=== PATIENT | male | born 1950 | race Caucasian/White ===

== ENCOUNTER 2019-09-08 03:07 | Outpatient (CLI) | payer MEDICARE, SELFPAY ==
[2019-09-08 10:26] LABS: Calculated LDL 198 mg/dL (<100); Cholesterol 262 mg/dL (<200); Glucose 90 mg/dL (74-106); HDL Cholesterol 50 mg/dL (40-60); Triglyceride 73 mg/dL (<150)
== END 2019-09-08 03:27 ==
PROVIDERS: PCP Nurse Practitioner; Visit Provider Nurse Practitioner
DX: E78.89 Other lipoprotein metabolism disorders (principal); Z13.1 Encounter for screening for diabetes mellitus; Z13.6 Encounter for screening for cardiovascular disorders
CPT/HCPCS: 36415; 80061; 82947

== ENCOUNTER 2019-09-13 02:34 | Outpatient (CLI) | payer MEDICARE, SELFPAY ==
--- NOTE | 2019-10-03 08:20 | ZIOP_ITS ---
Date of service: 10/03/19 Time of Service: 08:20 ZIO Patch Marketing Communications Assistant Note: There is a 2-week ZIO patch ordered for the indication of palpitations. ?The patient was in normal sinus rhythm for the majority of the recording. ?There were 9 episodes of supraventricular tachycardia with the longest lasting 19 beats. ?There were frequent (8.7%) isolated supraventricular ectopic beats. ?There were no episodes of ventricular tachycardia and rare (less than 1%) single ventricular ectopic beats. ?There were no episodes of atrial fibrillation no pauses greater than 3 seconds and no episodes of high degree heart block. ?Patient triggered events were associated with sinus rhythm as well as supraventricular ectopic beats.
== END 2019-09-13 02:54 ==
PROVIDERS: PCP Nurse Practitioner; Visit Provider Nurse Practitioner
DX: R00.2 Palpitations (principal); I49.3 Ventricular premature depolarization
CPT/HCPCS: 93270

== ENCOUNTER 2019-10-03 08:20 | Outpatient (CLI) | payer MEDICARE, SELFPAY | END 2019-10-03 08:40 | PROVIDERS: PCP Nurse Practitioner; Referring Provider Nurse Practitioner; Visit Provider Internal Medicine Cardiovascular Disease | DX: R00.2 Palpitations (principal); I49.3 Ventricular premature depolarization | CPT/HCPCS: 0298T ==

== ENCOUNTER 2019-12-20 19:33 | Outpatient (REF) | payer MEDICARE, SELFPAY ==
[2019-12-20 20:01] LABS: Calculated LDL 188 mg/dL (<100); Cholesterol 255 mg/dL (<200); HDL Cholesterol 49 mg/dL (40-60); Triglyceride 90 mg/dL (<150)
== END 2019-12-20 19:53 ==
LOC: LBN 19:33
PROVIDERS: PCP Nurse Practitioner; Visit Provider Nurse Practitioner
DX: E78.5 Hyperlipidemia, unspecified (principal)
CPT/HCPCS: 80061

== ENCOUNTER → 2020-01-03 10:02 | Outpatient (BNVA) | payer MEDICARE, SELFPAY | PROVIDERS: PCP Nurse Practitioner; Referring Provider Nurse Practitioner; Visit Provider Surgery | DX: K40.90 Unilateral inguinal hernia, without obstruction or gangrene, not specified as recurrent (principal); I10 Essential (primary) hypertension | CPT/HCPCS: 99214 ==

== ENCOUNTER → 2020-03-30 14:06 | Outpatient (BNVA) | payer MEDICARE, SELFPAY | PROVIDERS: PCP Nurse Practitioner; Referring Provider Nurse Practitioner; Visit Provider Surgery | DX: K40.90 Unilateral inguinal hernia, without obstruction or gangrene, not specified as recurrent (principal); I10 Essential (primary) hypertension | CPT/HCPCS: 99213 ==

== ENCOUNTER 2020-05-18 07:43 | Outpatient (CLI) | payer MEDICARE, SELFPAY ==
[2020-05-19 12:52] LABS: COVID-19 RT-PCR Result NEGATIVE (Negative)
== END 2020-05-18 08:03 ==
PROVIDERS: PCP Nurse Practitioner; Visit Provider Surgery
DX: Z01.818 Encounter for other preprocedural examination (principal); Z11.59 Encounter for screening for other viral diseases
CPT/HCPCS: U0003

== ENCOUNTER 2020-05-23 06:14 | Day surgery (SDC) | payer MEDICARE, SELFPAY ==
[2020-05-23] VITALS (10 sets, daily range): BP systolic 110–146; BP diastolic 49–74; PULSE 57–73; RESP 12–25; TEMP 36–36.6; O2SAT 14–97
--- NOTE | 2020-05-23 06:18 | HPE_ITS ---
Date of service: 05/23/20 Time of Service: 06:19 Assessment and Plan Assessment and plan (1) Right inguinal hernia: Status: Acute Assessment and plan: 69 year old male with a right inguinal hernia with mild discomfort 45 minutes spend in discussion We reviewed the anatomy of the inguinal hernia region. We discussed open repair with mesh and its complications including recurrence rate and chronic pain. We discussed hernia repair without mesh which I do not perform in adults. I did tell him that I dcould try and find someone in [place] that did repairs without mesh if he wanted. We reviewed physical limitations after surgery We discussed TAP block and post-op pain control We discussed COVID testing prior to surgery P\\ Right inguinal Hernia repair with mesh once his BP is under better control Risks, benefits and complications have been reviewed. Complications include but are not limited to bleeding, pain, infection, injury to underlying structures like bowel and adverse reaction to the medication. Questions were entertained and answered to their satisfaction and they wished to proceed. No guarantees were given or implied History of Present Illness Narrative: Mr. Renee noticed a bulge in the right groin area while taking a shower. It was non-tender. Since then he has noticed the bulge. It is causing mild discomfort when having a BM or being active. No changes in bowel habits. 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 He was seen back in December and I spend a long time going over surgery with him. At that time he was interested in having a repair without mesh. Since I last saw him he has done some herbal patches as well as some massage therapy but has had no improvement in the hernia. He feels like he is ready to proceed with surgery. He was started on Lisinopril and amlodipine. His BP's have been much better with diastolics in the 70's. Review of Systems Constitutional Constitutional: Denies fever(s), Denies headache(s) and Denies weakness ENT Ears, Nose, Mouth, and Throat: Denies headache(s) Cardiovascular Cardiovascular: Denies chest pain, Denies chest pain at rest, Denies irregular heart rhythm, Denies dyspnea and Denies dyspnea on exertion Respiratory Respiratory: Reports cough, Denies dyspnea and Denies dyspnea on exertion Gastrointestinal Gastrointestinal: Reports as per HPI Genitourinary Genitourinary: Denies dysuria, Reports urinary incontinence and Denies urinary urgency Neurologic Neurologic: Denies headache(s) and Denies weakness Endocrine Endocrine: Reports system reviewed and no additional complaints, except as documented Hematologic/Lymphatic Hematologic/Lymphatic: Denies easy bruising and Denies lymphadenopathy [facility] Medical History Dribbling urine HTN (hypertension) Hyperlipidemia Orthostatic dizziness Palpitations Had worked up with ZIO patch per Peritz 09/13/19 Per note:?The patient was in normal sinus rhythm for the majority of the recording. ?There were 9 episodes of supraventricular tachycardia with the longest lasting 19 beats. ?There were frequent (8.7%) isolated supraventricular ectopic beats. ?There were no episodes of ventricular tachycardia and rare (less than 1%) single ventricular ectopic beats. ?There were no episodes of atrial fibrillation no pauses greater than 3 seconds and no episodes of high degree heart block. ?Patient triggered events were associated with sinus rhythm as well as supraventricular ectopic beats. Weight loss Surgical History History of tonsillectomy and adenoidectomy History of vasectomy Family History Mother Breast cancer Heart disease Father Stroke Sister No problems noted. Son Alcohol abuse now sober Depression Daughter No problems noted. Social History Smoking/Tobacco Use Status: Former Tobacco Use Quit Date: 07/27/94 Second Hand Exposure: Yes Smoking risk assessment performed?: Yes Alcohol Intake: former Drug use: Never Substance use type: does not use Household members: significant other and other Details: one young adult Housing: house Communication Needs: Corrective Lenses Do you need help understanding health information?: Rarely Pets and animals: Yes Pets and animals: cat(s) and other Details: rabbits Sexually active: Yes Do you think of yourself as: straight/heterosexual Current gender identity: male What is your relationship status?: living with partner How often do you talk on the phone with friends or family?: three or more times per week How often do you get together with friends or relatives?: three or more times per week How often do you attend mosque or sabianist services?: decline to answer Do you belong to any clubs or organized social groups?: yes Panel score (0-1 are the most socially isolated patients): 3 Duration: < 15 minutes/day Frequency: 1-2 times per week Humera/Yarsanism: Other Special humera needs: No Seatbelt use: always Drive intox or ride w/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 Do you feel safe in your relationship?: Yes Meds Home Medications and Allergies Home Medications Medication Instructions Recorded Confirmed Type ibuprofen 200 mg capsule 200 mg PO Q6H PRN 09/13/19 05/21/20 History amlodipine 5 mg tablet 5 mg PO DAILY #30 tab 05/11/20 05/21/20 Rx lisinopril 40 mg tablet 40 mg PO DAILY #90 tab 05/11/20 05/21/20 Rx cholecalciferol (vitamin D3) 50 mcg PO DAILY 05/21/20 05/21/20 History [Vitamin D3] folic acid 1 mg PO DAILY 05/21/20 05/21/20 History multivitamin 1 tab PO DAILY 05/21/20 05/21/20 History Allergies Allergy/AdvReac Type Severity Reaction Status Date / Time No Known Allergies Allergy Verified 05/21/20 13:42 Exam Const General: healthy appearing and comfortable Resp Effort & Inspection: normal respiratory effort Auscultation: clear to auscultation bilaterally Cardio Rate: regular rate Rhythm: regular rhythm Heart Sounds: no click, no gallops and no murmurs
--- NOTE | 2020-05-23 06:22 | ROE_ITS ---
Date of service: 05/23/20 Time of Service: 09:02 Operative Note Operative Note DATE OF PROCEDURE: 05/23/20 PRE-OP DIAGNOSIS: Right inguinal hernia POST-OP DIAGNOSIS: other (Direct and indirect hernia) PROCEDURE: Right inguinal hernia repair with mesh SURGEON: Audrey Salazar EMBEDDED SOFTWARE TEST ENGINEER: Svetlana Field ANESTHESIA: GETA (ASA 2/ Lianna Buenrostro CRNA) and regional (Right TAP block) ESTIMATED BLOOD LOSS: 25 PATHOLOGY: none sent COMPLICATIONS: None Patient was transported to: PACU Patient's condition: stable Implants: BARD MESH: [id number] Indications: Mr. Renee 9-year-old gentleman which has given him some discomfort. He was seen in the office back in March to discuss a repair. At that time his blood pressure was quite high and so I recommended he start his lisinopril and talk to his primary care physician so we could bring his blood pressure down a little bit to minimize risk of [place] or stroke. Blood pressure is much better controlled. He is ready to proceed with right inguinal hernia repair with mesh. Risks benefits and complications were reviewed with him. Questions were entertained and answered to satisfaction. No guarantees were given or implied. Findings: Large indirect hernia with sac and moderate sized direct hernia Procedure Description: After informed consent was obtained the patient was taken to the operating room and placed in a supine position. Monitors and SCDs were applied and a timeout was done. The patient's name, date of , procedure type, procedure site, allergies to medications, preoperative antibiotic, and DVT prophylaxis were all reviewed. Fire risk was assessed. Next anesthesia did a tap block on the right side under ultrasound guidance. Please see their separate dictation. Once anesthesia was done the abdomen was prepped and draped in a sterile surgical fashion. Exparel mixed with 0.25% bupivocaine was injected into the dermis in the right lower quadrant. An incision was made with a 15 blade in the right lower quadrant. Dissection was done with cautery through the subcutaneous tissues and Missael's fascia down to the external oblique fascia. The external ring was identified and the external oblique fascia was opened sharply through the external ring. The cut fascia was grasped with hemostats the cord structures were identified and a [place] drain was placed around them. The cremasteric muscle was dissected away from the cord structures using both cautery and blunt dissection. A hernia sac was identified. It was large. It was dissected away from the cord structures using blunt dissection and cautery. The hernia sac was opened. No bowel was identified. The hernia sac was then suture ligated and amputated. The remnant was pushed back into the peritoneum. The ilioinguinal nerve was identified and cut. A 6 x 6 piece of mesh was then cut in half. One half was cut in thirds and a plug was created. The plug was placed into the indirect defect and secured with 2-0 proline. The other half of the mesh was cut to size and attached to the lacunar ligament using a 2-0 Prolene double armed suture. The mesh was secured laterally and medially with a 2-0 Prolene, with a running stitch. The tails of the mesh were wrapped around the cord structures effectively cinching down the internal ring. Once the mesh was secured the tissues were irrigated with some normal saline. No bleeding was identified. The external oblique fascia was re-approximated using 0 Vicryl running stitch. The Missael's fascia was re-approximated using interrupted 3-0 Vicryl. The dermis was re-approximated with a running 4-0 Vicryl. The skin was cleaned and dried and skin affix was applied. The patient was woken up and taken back to recovery in stable condition. There were no immediate complications. Sponge, instrument and needle counts were correct at the end of the case x2.
--- NOTE | 2020-05-23 06:25 | PDOC.DSDIS_ITS ---
Discharge Plan Disposition Patient Disposition: HOME Condition: Good Discharge Details Reason For Visit: right inguinal hernia Attending Provider: Audrey Salazar Primary Care Provider: Elizabeth Vallecillo Home Meds and New Rx's Prescriptions: New ibuprofen 600 mg tablet 600 mg PO Q6H PRN (Reason: fever or pain) Qty: 30 RF: 0 acetaminophen [Tylenol] 325 mg capsule 650 mg PO Q6H PRN (Reason: fever or pain) Qty: 30 RF: 0 tramadol 50 mg tablet 50 mg PO Q6H PRNQty: 14 RF: 0 Continued lisinopril 40 mg tablet 40 mg PO DAILY Qty: 90 RF: 4 amlodipine 5 mg tablet 5 mg PO DAILY Qty: 30 RF: 0 multivitamin Tablet 1 tab PO DAILY RF: 0 folic acid 1 mg Tablet 1 mg PO DAILY RF: 0 cholecalciferol (vitamin D3) [Vitamin D3] 50 mcg (2,000 unit) Capsule 50 mcg PO DAILY RF: 0 Discontinued ibuprofen 200 mg capsule 200 mg PO Q6H PRNRF: 0 Discharge Instructions Additional Instructions: Activity at Home after surgery: 1. Make sure you walk outside at least 4 times per day 2. You should be able to climb a flight of stairs 3. No driving while in pain or taking pain medications 4. No strenuous activity or heavy lifting for 4 weeks (open surgery) Diet, Nutrition, & wound healin. Avoid alcohol until after you are recovered from your surgery 2. Make sure to eat plenty of lean protein (meat, fish, eggs, cottage cheese, beans) 3. Eat a variety of fruits and vegetables. Eat plenty of high fiber foods to avoid constipation. 4. Drink plenty of liquids to stay hydrated and avoid constipation Pain Medications: 1. Tylenol 650 mg every 6 hours and Ibuprofen 600 mg every 6 hours as needed. May alternate between the 2 every 3 hours 2. If a narcotic has been prescribed take as directed only for breakthrough pain For Constipation: 1. Take Milk of Magnesia or MiraLax as needed for constipation Other: 1. You may shower daily. Do not scrub the incisions 2. Do not soak the incisions for 1 week 3. You may alternate ice and heat as needed for pain and swelling Wound Care: 1. Keep the incisions clean and dry Please call our office if you develop: 1. Fevers >101.5 2. Nausea or Vomiting 3. Worsening pain 4. Redness and thick discharge from the wounds If after hours please call the Hospital at and ask to speak to the on-call surgeon Stand Alone Forms: Rigo Heredia (DSU) Referrals: Audrey Salazar MD [ [facility] STAFF PHYSICIAN] - 06/08/20 9:00 am Activity:: no lifting, pulling or pushing >20 lb x 4 weeks Remove Dressings/Wound Care:: Do Not Remove Shower/Bathe:: 24 hours Diet:: As Tolerated Discharge Orders Discharge Orders: Discharge Order (Routine); Ordered 05/23/20 Ordered By: Audrey Salazar DS: Diagnosis Discharge Diagnosis (1) Right inguinal hernia: Status: Acute
[2020-05-23] MEDS: Lactated Ringers 1,000 ML 80 ML IV (07:18)
[2020-05-23] MEDS: ceFAZolin 2 GM/50 ML BAG IVPB (07:38)
[2020-05-23] MEDS: Bupivacaine 0.25% Pres-Free 30 ML VIAL (08:56)
[2020-05-23] MEDS: traMADol 50 MG TAB PO (10:50)
== END 2020-05-23 13:24 | disposition home or self-care (01) ==
PROVIDERS: PCP Nurse Practitioner; Visit Provider Surgery
PROC: (CPT 49505; principal; 2020-05-23 07:30)
DX: K40.90 Unilateral inguinal hernia, without obstruction or gangrene, not specified as recurrent (principal); I10 Essential (primary) hypertension; E78.5 Hyperlipidemia, unspecified
CPT/HCPCS: 49505; 76942; NC; C1781; J0690; J2001; J2704

== ENCOUNTER → 2020-06-08 09:04 | Outpatient (BNVA) | payer MEDICARE, SELFPAY | PROVIDERS: PCP Nurse Practitioner; Referring Provider Nurse Practitioner; Visit Provider Surgery | DX: Z48.815 Encounter for surgical aftercare following surgery on the digestive system (principal) ==

== ENCOUNTER 2020-09-21 21:15 | Outpatient (REF) | payer MEDICARE, SELFPAY ==
[2020-09-21 21:26] LABS: C-Reactive Protein 0.22 mg/dL (0.0-0.3); Potassium 4.3 mmol/L (3.5-5.1)
[2020-09-21 21:29] LABS: Hemoglobin A1C 5.5 % (<5.7)
[2020-09-24 09:09] LABS: Homocysteine 26.2 umol/L (5.0-13.9)
== END 2020-09-21 21:16 | disposition home or self-care (01) ==
LOC: LBN 21:15
PROVIDERS: PCP Nurse Practitioner; Visit Provider Nurse Practitioner
DX: I10 Essential (primary) hypertension (principal); E78.5 Hyperlipidemia, unspecified; R79.89 Other specified abnormal findings of blood chemistry; N39.0 Urinary tract infection, site not specified
CPT/HCPCS: 83090; 87077; 82565; 83036; 84132; 86140; 87086; 87186

== ENCOUNTER 2020-10-01 21:03 | Outpatient (REF) | payer MEDICARE, SELFPAY ==
[2020-10-01 21:43] LABS: Bilirubin Negative (Negative); Blood Small (Negative); Clarity Cloudy (Clear); Glucose Negative (Negative); Ketones Negative (Negative); Leukocyte Esterase Moderate (Negative); Nitrite Negative (Negative); Specific Gravity >= 1.030 (1.005-1.025); Urobilinogen 0.2 EU/dL (Up TO 0.2); pH 5.5 (5-8)
[2020-10-01 21:57] LABS: Bacteria Negative HPF (Negative); Casts Negative LPF (Negative); Crystals Negative HPF (Negative); Epithelial Cells Negative HPF (Negative); Mucus Negative (Negative); RBC 0-2 HPF (0-2); WBC >50 HPF (0-5)
[2020-10-01 21:58] LABS: C & S Indicated? Yes
== END 2020-10-01 21:04 | disposition home or self-care (01) ==
LOC: LBN 21:03
PROVIDERS: PCP Nurse Practitioner; Visit Provider Nurse Practitioner
DX: R39.15 Urgency of urination (principal)
CPT/HCPCS: 87077; 81003; 81015; 87086; 87186

== ENCOUNTER 2021-05-04 13:07 | Emergency (ER) | payer MEDICARE, SELFPAY ==
[2021-05-04 13:12] VITALS: BP 160/57; PULSE 90; RESP 14; TEMP 36.6; O2SAT 99
--- NOTE | 2021-05-04 13:25 | W.ED.GENAD ---
Discharge Plan Disposition Patient Disposition: HOME Condition: Stable Discharge Details Clinical Impression: Cellulitis of face Primary Care Provider: Elizabeth Vallecillo ED Provider: Preeti Tanner Home Meds and New Rx's Prescriptions: New cephalexin 500 mg tablet 500 mg PO QID 5 Days Qty: 20 RF: 0 Continued ibuprofen 600 mg tablet 600 mg PO Q6H PRN (Reason: fever or pain) Qty: 30 RF: 0 amlodipine 5 mg tablet 5 mg PO DAILY Qty: 90 RF: 3 lisinopril 40 mg tablet 40 mg PO DAILY Qty: 90 RF: 4 multivitamin Tablet 1 tab PO DAILY RF: 0 folic acid 1 mg Tablet 1 mg PO DAILY RF: 0 cholecalciferol (vitamin D3) [Vitamin D3] 50 mcg (2,000 unit) Capsule 50 mcg PO DAILY RF: 0 acetaminophen [Tylenol] 325 mg capsule 650 mg PO Q6H PRN (Reason: fever or pain) Qty: 30 RF: 0 Discharge Instructions Instructions: Cellulitis (ED) Additional Instructions: Your exam today is most concerning for cellulitis. Please take the antibiotics as prescribed. Even if symptoms improve, please take the entire course. You may use Tylenol and/or ibuprofen as needed for discomfort. Please continue to monitor the area for spreading of the infection. If the area begins to encroach on your eye visual changes, fever/chills, spreading of the redness or other new/worsening symptom please seek care urgently once again. Otherwise, please call your primary care in 1 day to schedule follow-up appointment beginning of the week for reevaluation. Referrals: Elizabeth Vallecillo, [employer] [Primary Care Provider] - Discharge Data Discharge Date/Time-TO BE ENTERED AT DEPARTURE: 05/04/21 14:37 Medical Decision Making Patient is a pleasant 70-year-old male presenting today with chief complaint of rash to the right side of his face. Reports that this initially began on Thursday. Associates this with either a bug bite or popping a local pimple. States that initially this began to improve but then began worsening yesterday. Noted spreading of the redness and discomfort today along the upper outer aspect of the right eyebrow in the adventism region. No change in his vision. No fevers or chills. States he is feeling well. He reports that he has had similar symptoms historically. Was diagnosed with erysipelas on the contralateral side of his face a few years ago. On exam, patient appears nontoxic. He is a area of erythema and warmth. No fluctuant area or site of localized swelling to suggest abscess. Appreciated going into the ear, involving the eye or surrounding eye structures, intraorally. Patient appears nontoxic, he is afebrile. Exam is not consistent with erysipelas today. More consistent with cellulitis. Will treat with Keflex. He was also questioning if this could potentially be shingles. However, I do not note any pustules or the pain you typically see with shingles. Encourage hydration. We discussed pain management. Strict return precautions were discussed, particular signs of worsening cellulitis or involvement of the eye. He will follow-up with primary care next week. All of his questions and concerns were addressed, he is in agrement with this plan. [facility] General Mode of arrival: ambulatory. Date/Time Provider Initiated Documentation: 05/04/21 13:25. Limitations to Documentation: no limitations. Information obtained by: patient and RN notes reviewed. History of Present Illness 70 year old M presents to the emergency department with the chief complaint of right sided facial pain, redness, described as mild, with intensity rated at 3. Quality is described as aching, and is localized to the face. Patient reports no radiation. Patient started experiencing this day(s) and it has been constant. No relieving factors improve symptom(s), No exacerbating factors reported . Patient notes rash; denies chest pain, cough, fever/chills, loss of appetite and nausea/vomiting. Patient did receive the following treatments prior to arrival, none Related Data Home Medications Medication Instructions Recorded Confirmed cholecalciferol (vitamin D3) 50 mcg PO DAILY 05/21/20 05/04/21 [Vitamin D3] folic acid 1 mg PO DAILY 05/21/20 05/04/21 multivitamin 1 tab PO DAILY 05/21/20 05/04/21 acetaminophen [Tylenol] 650 mg PO Q6H PRN #30 cap 05/23/20 05/04/21 ibuprofen 600 mg tablet 600 mg PO Q6H PRN #30 tab 06/02/20 05/04/21 amlodipine 5 mg tablet 5 mg PO DAILY #90 tab 09/05/20 05/04/21 lisinopril 40 mg tablet 40 mg PO DAILY #90 tab 09/05/20 05/04/21 cephalexin 500 mg PO QID 5 Days #20 tab 05/04/21 Previous Rx's Medication Instructions Recorded acetaminophen [Tylenol] 650 mg PO Q6H PRN #30 cap 05/23/20 ibuprofen 600 mg tablet 600 mg PO Q6H PRN #30 tab 06/02/20 amlodipine 5 mg tablet 5 mg PO DAILY #90 tab 09/05/20 lisinopril 40 mg tablet 40 mg PO DAILY #90 tab 09/05/20 cephalexin 500 mg PO QID 5 Days #20 tab 05/04/21 Allergies Allergy/AdvReac Type Severity Reaction Status Date / Time No Known Allergies Allergy Verified 05/04/21 13:19 General Stated Complaint: FacialProb RYAN: 3 Review of Systems Constitutional Constitutional: Reports as per HPI, Denies chills, Denies fever(s) and Denies headache(s) Eyes Eyes: Reports as per HPI, Denies change in vision, Denies eye discharge and Denies irritation ENT Ears, Nose, Mouth, and Throat: Reports as per HPI, Denies ear discharge, Denies otalgia, Denies headache(s), Denies hoarseness, Denies lip swelling, Denies mouth lesions, Denies mouth pain, Denies odynophagia, Denies sore throat and Denies throat swelling Cardiovascular Cardiovascular: Reports as per HPI, Denies chest pain and Denies dyspnea Respiratory Respiratory: Reports as per HPI, Denies cough and Denies dyspnea Gastrointestinal Gastrointestinal: Reports as per HPI and Denies odynophagia Integumentary/Breasts Skin/Breast: Reports as per HPI and Reports rash Neurologic Neurologic: Reports as per HPI and Denies headache(s) Allergic/Immunologic Allergic/Immunologic: Denies lip swelling and Denies throat swelling [facility] Medical History (Updated 05/04/21 @ 13:58 by GRAYSON Malhotra) Dribbling urine HTN (hypertension) Hyperlipidemia Orthostatic dizziness Palpitations Had worked up with ZIO patch per Peri 09/13/19 Per note:?The patient was in normal sinus rhythm for the majority of the recording. ?There were 9 episodes of supraventricular tachycardia with the longest lasting 19 beats. ?There were frequent (8.7%) isolated supraventricular ectopic beats. ?There were no episodes of ventricular tachycardia and rare (less than 1%) single ventricular ectopic beats. ?There were no episodes of atrial fibrillation no pauses greater than 3 seconds and no episodes of high degree heart block. ?Patient triggered events were associated with sinus rhythm as well as supraventricular ectopic beats. Right inguinal hernia Repaired 04/2020 Weight loss Surgical History History of tonsillectomy and adenoidectomy History of vasectomy Family History Mother Breast cancer Heart disease Father Stroke Sister No problems noted. Son Alcohol abuse now sober Depression Daughter No problems noted. Social History Smoking/Tobacco Use Status: Former Tobacco Use Quit Date: 07/27/94 Second Hand Exposure: Yes Smoking risk assessment performed?: Yes Alcohol Intake: former Drug use: Never Substance use type: does not use Household members: significant other and other Details: one young adult Housing: house Communication Needs: Corrective Lenses Do you need help understanding health information?: Rarely Pets and animals: Yes Pets and animals: cat(s) and other Details: rabbits Sexually active: Yes Do you think of yourself as: straight/heterosexual Current gender identity: male What is your relationship status?: living with partner How often do you talk on the phone with friends or family?: three or more times per week How often do you get together with friends or relatives?: three or more times per week How often do you attend baptist or shinto services?: decline to answer Do you belong to any clubs or organized social groups?: yes Panel score (0-1 are the most socially isolated patients): 3 Duration: < 15 minutes/day Frequency: 1-2 times per week Humera/Episcopal: Other Special humera needs: No Seatbelt use: always Drive intox or ride w/intox jeep driver: No Do you feel safe at home: Yes Do you feel safe in your relationship?: Yes Exam Const General: cooperative, healthy appearing, comfortable, no acute distress, well developed and well groomed Nutritional Appearance: average body habitus and well nourished Orientation: alert and awake HENDE Head: normal to inspection, normocephalic and atraumatic Ears: hearing grossly normal bilaterally, external ears normal and TM's normal bilaterally General nose exam: external nose normal and nares normal Face and sinus: sinuses nontender, no crepitus, erythema, no edema, no fluctuance and tenderness Face images: 1. Area of erythema, warmth and discomfort. Edges volar and and are not consistent with decreased raised edges of erysipelas. I do not appreciate any crepitus. No significant swelling. No focal area to suggest an abscess. This does not involve the eye related structures. More along the adventism and upper edge of the eyebrow. Ear is uninvolved. He does have some dry skin Mouth: oral mucosae normal, lip normal, tongue normal, oropharynx normal, moist mucous membranes and no muffled voice Teeth and gingiva: dentition normal Throat: posterior oropharynx normal, tonsils normal and uvula midline Eyes General: appearance normal, both eyes and all related structures Neck Neck: normal visual inspection, full ROM, no lymphadenopathy and no meningeal signs Resp Effort & Inspection: normal respiratory effort, able to speak in complete sentences and no respiratory distress Auscultation: clear to auscultation bilaterally, no rales, no rhonchi and no wheezes Cardio Rate: regular rate Rhythm: regular rhythm Heart Sounds: S1 normal and S2 normal Skin General skin exam: erythema Neuro General: patient alert and patient awake Cognition: normal cognition Speech: speech normal Gait: normal gait Psych Appearance: grossly normal and well kempt Mental Status: mental status grossly normal Speech and Movement: speech and movement normal Course Vital Signs Vital signs: Vital Signs Temperature 36.6 C 05/04/21 13:12 Pulse 90 05/04/21 13:12 Respiratory Rate 14 05/04/21 13:12 Blood Pressure 160/57 H 05/04/21 13:12 Pulse Oximetry 99 05/04/21 13:12 Temperature 36.6 C 05/04/21 13:12 Temperature Source Tympanic 05/04/21 13:12 Pulse 90 05/04/21 13:12 Respiratory Rate 14 05/04/21 13:12 Respiratory Effort Non-Labored 05/04/21 13:18 Blood Pressure 160/57 H 05/04/21 13:12 Pulse Oximetry 99 05/04/21 13:12 Oxygen Delivery Method Room Air 05/04/21 13:12 Oxygen Flow Rate 0 05/04/21 13:12 Pain Level 3 05/04/21 13:12
== END 2021-05-04 14:37 | disposition home or self-care (01) ==
PROVIDERS: Emergency Provider Physician Assistant; PCP Nurse Practitioner
DX: L03.211 Cellulitis of face (principal)
CPT/HCPCS: 99283

== ENCOUNTER 2021-07-29 14:09 | Emergency (ER) | payer MEDICARE, SELFPAY ==
[2021-07-29 14:26] VITALS: BP 164/88; PULSE 73; RESP 13; TEMP 36.7; O2SAT 97
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
--- NOTE | 2021-07-29 14:45 | RT.EKG_ITS ---
APPROVED REPORT Exam: Resting ECG Reason for Exam: nausea/vomiting Patient Location: E HR:72 bpm ECG Measurements Heart Rate 72 AXIS OK 118 P -40 QRSd 98 QRS 20 QT 388 T 52 QTc 424 Conclusion Sinus rhythm...normal P axis, V-rate 60- 99. Sinus. No STEMI. I have reviewed and interpreted ECG and agree with software generated interpretation.
[2021-07-29 15:25] LABS: Abs Immature Grans 0.04 10^3/uL (0.0-0.06); Absolute Basophil Count 0.05 10^3/uL (0.0-0.2); Absolute Eosinophil Count 0.07 10^3/uL (0.0-0.7); Absolute Lymphocyte Count 2.25 10^3/uL (1.2-3.4); Absolute Monocyte Count 0.67 10^3/uL (0.1-0.8); Absolute Neutrophil Count 6.28 10^3/uL (1.2-6.7); Basophils % 0.5; Eosinophils % 0.7; HCT 46.3 % (40.0-50.0); HGB 15.5 g/dL (13.5-17.5); Immature Grans % 0.4; MCH 29.8 pg (27.0-33.0); MCHC 33.5 % (32.0-36.0); MPV 8.7 fL (8.0-11.0); Monocytes % 7.2; Neutrophils % 67.2; Nucleated RBC 0 %; Platelet Count 247 10^3/uL (130-400); RDW 13.5 % (11.8-14.1); RDW-SD 43.8 fL; WBC 9.36 10^3/uL (4.4-10.8)
[2021-07-29 15:42] LABS: ALT 26 U/L (16-63); AST 16 U/L (15-37); Albumin 4.3 g/dL (3.4-5.0); Alkaline Phosphatase 56 U/L (46-116); Anion Gap 9.8 mmol/L (3-11); BUN 24 mg/dL (7-18); Bilirubin, Total 0.9 mg/dL (0.2-1.0); CO2 28.2 mmol/L (21.0-32.0); CREATININE 1.1 mg/dL (0.70-1.30); Calcium 9.7 mg/dL (8.5-10.1); Chloride 102 mmol/L (98-107); Glucose 99 mg/dL (74-106); Magnesium 2.5 mg/dL (1.8-2.4); Potassium 4.2 mmol/L (3.5-5.1); Sodium 140 mmol/L (136-145); Total Protein 7.8 g/dL (6.4-8.2); Troponin I < 50 ng/L (<or=60)
[2021-07-29] MEDS: Mylanta Suspension 30 ML CUP PO (15:56)
[2021-07-29] MEDS: Pantoprazole 40 MG VIAL IVP (15:56)
[2021-07-29] MEDS: Ondansetron 4 MG/2 ML VIAL IVP (15:57)
[2021-07-29] MEDS: Normal Saline 1,000 ML 1000 ML IV (16:05)
[2021-07-29 16:48] LABS: Bilirubin Negative (Negative); Blood Trace-lysed (Negative); Clarity Clear (Clear); Glucose Negative (Negative); Ketones 15 mg/dL (Negative); Leukocyte Esterase Negative (Negative); Nitrite Negative (Negative); Specific Gravity >= 1.030 (1.005-1.025); Urobilinogen 0.2 EU/dL (Up TO 0.2); pH 5.5 (5-8)
[2021-07-29 16:57] LABS: Bacteria Rare HPF (Negative); C & S Indicated? No; Casts Negative LPF (Negative); Crystals Negative HPF (Negative); Epithelial Cells Few HPF (Negative); Mucus Moderate (Negative); RBC 0-2 HPF (0-2)
[2021-07-29 17:01] LABS: Lipase 85 U/L (73-393)
[2021-07-29 17:53] VITALS: BP 160/70; PULSE 67; RESP 19; TEMP 36.8; O2SAT 98
[2021-07-29] MEDS: Ondansetron O.D.T. 4 MG TABEF, 3 TABS/BTL PO (18:06)
[2021-07-31 11:25] LABS: Lyme Ab w Rflx to Lyme Confirm Negative (Negative)
[2021-07-31 15:59] LABS: COVID-19 RT-PCR UVMMC Result Presumptive Positive (Negative)
--- NOTE | 2021-07-31 16:03 | W.ED.FU ---
Pt called at home on 07/31/21 and notified of presumptive positive Covid test result. Pt states he has been feeling better. Advised to follow with his primary doctor for consideration for repeat Covid testing if desired or indicated or if he qualifies for monoclonal antibody infusion. Advised to return to the ED with any worsening or new concerning symptoms.
[2021-08-01 19:23] LABS: Anaplasma phagocytophilum Negative (Negative); B. miyamotoi PCR Negative (Negative); Babesia divergens/MO-1 Negative (Negative); Babesia duncani Negative (Negative); Babesia microti Negative (Negative); Ehrlichia chaffeensis Negative (Negative); Ehrlichia ewingii/canis Negative (Negative); Ehrlichia muris eauclairensis Negative (Negative)
== END 2021-07-29 18:02 | disposition home or self-care (01) ==
PROVIDERS: Emergency Provider Physician Assistant; PCP Nurse Practitioner
DX: U07.1 COVID-19 (principal); E86.0 Dehydration; R11.2 Nausea with vomiting, unspecified
CPT/HCPCS: 36415; 80053; 83690; 87798; 93005; 96361; 96374; 96375; 99284; U0003; U0005; 81003; 81015; 83735; 84484; 85025; 86618; 93010; 99283; J2405

== ENCOUNTER 2022-01-17 02:19 | Outpatient (CLI) | payer MEDICARE, SELFPAY ==
[2022-01-17 08:57] LABS: Anion Gap 6.3 mmol/L (3-11); BUN 20 mg/dL (7-18); CO2 29.7 mmol/L (21.0-32.0); Calcium 8.9 mg/dL (8.5-10.1); Calculated LDL 187 mg/dL (<100); Chloride 106 mmol/L (98-107); Cholesterol 264 mg/dL (<200); Glucose 93 mg/dL (74-106); HDL Cholesterol 49 mg/dL (40-60); Potassium 4.1 mmol/L (3.5-5.1); Sodium 142 mmol/L (136-145); Triglyceride 142 mg/dL (<150)
== END 2022-01-17 02:20 | disposition home or self-care (01) ==
LOC: LBO 02:19
PROVIDERS: PCP Nurse Practitioner; Visit Provider Nurse Practitioner
DX: E78.2 Mixed hyperlipidemia (principal); R42 Dizziness and giddiness
CPT/HCPCS: 36415; 80048; 80061

== ENCOUNTER 2023-04-07 02:48 | Outpatient (CLI) | payer MEDICARE, SELFPAY ==
[2023-04-07 13:00] LABS: HCT 45.2 % (40.0-50.0); HGB 15.2 g/dL (13.5-17.5); MCHC 33.6 % (32.0-36.0); MCV 95 fL (80-95); MPV 8.9 fL (8.0-11.0); Platelet Count 221 10^3/uL (130-400); RBC 4.75 10^6/uL (4.36-5.78); RDW 12.4 % (11.8-14.1); RDW-SD 43.7 fL
[2023-04-07 13:10] LABS: Anion Gap 5.3 mmol/L (3-11); BUN 18 mg/dL (7-18); CO2 29.7 mmol/L (21.0-32.0); CREATININE 1.1 mg/dL (0.70-1.30); Calcium 9.4 mg/dL (8.5-10.1); Calculated LDL 209 mg/dL (<100); Chloride 106 mmol/L (98-107); Cholesterol 280 mg/dL (<200); Estimated GFR 71.32 (mL/min/1.73m2); Glucose 94 mg/dL (74-106); HDL Cholesterol 47 mg/dL (40-60); Potassium 4.8 mmol/L (3.5-5.1); Sodium 141 mmol/L (136-145); Triglyceride 123 mg/dL (<150)
== END 2023-04-07 02:49 | disposition home or self-care (01) ==
LOC: LOS 02:48
PROVIDERS: PCP Nurse Practitioner Family; Visit Provider Nurse Practitioner Family
DX: E78.5 Hyperlipidemia, unspecified; I10 Essential (primary) hypertension; R10.9 Unspecified abdominal pain
CPT/HCPCS: 36415; 80048; 80061; 85027

== ENCOUNTER 2023-12-31 12:31 | Emergency (ER) | payer MEDICARE, SELFPAY ==
[2023-12-31 12:39] VITALS: BP 139/68; PULSE 79; RESP 14; TEMP 36.9; O2SAT 97
[2023-12-31 12:46] VITALS: BP 139/68; PULSE 79; RESP 14; TEMP 36.9; O2SAT 97
--- NOTE | 2023-12-31 13:00 | DI.CT_ITS ---
Exam(s) CT ABDOMEN PELVIS W EXAM: CT ABDOMEN PELVIS W CLINICAL HISTORY: lower abd pain, n/v 4-5 days. TECHNIQUE: Imaging Protocol: Axial computed tomography images with coronal and sagittal reformatted images were created and reviewed CONTRAST MATERIAL: Intravenous: Omnipaque-350 100cc Oral: None COMPARISON: No exams were available for comparison FINDINGS: VISUALIZED LUNG BASES: No nodules nor pleural effusions evident. ABDOMEN: There is no ascites. LIVER: There are no focal hepatic lesions evident. No dilated intrahepatic ducts. GALLBLADDER/BILIARY: Very subtle density on the dependent wall the gallbladder may represent tiny wilma culi. Gallbladder is not distended and there is no evidence of acute cholecystitis. CBD is not dila philip. PANCREAS: Pancreatic head, uncinate process and neck appear unremarkable. There is a cystic structur e in the region of the pancreatic body which measures 1 by 0.8 cm. Pancreatic duct is not dilated. No peripancreatic fluid. SPLEEN: Spleen is not enlarged. No obvious intrasplenic lesions. Splenic and portal veins are paten t. ADRENALS: There are no significant adrenal masses. KIDNEYS:There are 2 small cysts in the right kidney both measuring less than 1 cm. There are no herlinda d renal masses nor calculi nor hydronephrosis.. ABDOMINAL AORTA: Calcified but not enlarged. LYMPH NODES:There is no retroperitoneal nor paraaortic adenopathy. ABDOMINAL WALL: No evidence of significant anterior abdominal wall nor inguinal hernia. GI: There is no evidence of bowel obstruction, free air, nor abscess. PELVIS: GI: Appendix appears unremarkable but there appears to be a small amount of fluid subjacent to the ap pendix measuring 1.8 cm wide by 1 cm AP by 3.5 cm craniocaudal. Osseous just above the right inguina l ring and correlation with any prior hernia surgery recommended.Sigmoid is redundant but without sig nificant diverticular disease. LYMPH NODES: There is no intrapelvic nor inguinal adenopathy. REPRODUCTIVE: Prostate is enlarged and lobulated in violates the bladder base. URINARY BLADDER: Urinary bladder wall is diffusely thickened probably related to cystitis and outlet obstruction. The bladder itself is not distended. OSSEOUS: No fractures and no significant osseous lesions. Chronic disc space narrowing at L2-3 and L4-5 levels. IMPRESSION: 1. There is small amount of fluid subjacent to the normal appearing appendix and just above the ingui nal ring. Correlation with prior surgical history recommended. This may be related to prior right i nguinal hernia repair. 2. No significant diverticular disease 3. Enlarged and lobulated prostate gland with violates the bladder base. 4. Diffuse thickening of the urinary bladder wall. Discussed by phone with ER physician. RADIATION DOSE DELIVERED: 767.86mGy.cm Total DLP DATA REPOSITORY: All CT scans at this facility are submitted to the National Radiology Data Registry (NRDR) Dose Index Registry (DIR) with the [employer] (ACR). RADIATION OPTIMIZATION: All CT scans at this facility use at least one of these dose optimization te chniques: automated exposure control; mA and/or kV adjustment per patient size (includes targeted exa ms where dose is matched to clinical indication); or iterative reconstruction.
[2023-12-31] MEDS: Lactated Ringers 1,000 ML 1000 ML IV (13:07)
[2023-12-31 13:11] LABS: Abs Immature Grans 0.04 10^3/uL (0.0-0.06); Absolute Basophil Count 0.05 10^3/uL (0.0-0.2); Absolute Lymphocyte Count 2.91 10^3/uL (1.2-3.4); Basophils % 0.4 %; Eosinophils % 0.7 %; HCT 45.1 % (40.0-50.0); HGB 16.1 g/dL (13.5-17.5); Immature Grans % 0.3 %; Lymphocytes % 21.5 %; MCH 32.6 pg (27.0-33.0); MCHC 35.7 % (32.0-36.0); MCV 91 fL (80-95); MPV 8.7 fL (8.0-11.0); Monocytes % 8.6 %; Neutrophils % 68.5 %; Platelet Count 255 10^3/uL (130-400); RBC 4.94 10^6/uL (4.36-5.78); RDW 12.4 % (11.8-14.1); WBC 13.53 10^3/uL (4.4-10.8)
[2023-12-31 13:12] LABS: Absolute Eosinophil Count 0.09 10^3/uL (0.0-0.7); Absolute Monocyte Count 1.16 10^3/uL (0.1-0.8); Absolute Neutrophil Count 9.27 10^3/uL (1.2-6.7)
--- NOTE | 2023-12-31 13:19 | ED.GENADUL_ITS ---
Discharge Plan Disposition Patient Disposition: Home Condition: Stable Discharge Details Clinical Impression: Enlarged prostate, Bladder wall thickening, Abdominal fluid collection Primary Care Provider: Siomara Mckeon ED Provider: Gallo Kang Home Meds and New Rx's Prescriptions: Continued latanoprost 0.005 % drops 1 drp ophthalmic (eye) QPM ibuprofen 600 mg tablet 600 mg PO Q6H PRN (Reason: fever or pain) Qty: 30 0RF lisinopril 30 mg tablet 30 mg PO DAILY Qty: 90 1RF amlodipine 5 mg tablet 5 mg PO DAILY Qty: 90 3RF ondansetron 4 mg tablet,disintegrating 4 mg PO Q8H PRN (Reason: nausea and vomiting) Qty: 10 0RF multivitamin Tablet 1 tab PO DAILY acetaminophen [Tylenol] 325 mg capsule 650 mg PO Q6H PRN (Reason: fever or pain) Qty: 30 0RF Discharge Instructions Additional Instructions: Please follow-up with general surgery and urology. Call tomorrow to schedule timely follow-up. General surgery would like to see you next week. Please contact your primary care physician to arrange follow-up. Return to the ER immediately for any worsening or new concerning symptoms. Referrals: [facility] [Provider Group] [facility] [Provider Group] Siomara Mckeon NP [Primary Care Provider] - [facility] Mode of arrival: ambulatory . Date/Time Provider Initiated Documentation: 12/31/23 12:46 . Limitations to Documentation: no limitations . Information obtained by: patient . HPI Narrative: 73-year-old male presents with chief complaint of abdominal discomfort. Patient notes nausea, vomiting, intermittent lower abdominal pain over the past 4 to 5 days. Patient notes pain comes in waves and feels like a gnawing sensation. Pain can be moderate to severe at times. He has no associated diarrhea. No urinary symptoms. Related Data Home Medications Medication Instructions Recorded Confirmed multivitamin 1 tab PO DAILY 05/21/20 12/31/23 acetaminophen 325 mg capsule 650 mg (2 x 325 mg) PO Q6H PRN 05/23/20 12/31/23 (Tylenol) fever or pain #30 caps ibuprofen 600 mg tablet 600 mg PO Q6H PRN fever or pain 06/02/20 12/31/23 #30 tabs latanoprost 0.005 % eye drops 1 drp ophthalmic (eye) QPM 01/28/22 12/31/23 lisinopril 30 mg tablet 30 mg PO DAILY #90 tabs 11/12/23 12/31/23 amlodipine 5 mg tablet 5 mg PO DAILY #90 tabs 11/24/23 12/31/23 ondansetron 4 mg disintegrating 4 mg PO Q8H PRN nausea and 12/30/23 12/31/23 tablet vomiting #10 tabs Previous Rx's Medication Instructions Recorded acetaminophen 325 mg capsule 650 mg (2 x 325 mg) PO Q6H PRN 05/23/20 (Tylenol) fever or pain #30 caps ibuprofen 600 mg tablet 600 mg PO Q6H PRN fever or pain 06/02/20 #30 tabs lisinopril 30 mg tablet 30 mg PO DAILY #90 tabs 11/12/23 amlodipine 5 mg tablet 5 mg PO DAILY #90 tabs 11/24/23 ondansetron 4 mg disintegrating 4 mg PO Q8H PRN nausea and 12/30/23 tablet vomiting #10 tabs Allergies Allergy/AdvReac Type Severity Reaction Status Date / Time No Known Allergies Allergy Verified 12/31/23 12:43 General Stated Complaint: Abd Prob RYAN: 3 Review of Systems Constitutional Constitutional: Denies fever(s) Gastrointestinal Gastrointestinal: Reports as per HPI and Denies coffee ground emesis Exam Const General: cooperative and no acute distress HENAZ Mouth: mucous membranes dry Eyes Conjunctivae: normal conjunctivae Sclera: normal sclerae EOM: EOM intact bilaterally Resp Auscultation: clear to auscultation bilaterally, no rales, no rhonchi and no wheezes Cardio Rate: regular rate and not tachycardic Rhythm: regular rhythm GI Palpation: soft, not firm, no guarding, no masses, not rigid and tender (Minimal central abdomen) Skin General skin exam: no rashes or lesions noted and turgor decreased Neuro General: patient alert, patient awake and tone normal Extrem General: no edema Course Vital Signs Vital signs: Vital Signs Temperature 36.9 C 12/31/23 12:39 Pulse 79 12/31/23 12:39 Respiratory Rate 14 12/31/23 12:39 Blood Pressure 139/68 12/31/23 12:39 Pulse Oximetry 97 12/31/23 12:39 Temperature 36.9 C 12/31/23 12:46 Temperature Source Temporal Artery Scan 12/31/23 12:46 Pulse 79 12/31/23 12:46 Respiratory Rate 14 12/31/23 12:46 Respiratory Effort Normal, Non-Labored 12/31/23 12:47 Blood Pressure 139/68 12/31/23 12:46 Blood Pressure Position Sitting 12/31/23 12:46 Pulse Oximetry 97 12/31/23 12:46 Oxygen Delivery Method Room Air 12/31/23 12:46 Oxygen Flow Rate 0 12/31/23 12:46 Pain Level 0 12/31/23 12:46 Comment Intermittent pain - no pain at this time 12/31/23 12:46 Lab/Test Results Lab/Test Results: Laboratory Tests Range/Units 12/31/23 13:01 WBC (4.4-10.8) 10^3/uL 13.53 H RBC (4.36-5.78) 10^6/uL 4.94 Hgb (13.5-17.5) g/dL 16.1 Hct (40.0-50.0) % 45.1 MCV (80-95) fL 91 MCH (27.0-33.0) pg 32.6 MCHC (32.0-36.0) % 35.7 RDW (11.8-14.1) % 12.4 Plt Count (130-400) 10^3/uL 255 MPV (8.0-11.0) fL 8.7 Immature Gran % % 0.3 Neutrophils % % 68.5 Lymphocytes % % 21.5 Monocytes % % 8.6 Eosinophils % % 0.7 Basophils % % 0.4 Nucleated RBC % (0.0-0.3) % 0.0 Absolute Neutrophils (1.2-6.7) 10^3/uL 9.27 H Absolute Lymphocytes (1.2-3.4) 10^3/uL 2.91 Absolute Monocytes (0.1-0.8) 10^3/uL 1.16 H Absolute Eosinophils (0.0-0.7) 10^3/uL 0.09 Absolute Basophils (0.0-0.2) 10^3/uL 0.05 Medical Decision Making 1322 -- 73-year-old male here with 4 to 5 days of nausea, vomiting, intermittent gnawing lower abdominal pain. Patient is hemodynamically stable. He does have some mild central abdominal tenderness on exam. He is dehydrated. Plan to treat with IV fluids. I offered IV antiemetics and he declined at this time. I will obtain CT of the abdomen pelvis to assess for acute surgical process including abscess. Of note, patient has never had screening colonoscopy. -- CT of the abdomen pelvis was interpreted by radiology:1. There is small amount of fluid subjacent to the normal appearing appendix and just above the inguinal ring. Correlation with prior surgical history recommended. This may be related to prior right inguinal hernia repair. 2. No significant diverticular disease 3. Enlarged and lobulated prostate gland with violates the bladder base. 4. Diffuse thickening of the urinary bladder wall. 1510 --patient was seen by Dr. Michael, on-call general surgeon, he evaluated the patient and establish plan for outpatient follow-up with likely outpatient ultrasound. All results were discussed with the patient. Usual customary discharge instructions reviewed. Patient understands the importance of timely follow-up with urology as well as general surgery. Lab Data Lab results reviewed: Yes I reviewed the patient's lab results. Labs: Laboratory Tests Range/Units 12/31/23 12/31/23 13:01 13:50 WBC (4.4-10.8) 10^3/uL 13.53 H RBC (4.36-5.78) 10^6/uL 4.94 Hgb (13.5-17.5) g/dL 16.1 Hct (40.0-50.0) % 45.1 MCV (80-95) fL 91 MCH (27.0-33.0) pg 32.6 MCHC (32.0-36.0) % 35.7 RDW (11.8-14.1) % 12.4 Plt Count (130-400) 10^3/uL 255 MPV (8.0-11.0) fL 8.7 Immature Gran % % 0.3 Neutrophils % % 68.5 Lymphocytes % % 21.5 Monocytes % % 8.6 Eosinophils % % 0.7 Basophils % % 0.4 Nucleated RBC % (0.0-0.3) % 0.0 Absolute Neutrophils (1.2-6.7) 10^3/uL 9.27 H Absolute Lymphocytes (1.2-3.4) 10^3/uL 2.91 Absolute Monocytes (0.1-0.8) 10^3/uL 1.16 H Absolute Eosinophils (0.0-0.7) 10^3/uL 0.09 Absolute Basophils (0.0-0.2) 10^3/uL 0.05 Sodium (136-145) mmol/L 139 Potassium (3.5-5.1) mmol/L 4.2 Chloride (98-107) mmol/L 102 Carbon Dioxide (21.0-32.0) mmol/L 27.8 Anion Gap (3-11) mmol/L 9.2 BUN (7-18) mg/dL 18 Creatinine (0.70-1.30) mg/dL 1.3 Est GFR (CKD-EPI 2020) (mL/min/1.73m2) 58.01 Glucose (74-106) mg/dL 105 Calcium (8.5-10.1) mg/dL 9.7 Total Bilirubin (0.2-1.0) mg/dL 0.8 AST (15-37) U/L 20 ALT (16-63) U/L 36 Alkaline Phosphatase (46-116) U/L 58 Total Protein (6.4-8.2) g/dL 7.9 Albumin (3.4-5.0) g/dL 4.5 Lipase (16-77) U/L 59 Urine Color (Yellow) Yellow Urine Clarity (Clear) Clear Urine pH (5-8) 5.5 Ur Specific [place] (1.005-1.025) >= 1.030 H Urine Protein (Neg-Trace) mg/dL 100 H Urine Ketones (Negative) mg/dL 40 H Urine Blood (Negative) Trace-intact H Urine Nitrite (Negative) Negative Urine Bilirubin (Negative) Negative Urine Urobilinogen (Up to 0.2) mg/dL 0.2 Ur Leukocyte Esterase (Negative) Negative Urine RBC (0-2) HPF 0-2 Urine WBC (0-5) HPF 0-2 Ur Epithelial Cells (Negative) HPF Rare Urine Crystals (Negative) HPF Negative Urine Bacteria (Negative) HPF Negative Urine Casts (Negative) LPF Negative Urine Mucus (Negative) Moderate Ur Culture Indicated? No Urine Glucose (Negative) mg/dL Negative Quality:SDOH Health Related Social Needs: No Data to Display PFSH All Active Problems (Updated 12/31/23 @ 15:15 by Gallo Kang MD) Abdominal fluid collection (Acute) Bladder wall thickening (Acute) Enlarged prostate (Acute) Abdominal discomfort (Acute) Vision changes (Acute) Skin lesions (Acute) Lightheadedness (Acute) HTN (hypertension) (Acute) Hyperlipidemia (Acute) Medical History Urinary urgency Right inguinal hernia Repaired 04/2020 Weight loss Dribbling urine Orthostatic dizziness Palpitations Had worked up with ZIO patch per Peritz 09/13/19 Per note:?The patient was in normal sinus rhythm for the majority of the recording. ?There were 9 episodes of supraventricular tachycardia with the longest lasting 19 beats. ?There were frequent (8.7%) isolated supraventricular ectopic beats. ?There were no episodes of ventricular tachycardia and rare (less than 1%) single ventricular ectopic beats. ?There were no episodes of atrial fibrillation no pauses greater than 3 seconds and no episodes of high degree heart block. ?Patient triggered events were associated with sinus rhythm as well as supraventricular ectopic beats. Surgical History History of tonsillectomy and adenoidectomy History of vasectomy Family History Mother , 89 Breast cancer Heart disease Father Stroke Sister No problems noted. Son Alcohol abuse now sober Depression Daughter No problems noted. Social History Smoking/Tobacco Use Status: Former Tobacco Use tobacco type: cigarettes Quit Date: 07/27/94 Tobacco: How many years used: 10 Second Hand Exposure: Yes Smoking risk assessment performed?: Yes Alcohol Intake: former Drug use: Never Substance use type: does not use Caregiver/Support person: No Household members: significant other Housing: house Communication Needs: None and Corrective Lenses Do you need help understanding health information?: Rarely Pets and animals: Yes Pets and animals: other Details: rabbits Sexually active: Yes Do you think of yourself as: straight/heterosexual Current gender identity: male What is your relationship status?: living with partner How often do you talk on the phone with friends or family?: once per week How often do you get together with friends or relatives?: once per week How often do you attend anabaptism or anabaptist services?: decline to answer Do you belong to any clubs or organized social groups?: yes Panel score (0-1 are the most socially isolated patients): 2 What type of physical activity do you participate in: weight lifting and yoga Duration: < 15 minutes/day Frequency: 1-2 times per week Humera/Synagogue: No preference Special humera needs: No Seatbelt use: always Drive 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
[2023-12-31 13:24] LABS: ALT 36 U/L (16-63); AST 20 U/L (15-37); Albumin 4.5 g/dL (3.4-5.0); Alkaline Phosphatase 58 U/L (46-116); Anion Gap 9.2 mmol/L (3-11); BUN 18 mg/dL (7-18); Bilirubin, Total 0.8 mg/dL (0.2-1.0); CO2 27.8 mmol/L (21.0-32.0); CREATININE 1.3 mg/dL (0.70-1.30); Calcium 9.7 mg/dL (8.5-10.1); Chloride 102 mmol/L (98-107); Estimated GFR 58.01 (mL/min/1.73m2); Glucose 105 mg/dL (74-106); Lipase 59 U/L (16-77); Potassium 4.2 mmol/L (3.5-5.1); Sodium 139 mmol/L (136-145); Total Protein 7.9 g/dL (6.4-8.2)
[2023-12-31 14:06] LABS: Bilirubin Negative (Negative); Blood Trace-intact (Negative); Clarity Clear (Clear); Glucose Negative (Negative); Ketones 40 mg/dL (Negative); Leukocyte Esterase Negative (Negative); Nitrite Negative (Negative); Specific Gravity >= 1.030 (1.005-1.025); Urobilinogen 0.2 mg/dL (Up to 0.2); pH 5.5 (5-8)
[2023-12-31] MEDS: Normal Saline - Diluent 50 ML VIAL IJ (14:12)
[2023-12-31 14:13] LABS: Bacteria Negative HPF (Negative); C & S Indicated? No; Casts Negative LPF (Negative); Crystals Negative HPF (Negative); Epithelial Cells Rare HPF (Negative); Mucus Moderate (Negative); RBC 0-2 HPF (0-2); WBC 0-2 HPF (0-5)
[2023-12-31] MEDS: Omnipaque 350 MG/ML 500 ML BTL-Imaging package 100 ML IJ (14:15)
--- NOTE | 2023-12-31 14:44 | SCONE_ITS ---
Date of service: 12/31/23 Time of Service: 14:44 Assessment and Plan Assessment and plan (1) Abdominal fluid collection: Status: Acute Assessment and plan: 73-year-old man with 5 days of and nausea and dry heaving and some vague crampy abdominal discomfort. He is hemodynamically stable and has a completely benign abdominal exam. Clinically he does not look sick at all though I understand he does not feel well preceding this. He certainly endorses feeling improvement after being rehydrated in the ED. He has a nonspecific leukocytosis with no shift. My clinical assessment is that he has a completely benign abdomen and no acute surgical condition. I reviewed his CT scan in careful detail. I do not see any free fluid or free air. I do notice a small collection of fluid in the right lower quadrant that to me looks to be mostly within the soft tissue and as best I can tell, underneath the peritoneal lining. This could be a postop seroma from his hernia repair for sure. It is certainly right next to the appendix but I agree with the radiology read that there is no signs of inflammation around the appendix itself. I had a detailed discussion with the patient at the bedside. I am not sure what the fluid collection represents but I am quite confident it does not represent perforated appendicitis considering his clinical presentation. I think it would be worthwhile to follow-up with either an ultrasound in the next couple of weeks or repeat CT scan in a month or so to better assess the fluid collection. The biggest reason I think this should be done is to make sure this does not represent an appendiceal neoplasm coming off the tip of his appendix. I certainly do not think that is the case. I do not have a previous CT scan to compare. In any event I counseled him that if anything worsens or if his pain becomes constant he can always come back and get reevaluated. I think it seems like he is overall getting better and after 5 days, if this was appendicitis, he would be very sick and toxic under almost all circumstances. I discussed with him in the ED provider and offered outpatient follow-up in our surgery clinic sometime next week just to make sure things are slowly improving for him. I think this is all going to completely resolve. Again, I do think repeat imaging down the road after this has resolved to assess the fluid collection is warranted for documenting purposes and to better understand its significance. History of Present Illness Narrative: 73-year-old man has been experiencing dry heaves and vomiting for about 5 days. There is crampy, lower, abdominal discomfort associated. He is describes it as coming and going. He says we have been having GI issues lately but denies that anyone else is acutely ill. He has never had intra-abdominal surgery but did have an anterior/open inguinal hernia repair on the right side a couple of years ago. At the bedside during this consultation he denies any ongoing pain at this moment. He has not had any fevers. He states that he mostly came in because his usual plan is to just wait things out and as he is getting older he thinks he should be more careful. PFSH All Active Problems (Updated 12/31/23 @ 15:15 by Gallo Kang MD) Abdominal fluid collection (Acute) Bladder wall thickening (Acute) Enlarged prostate (Acute) Abdominal discomfort (Acute) Vision changes (Acute) Skin lesions (Acute) Lightheadedness (Acute) HTN (hypertension) (Acute) Hyperlipidemia (Acute) Medical History Urinary urgency Right inguinal hernia Repaired 04/2020 Weight loss Dribbling urine Orthostatic dizziness Palpitations Had worked up with ZIO patch per Peritz 09/13/19 Per note:?The patient was in normal sinus rhythm for the majority of the recording. ?There were 9 episodes of supraventricular tachycardia with the longest lasting 19 beats. ?There were frequent (8.7%) isolated supraventricular ectopic beats. ?There were no episodes of ventricular tachycardia and rare (less than 1%) single ventricular ectopic beats. ?There were no episodes of atrial fibrillation no pauses greater than 3 seconds and no episodes of high degree heart block. ?Patient triggered events were associated with sinus rhythm as well as supraventricular ectopic beats. Surgical History History of tonsillectomy and adenoidectomy History of vasectomy Family History Mother , 89 Breast cancer Heart disease Father Stroke Sister No problems noted. Son Alcohol abuse now sober Depression Daughter No problems noted. Social History Smoking/Tobacco Use Status: Former Tobacco Use tobacco type: cigarettes Quit Date: 07/27/94 Tobacco: How many years used: 10 Second Hand Exposure: Yes Smoking risk assessment performed?: Yes Alcohol Intake: former Drug use: Never Substance use type: does not use Caregiver/Support person: No Household members: significant other Housing: house Communication Needs: None and Corrective Lenses Do you need help understanding health information?: Rarely Pets and animals: Yes Pets and animals: other Details: rabbits Sexually active: Yes Do you think of yourself as: straight/heterosexual Current gender identity: male What is your relationship status?: living with partner How often do you talk on the phone with friends or family?: once per week How often do you get together with friends or relatives?: once per week How often do you attend catholic or lutheran services?: decline to answer Do you belong to any clubs or organized social groups?: yes Panel score (0-1 are the most socially isolated patients): 2 What type of physical activity do you participate in: weight lifting and yoga Duration: < 15 minutes/day Frequency: 1-2 times per week Humera/Anabaptist: No preference Special humera needs: No Seatbelt use: always Drive intox or ride w/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 Chest: Nonlabored breathing Heart: Regular Abdomen: Soft, nondistended and nontender anywhere. There is no tenderness in the right lower quadrant. Results Last Vital Signs Temp 98.5 F 12/31/23 12:46 Pulse 79 12/31/23 12:46 Resp 14 12/31/23 12:46 BP 139/68 12/31/23 12:46 Pulse Ox 97 12/31/23 12:46 Labs 12/31/23 13:01 12/31/23 13:01 Labs: Laboratory Results - last 24 hr 12/31/23 12/31/23 13:01 13:50 WBC 13.53 H RBC 4.94 Hgb 16.1 Hct 45.1 MCV 91 MCH 32.6 MCHC 35.7 RDW 12.4 Plt Count 255 MPV 8.7 Immature Gran % 0.3 Neutrophils % 68.5 Lymphocytes % 21.5 Monocytes % 8.6 Eosinophils % 0.7 Basophils % 0.4 Nucleated RBC % 0.0 Absolute Neutrophils 9.27 H Absolute Lymphocytes 2.91 Absolute Monocytes 1.16 H Absolute Eosinophils 0.09 Absolute Basophils 0.05 Sodium 139 Potassium 4.2 Chloride 102 Carbon Dioxide 27.8 Anion Gap 9.2 BUN 18 Creatinine 1.3 Est GFR (CKD-EPI 2020) 58.01 Glucose 105 Calcium 9.7 Total Bilirubin 0.8 AST 20 ALT 36 Alkaline Phosphatase 58 Total Protein 7.9 Albumin 4.5 Lipase 59 Urine Color Yellow Urine Clarity Clear Urine pH 5.5 Ur Specific [place] >= 1.030 H Urine Protein 100 H Urine Ketones 40 H Urine Blood Trace-intact H Urine Nitrite Negative Urine Bilirubin Negative Urine Urobilinogen 0.2 Ur Leukocyte Esterase Negative Urine RBC 0-2 Urine WBC 0-2 Ur Epithelial Cells Rare Urine Crystals Negative Urine Bacteria Negative Urine Casts Negative Urine Mucus Moderate Ur Culture Indicated? No Urine Glucose Negative
[2023-12-31 15:17] VITALS: BP 156/77; PULSE 69; RESP 18; O2SAT 99
== END 2023-12-31 15:25 | disposition home or self-care (01) ==
PROVIDERS: Emergency Provider Student in an Organized Health Care Education/Training Program; PCP Nurse Practitioner Family
DX: R18.8 Other ascites (principal); R10.30 Lower abdominal pain, unspecified; R11.2 Nausea with vomiting, unspecified; N32.89 Other specified disorders of bladder; N40.0 Benign prostatic hyperplasia without lower urinary tract symptoms
CPT/HCPCS: 00123; 80053; 83690; 87635; 96360; 99283; 99285; 74177; 81003; 81015; 85025

== ENCOUNTER 2024-01-02 17:44 | Emergency (ER) | payer MEDICARE, SELFPAY ==
[2024-01-02 17:47] VITALS: BP 204/91; PULSE 83; RESP 18; TEMP 36.8; O2SAT 97
--- NOTE | 2024-01-02 18:07 | ED.GENADUL_ITS ---
Discharge Plan Disposition Patient Disposition: Home Condition: Stable Discharge Details Clinical Impression: Back pain Primary Care Provider: Siomara Mckeon ED Provider: Patrick Nelson Home Meds and New Rx's Prescriptions: Continued latanoprost 0.005 % drops 1 drp ophthalmic (eye) QPM ibuprofen 600 mg tablet 600 mg PO Q6H PRN (Reason: fever or pain) Qty: 30 0RF lisinopril 30 mg tablet 30 mg PO DAILY Qty: 90 1RF amlodipine 5 mg tablet 5 mg PO DAILY Qty: 90 3RF ondansetron 4 mg tablet,disintegrating 4 mg PO Q8H PRN (Reason: nausea and vomiting) Qty: 10 0RF multivitamin Tablet 1 tab PO DAILY acetaminophen [Tylenol] 325 mg capsule 650 mg PO Q6H PRN (Reason: fever or pain) Qty: 30 0RF Discharge Instructions Additional Instructions: You can continue to use [id number] pain medications including lidocaine patches Follow-up with your primary care provider if symptoms continue this week If you feel more ill or have new symptoms such as high fevers or severe abdominal pain return to the emergency department for reevaluation HPI General Mode of arrival: ambulatory . Date/Time Provider Initiated Documentation: 01/02/24 17:47 . Limitations to Documentation: no limitations . Information obtained by: patient . History of Present Illness 73 year old M presents to the emergency department with the chief complaint of Nausea and vomiting, described as moderate, Patient started experiencing this day(s) (6) and it has been intermittent. No relieving factors improve symptom(s), No exacerbating factors reported . Patient notes denies chest pain, fever/chills and shortness of breath. Related Data Home Medications Medication Instructions Recorded Confirmed multivitamin 1 tab PO DAILY 05/21/20 12/31/23 acetaminophen 325 mg capsule 650 mg (2 x 325 mg) PO Q6H PRN 05/23/20 12/31/23 (Tylenol) fever or pain #30 caps ibuprofen 600 mg tablet 600 mg PO Q6H PRN fever or pain 06/02/20 12/31/23 #30 tabs latanoprost 0.005 % eye drops 1 drp ophthalmic (eye) QPM 01/28/22 12/31/23 lisinopril 30 mg tablet 30 mg PO DAILY #90 tabs 11/12/23 12/31/23 amlodipine 5 mg tablet 5 mg PO DAILY #90 tabs 11/24/23 12/31/23 ondansetron 4 mg disintegrating 4 mg PO Q8H PRN nausea and 12/30/23 12/31/23 tablet vomiting #10 tabs Previous Rx's Medication Instructions Recorded acetaminophen 325 mg capsule 650 mg (2 x 325 mg) PO Q6H PRN 05/23/20 (Tylenol) fever or pain #30 caps ibuprofen 600 mg tablet 600 mg PO Q6H PRN fever or pain 06/02/20 #30 tabs lisinopril 30 mg tablet 30 mg PO DAILY #90 tabs 11/12/23 amlodipine 5 mg tablet 5 mg PO DAILY #90 tabs 11/24/23 ondansetron 4 mg disintegrating 4 mg PO Q8H PRN nausea and 12/30/23 tablet vomiting #10 tabs Allergies Allergy/AdvReac Type Severity Reaction Status Date / Time No Known Allergies Allergy Verified 01/02/24 17:52 General Stated Complaint: Nausea/Vomit/Diar RYAN: 3 Review of Systems All systems reviewed & are unremarkable except as noted in HPI and below Constitutional Constitutional: Denies chills, Denies fever(s) and Denies weakness Cardiovascular Cardiovascular: Denies chest pain and Denies dyspnea Respiratory Respiratory: Denies cough and Denies dyspnea Gastrointestinal Gastrointestinal: Reports nausea and Reports vomiting Genitourinary Genitourinary: Denies dysuria Musculoskeletal Musculoskeletal: Denies joint swelling Integumentary/Breasts Skin/Breast: Denies rash Neurologic Neurologic: Denies weakness Exam Const General: no acute distress Orientation: alert [facility] Head: normal to inspection Ears: external ears normal General nose exam: external nose normal Mouth: moist mucous membranes Eyes General: appearance normal, both eyes and all related structures Neck Neck: normal visual inspection Resp Effort & Inspection: normal respiratory effort and able to speak in complete sentences Cardio Rate: regular rate GI Palpation: soft and nontender Auscultation: hyperactive bowel sounds Skin General skin exam: no rashes or lesions noted Neuro General: patient alert and patient oriented x3 Extrem General: normal to inspection Psych Mental Status: mental status grossly normal Course Vital Signs Vital signs: Vital Signs Temperature 36.8 C 01/02/24 17:47 Pulse 83 01/02/24 17:47 Respiratory Rate 18 01/02/24 17:47 Blood Pressure 204/91 H 01/02/24 17:47 Pulse Oximetry 97 01/02/24 17:47 Temperature 36.8 C 01/02/24 17:47 Pulse 83 01/02/24 17:47 Respiratory Rate 18 01/02/24 17:47 Blood Pressure 204/91 H 01/02/24 17:47 Pulse Oximetry 97 01/02/24 17:47 Medical Decision Making 73-year-old male with a history of hypertension, who comes in with 6 days of intermittent nausea vomiting. He has been taking Zofran with some relief. He was seen 2 days ago in the ER and had a CT which did not show anything acute, had a nonspecific fluid collection near the appendix, had a surgical consultation who felt like this was most likely related to his prior inguinal hernia surgery and not related to his appendix. Patient states that since discharge he has been still having intermittent episodes where he has dry heaving. Denies any fevers, chest pain, difficulty breathing, when he is vomiting he has some epigastric discomfort but when he is not vomiting or having dry heaves he does not have any abdominal pain. He is alert and speaking clearly in no distress on arrival. His abdomen is soft and nontender, he has hyperactive bowel sounds. Unclear etiology of her symptoms but given reassuring CT the other day and also lack of abdominal tenderness today doubt entities such as small bowel obstruction or appendicitis. Will treat symptoms with fluids and try Compazine, will also check a CBC CMP and lipase and reassess. Labs show mildly elevated lipase, has no abdominal tenderness at all. Bactrim can sometimes cause increase in lipase suspect this, he does not drink significant amounts of alcohol. No evidence of UTI, rest of labs reassuring. Patient feels significantly better and requesting discharge, feel this is reasonable given stable exam and reassuring workup. He will follow-up with his primary care provider and return precautions given Differential Diagnosis Differential Diagnosis: Food illness, gastroenteritis, cyclic vomiting Medical Records Medical records reviewed: Yes I reviewed the patient's medical records. Lab Data Lab results reviewed: Yes I reviewed the patient's lab results. Quality:SDOH Health Related Social Needs: No Data to Display PFSH All Active Problems (Updated 01/02/24 @ 18:23 by Patrick Nelson MD) Back pain (Acute) Abdominal fluid collection (Acute) Bladder wall thickening (Acute) Enlarged prostate (Acute) Abdominal discomfort (Acute) Vision changes (Acute) Skin lesions (Acute) Lightheadedness (Acute) HTN (hypertension) (Acute) Hyperlipidemia (Acute) Medical History Urinary urgency Right inguinal hernia Repaired 04/2020 Weight loss Dribbling urine Orthostatic dizziness Palpitations Had worked up with ZIO patch per Peritz 09/13/19 Per note:?The patient was in normal sinus rhythm for the majority of the recording. ?There were 9 episodes of supraventricular tachycardia with the longest lasting 19 beats. ?There were frequent (8.7%) isolated supraventricular ectopic beats. ?There were no episodes of ventricular tachycardia and rare (less than 1%) single ventricular ectopic beats. ?There were no episodes of atrial fibrillation no pauses greater than 3 seconds and no episodes of high degree heart block. ?Patient triggered events were associated with sinus rhythm as well as supraventricular ectopic beats. Surgical History History of tonsillectomy and adenoidectomy History of vasectomy Family History Mother , 89 Breast cancer Heart disease Father Stroke Sister No problems noted. Son Alcohol abuse now sober Depression Daughter No problems noted. Social History Smoking/Tobacco Use Status: Former Tobacco Use tobacco type: cigarettes Quit Date: 07/27/94 Tobacco: How many years used: 10 Second Hand Exposure: Yes Smoking risk assessment performed?: Yes Alcohol Intake: former Drug use: Never Substance use type: does not use Caregiver/Support person: No Household members: significant other Housing: house Communication Needs: None and Corrective Lenses Do you need help understanding health information?: Rarely Pets and animals: Yes Pets and animals: other Details: rabbits Sexually active: Yes Do you think of yourself as: straight/heterosexual Current gender identity: male What is your relationship status?: living with partner How often do you talk on the phone with friends or family?: once per week How often do you get together with friends or relatives?: once per week How often do you attend worship or church services?: decline to answer Do you belong to any clubs or organized social groups?: yes Panel score (0-1 are the most socially isolated patients): 2 What type of physical activity do you participate in: weight lifting and yoga Duration: < 15 minutes/day Frequency: 1-2 times per week Humera/Catholic: No preference Special humera needs: No Seatbelt use: always 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
[2024-01-02] MEDS: Normal Saline 1,000 ML 1000 ML IV (18:25)
[2024-01-02] MEDS: Prochlorperazine 10 MG/2 ML VIAL IVP (18:25)
[2024-01-02 18:27] LABS: Abs Immature Grans 0.03 10^3/uL (0.0-0.06); Absolute Basophil Count 0.06 10^3/uL (0.0-0.2); Absolute Eosinophil Count 0.07 10^3/uL (0.0-0.7); Absolute Lymphocyte Count 1.62 10^3/uL (1.2-3.4); Absolute Monocyte Count 0.79 10^3/uL (0.1-0.8); Absolute Neutrophil Count 8.45 10^3/uL (1.2-6.7); Basophils % 0.5 %; Eosinophils % 0.6 %; HCT 45.2 % (40.0-50.0); HGB 15.8 g/dL (13.5-17.5); Immature Grans % 0.3 %; Lymphocytes % 14.7 %; MCH 32.2 pg (27.0-33.0); MCV 92 fL (80-95); MPV 8.9 fL (8.0-11.0); Monocytes % 7.2 %; Neutrophils % 76.7 %; Platelet Count 249 10^3/uL (130-400); RBC 4.91 10^6/uL (4.36-5.78); RDW 12.2 % (11.8-14.1); RDW-SD 41.1 fL; WBC 11.02 10^3/uL (4.4-10.8)
[2024-01-02 18:44] LABS: ALT 32 U/L (16-63); AST 23 U/L (15-37); Albumin 4.2 g/dL (3.4-5.0); Alkaline Phosphatase 56 U/L (46-116); Anion Gap 12.2 mmol/L (3-11); BUN 19 mg/dL (7-18); Bilirubin, Total 0.9 mg/dL (0.2-1.0); CO2 26.8 mmol/L (21.0-32.0); CREATININE 1.2 mg/dL (0.70-1.30); Calcium 9.6 mg/dL (8.5-10.1); Chloride 101 mmol/L (98-107); Estimated GFR 63.85 (mL/min/1.73m2); Glucose 107 mg/dL (74-106); Lipase 26 U/L (16-77); Magnesium 2.1 mg/dL (1.8-2.4); Potassium 4.2 mmol/L (3.5-5.1); Sodium 140 mmol/L (136-145); Total Protein 7.7 g/dL (6.4-8.2)
--- NOTE | 2024-01-02 18:47 | W.ED.GENAD ---
Discharge Plan Disposition Patient Disposition: Home Condition: Stable Discharge Details Clinical Impression: Nausea & vomiting Primary Care Provider: Siomara Mckeon ED Provider: Patrick Nelson Home Meds and New Rx's Prescriptions: New prochlorperazine maleate [Compazine] 10 mg tablet 10 mg PO TID PRN (Reason: nausea and vomiting) Qty: 30 0RF Continued latanoprost 0.005 % drops 1 drp ophthalmic (eye) QPM ibuprofen 600 mg tablet 600 mg PO Q6H PRN (Reason: fever or pain) Qty: 30 0RF lisinopril 30 mg tablet 30 mg PO DAILY Qty: 90 1RF amlodipine 5 mg tablet 5 mg PO DAILY Qty: 90 3RF multivitamin Tablet 1 tab PO DAILY acetaminophen [Tylenol] 325 mg capsule 650 mg PO Q6H PRN (Reason: fever or pain) Qty: 30 0RF Discontinued ondansetron 4 mg tablet,disintegrating 4 mg PO Q8H PRN (Reason: nausea and vomiting) Qty: 10 0RF Discharge Instructions Additional Instructions: Your blood work did not show any concerning findings at this time Follow-up with your primary care provider this week If you feel more ill, high fevers or severe abdominal pain return to the emergency department for reevaluation HPI General Mode of arrival: ambulatory. Date/Time Provider Initiated Documentation: 01/02/24 17:47. Limitations to Documentation: no limitations. Information obtained by: patient. History of Present Illness 73 year old M presents to the emergency department with the chief complaint of Nausea vomiting, described as moderate, Patient started experiencing this day(s) (6) and it has been intermittent. No relieving factors improve symptom(s), No exacerbating factors reported . Patient notes denies chest pain, fever/chills and shortness of breath. Related Data Home Medications Medication Instructions Recorded Confirmed multivitamin 1 tab PO DAILY 05/21/20 12/31/23 acetaminophen 325 mg capsule 650 mg (2 x 325 mg) PO Q6H PRN 05/23/20 12/31/23 (Tylenol) fever or pain #30 caps ibuprofen 600 mg tablet 600 mg PO Q6H PRN fever or pain 06/02/20 12/31/23 #30 tabs latanoprost 0.005 % eye drops 1 drp ophthalmic (eye) QPM 01/28/22 12/31/23 lisinopril 30 mg tablet 30 mg PO DAILY #90 tabs 11/12/23 12/31/23 amlodipine 5 mg tablet 5 mg PO DAILY #90 tabs 11/24/23 12/31/23 prochlorperazine maleate 10 mg 10 mg PO TID PRN nausea and 01/02/24 tablet (Compazine) vomiting #30 tabs Previous Rx's Medication Instructions Recorded acetaminophen 325 mg capsule 650 mg (2 x 325 mg) PO Q6H PRN 05/23/20 (Tylenol) fever or pain #30 caps ibuprofen 600 mg tablet 600 mg PO Q6H PRN fever or pain 06/02/20 #30 tabs lisinopril 30 mg tablet 30 mg PO DAILY #90 tabs 11/12/23 amlodipine 5 mg tablet 5 mg PO DAILY #90 tabs 11/24/23 prochlorperazine maleate 10 mg 10 mg PO TID PRN nausea and 01/02/24 tablet (Compazine) vomiting #30 tabs Allergies Allergy/AdvReac Type Severity Reaction Status Date / Time No Known Allergies Allergy Verified 01/02/24 17:52 General Stated Complaint: Nausea/Vomit/Diar RYAN: 3 Review of Systems All systems reviewed & are unremarkable except as noted in HPI and below Constitutional Constitutional: Denies chills, Denies fever(s) and Denies weakness Cardiovascular Cardiovascular: Denies chest pain and Denies dyspnea Respiratory Respiratory: Denies cough and Denies dyspnea Gastrointestinal Gastrointestinal: Reports nausea and Reports vomiting Musculoskeletal Musculoskeletal: Denies joint swelling Neurologic Neurologic: Denies weakness Exam Const General: no acute distress Orientation: alert [facility] Head: normal to inspection Ears: external ears normal General nose exam: external nose normal Mouth: moist mucous membranes Eyes General: appearance normal, both eyes and all related structures Neck Neck: normal visual inspection Resp Effort & Inspection: normal respiratory effort and able to speak in complete sentences Cardio Rate: regular rate GI Palpation: soft and nontender Skin General skin exam: no rashes or lesions noted Neuro General: patient alert and patient oriented x3 Extrem General: normal to inspection Psych Mental Status: mental status grossly normal Course Vital Signs Vital signs: Vital Signs Temperature 36.8 C 01/02/24 17:47 Pulse 83 01/02/24 17:47 Respiratory Rate 18 01/02/24 17:47 Blood Pressure 204/91 H 01/02/24 17:47 Pulse Oximetry 97 01/02/24 17:47 Temperature 36.8 C 01/02/24 17:47 Pulse 83 01/02/24 17:47 Respiratory Rate 18 01/02/24 17:47 Blood Pressure 204/91 H 01/02/24 17:47 Pulse Oximetry 97 01/02/24 17:47 Lab/Test Results Lab/Test Results: Laboratory Tests Range/Units 01/02/24 01/02/24 18:06 18:15 WBC (4.4-10.8) 10^3/uL 11.02 H RBC (4.36-5.78) 10^6/uL 4.91 Hgb (13.5-17.5) g/dL 15.8 Hct (40.0-50.0) % 45.2 MCV (80-95) fL 92 MCH (27.0-33.0) pg 32.2 MCHC (32.0-36.0) % 35.0 RDW (11.8-14.1) % 12.2 Plt Count (130-400) 10^3/uL 249 MPV (8.0-11.0) fL 8.9 Immature Gran % % 0.3 Neutrophils % % 76.7 Lymphocytes % % 14.7 Monocytes % % 7.2 Eosinophils % % 0.6 Basophils % % 0.5 Nucleated RBC % (0.0-0.3) % 0.0 Absolute Neutrophils (1.2-6.7) 10^3/uL 8.45 H Absolute Lymphocytes (1.2-3.4) 10^3/uL 1.62 Absolute Monocytes (0.1-0.8) 10^3/uL 0.79 Absolute Eosinophils (0.0-0.7) 10^3/uL 0.07 Absolute Basophils (0.0-0.2) 10^3/uL 0.06 PT Cancelled INR Cancelled APTT Cancelled Sodium (136-145) mmol/L 140 Potassium (3.5-5.1) mmol/L 4.2 Chloride (98-107) mmol/L 101 Carbon Dioxide (21.0-32.0) mmol/L 26.8 Anion Gap (3-11) mmol/L 12.2 H BUN (7-18) mg/dL 19 H Creatinine (0.70-1.30) mg/dL 1.2 Est GFR (CKD-EPI 2020) (mL/min/1.73m2) 63.85 Glucose (74-106) mg/dL 107 H Calcium (8.5-10.1) mg/dL 9.6 Magnesium (1.8-2.4) mg/dL 2.1 Total Bilirubin (0.2-1.0) mg/dL 0.9 AST (15-37) U/L 23 ALT (16-63) U/L 32 Alkaline Phosphatase (46-116) U/L 56 Total Protein (6.4-8.2) g/dL 7.7 Albumin (3.4-5.0) g/dL 4.2 Lipase (16-77) U/L 26 Medical Decision Making 73-year-old male with a history of hypertension, who comes in with 6 days of intermittent nausea vomiting. He has been taking Zofran with some relief. He was seen 2 days ago in the ER and had a CT which did not show anything acute, had a nonspecific fluid collection near the appendix, had a surgical consultation who felt like this was most likely related to his prior inguinal hernia surgery and not related to his appendix. Patient states that since discharge he has been still having intermittent episodes where he has dry heaving. Denies any fevers, chest pain, difficulty breathing, when he is vomiting he has some epigastric discomfort but when he is not vomiting or having dry heaves he does not have any abdominal pain. He is alert and speaking clearly in no distress on arrival. His abdomen is soft and nontender, he has hyperactive bowel sounds. Unclear etiology of her symptoms but given reassuring CT the other day and also lack of abdominal tenderness today doubt entities such as small bowel obstruction or appendicitis. Will treat symptoms with fluids and try Compazine, will also check a CBC CMP and lipase and reassess. Labs show no significant findings, patient feeling better. He does state that when he had episode like this in the past omeprazole has helped so we will order him a dose of this. Will provide him Compazine to use as needed, he has no abdominal tenderness on exam. Feel he stable for discharge and can follow-up with his PCP, return precautions given Differential Diagnosis Differential Diagnosis: foodillness, gastroenteritis Lab Data Lab results reviewed: Yes I reviewed the patient's lab results. Quality:[facility] Health Related Social Needs: No Data to Display PFSH All Active Problems (Updated 01/02/24 @ 20:36 by Patrick Nelson MD) Nausea & vomiting (Acute) Abdominal fluid collection (Acute) Bladder wall thickening (Acute) Enlarged prostate (Acute) Abdominal discomfort (Acute) Vision changes (Acute) Skin lesions (Acute) Lightheadedness (Acute) HTN (hypertension) (Acute) Hyperlipidemia (Acute) Medical History Urinary urgency Right inguinal hernia Repaired 04/2020 Weight loss Dribbling urine Orthostatic dizziness Palpitations Had worked up with ZIO patch per Peritz 09/13/19 Per note:?The patient was in normal sinus rhythm for the majority of the recording. ?There were 9 episodes of supraventricular tachycardia with the longest lasting 19 beats. ?There were frequent (8.7%) isolated supraventricular ectopic beats. ?There were no episodes of ventricular tachycardia and rare (less than 1%) single ventricular ectopic beats. ?There were no episodes of atrial fibrillation no pauses greater than 3 seconds and no episodes of high degree heart block. ?Patient triggered events were associated with sinus rhythm as well as supraventricular ectopic beats. Surgical History History of tonsillectomy and adenoidectomy History of vasectomy Family History Mother , 89 Breast cancer Heart disease Father Stroke Sister No problems noted. Son Alcohol abuse now sober Depression Daughter No problems noted. Social History Smoking/Tobacco Use Status: Former Tobacco Use tobacco type: cigarettes Quit Date: 07/27/94 Tobacco: How many years used: 10 Second Hand Exposure: Yes Smoking risk assessment performed?: Yes Alcohol Intake: former Drug use: Never Substance use type: does not use Caregiver/Support person: No Household members: significant other Housing: house Communication Needs: None and Corrective Lenses Do you need help understanding health information?: Rarely Pets and animals: Yes Pets and animals: other Details: rabbits Sexually active: Yes Do you think of yourself as: straight/heterosexual Current gender identity: male What is your relationship status?: living with partner How often do you talk on the phone with friends or family?: once per week How often do you get together with friends or relatives?: once per week How often do you attend episcopal or caodaism services?: decline to answer Do you belong to any clubs or organized social groups?: yes Panel score (0-1 are the most socially isolated patients): 2 What type of physical activity do you participate in: weight lifting and yoga Duration: < 15 minutes/day Frequency: 1-2 times per week Humera/Cheondoism: No preference Special humera needs: No Seatbelt use: always 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
[2024-01-02 19:52] LABS: Bilirubin Small (Negative); Blood Negative (Negative); Clarity Sl Cloudy (Clear); Glucose Negative (Negative); Ketones 80 mg/dL (Negative); Leukocyte Esterase Negative (Negative); Nitrite Negative (Negative); Specific Gravity >= 1.030 (1.005-1.025); pH 5.5 (5-8)
[2024-01-02 19:59] LABS: Bacteria Rare HPF (Negative); C & S Indicated? No; Casts Negative LPF (Negative); Crystals Negative HPF (Negative); Epithelial Cells Negative HPF (Negative); Mucus Heavy (Negative); RBC 0-2 HPF (0-2)
[2024-01-02 20:45] VITALS: BP 174/75; PULSE 83; RESP 14; O2SAT 99
[2024-01-02] MEDS: Prochlorperazine 10 MG TAB PO (21:03)
[2024-01-02] MEDS: Omeprazole 20 MG CAPCR PO (21:03)
[2024-01-02 21:04] VITALS: BP 174/75; PULSE 83; RESP 14; TEMP 36.8; O2SAT 99
[2024-01-02 21:07] VITALS: BP 174/75; PULSE 83; RESP 14; O2SAT 99
== END 2024-01-02 21:09 | disposition home or self-care (01) ==
PROVIDERS: Emergency Provider Emergency Medicine; PCP Nurse Practitioner Family
DX: R11.2 Nausea with vomiting, unspecified (principal); I10 Essential (primary) hypertension; E78.5 Hyperlipidemia, unspecified
CPT/HCPCS: 36415; 80053; 83690; 96361; 96374; 99284; 81003; 81015; 83735; 85025; 85610; 85730; J0780

== ENCOUNTER 2024-05-03 09:58 | Inpatient (IN) | payer MEDICARE, SELFPAY ==
[2024-05-03] VITALS (58 sets, daily range): BP systolic 124–211; BP diastolic 54–87; PULSE 61–115; RESP 12–30; TEMP 36–37; O2SAT 94–100; BMI 23.0
[2024-05-03 10:45] LABS: Abs Immature Grans 0.03 10^3/uL (0.0-0.06); Absolute Basophil Count 0.04 10^3/uL (0.0-0.2); Absolute Eosinophil Count 0.07 10^3/uL (0.0-0.7); Absolute Lymphocyte Count 1.75 10^3/uL (1.2-3.4); Absolute Monocyte Count 0.71 10^3/uL (0.1-0.8); Basophils % 0.4 %; Eosinophils % 0.7 %; HCT 37.7 % (40.0-50.0); HGB 12.6 g/dL (13.5-17.5); Immature Grans % 0.3 %; Lactate 1.5 mmol/L (0.6-1.4); Lymphocytes % 16.8 %; MCH 30.7 pg (27.0-33.0); MCHC 33.4 % (32.0-36.0); MCV 92 fL (80-95); MPV 8.7 fL (8.0-11.0); Monocytes % 6.8 %; Platelet Count 372 10^3/uL (130-400); RDW 12.3 % (11.8-14.1); RDW-SD 41.3 fL
--- NOTE | 2024-05-03 10:46 | ED.GENADUL_ITS ---
Discharge Plan Disposition Patient Disposition: Admit to [facility] Condition: Stable Discharge Details Clinical Impression: Upper GI bleeding, Duodenitis Attending Provider: Mariana Perez Primary Care Provider: Siomara Mckeon ED Provider: Ben Alston Discharge Data Discharge Date/Time-TO BE ENTERED AT DEPARTURE: 05/03/24 15:33 HPI General Date/Time Provider Initiated Documentation: 05/03/24 10:00 . HPI Narrative: 73 year-old male presents to ED today by POV/ambulating with a chief complaint of black, tarry stools, a burning sensation in his stomach, nausea and vomiting with any oral intake, concern for GI bleeding with onset 4-5 days ago, had a more minor episode of this in December that seemed to resolve and he never pursued endoscopy. Quality described as burning sensation that travels around his stomach, more focal on the R side, no radiation to coffee-ground emesis, or hematemesis, denies chest pain, denies fever, denies cough/SOB, states normal urinary habits- endorses worsening dizziness over the past few days. Severity is described as severe/10. Palliating factors include Mylanta with some relief. Provoking factors include nothing specific- denies severe longstanding indigestion. Events leading up to the incident/Associated Symptoms: Patient endorses history of R inguinal hernia repair, no other abdominal procedures. Patient not anticoagulated. Related Data Home Medications ?Medication ?Instructions ?Recorded ?Confirmed multivitamin 1 tab PO DAILY 05/21/20 05/03/24 acetaminophen 325 mg capsule 650 mg (2 x 325 mg) PO Q6H PRN 05/23/20 05/03/24 (Tylenol) fever or pain #30 caps ibuprofen 600 mg tablet 600 mg PO Q6H PRN fever or pain 06/02/20 05/03/24 #30 tabs latanoprost 0.005 % eye drops 1 drp ophthalmic (eye) QPM 01/28/22 05/03/24 prochlorperazine maleate 10 mg 10 mg PO TID PRN nausea and 01/02/24 05/03/24 tablet (Compazine) vomiting #30 tabs amlodipine 5 mg tablet 5 mg PO DAILY #90 tabs 03/07/24 05/03/24 lisinopril 30 mg tablet 30 mg PO DAILY #90 tabs 03/07/24 05/03/24 Previous Rx's ?Medication ?Instructions ?Recorded acetaminophen 325 mg capsule 650 mg (2 x 325 mg) PO Q6H PRN 05/23/20 (Tylenol) fever or pain #30 caps ibuprofen 600 mg tablet 600 mg PO Q6H PRN fever or pain 06/02/20 #30 tabs prochlorperazine maleate 10 mg 10 mg PO TID PRN nausea and 01/02/24 tablet (Compazine) vomiting #30 tabs amlodipine 5 mg tablet 5 mg PO DAILY #90 tabs 03/07/24 lisinopril 30 mg tablet 30 mg PO DAILY #90 tabs 03/07/24 Allergies Allergy/AdvReac Type Severity Reaction Status Date / Time No Known Allergies Allergy Verified 05/03/24 10:12 General Stated Complaint: GI Bleed RYAN: 3 Review of Systems All systems reviewed & are unremarkable except as noted in HPI and below Exam Narrative Exam Narrative: GENERAL APPEARANCE: Well-nourished, non-toxic, awake and alert, atraumatic, no acute distress. SKIN: Warm, pink, dry, intact, without rashes/lesions/ulcerations. HEAD: Normocephalic, atraumatic, normal hair distribution for gender/age. EYES: Normal conjunctiva, no exudates on lids/lashes. ENT: Nares patent, no circumoral cyanosis, no facial swelling NECK: Supple, trachea midline, painless cervical ROM. LUNGS/CHEST: Lungs CTA bilaterally- no rhonchi/rales/wheezes diffusely, non- labored respirations, normal A/P diameter, symmetrical expansion, no chest wall deformity HEART (CV/PV): Regular rate and rhythm without murmur, no peripheral edema, no JVD. ABDOMEN: Normoactive bowel sounds, soft, non-distended, no guarding, mild umbilical and right mid abdominal tenderness without rebound tenderness, negative Mccollum sign, no McBurney's point tenderness, no Rovsing. MSK: Normal ROM, no swelling/deformity to bilateral UEs or LEs, moving all extremities without weakness, no cyanosis, spine midline without tenderness, normal curvature. NEURO: Mental Status AAOx4 - alert to person, place, time, events No facial droop, no forehead involvement. Motor: No focal weakness - strength 5/5 in bilateral UEs and LEs, proximal and distal, symmetric. Sensory: sensation intact to light touch globally. Gait normal: patient ambulated without ataxia into ED room. PSYCH: euthymic, cooperative, pleasant, appropriate speech Course Vital Signs Vital signs: Vital Signs Temperature 37.0 C 05/03/24 10:03 Pulse 74 05/03/24 10:03 Respiratory Rate 12 05/03/24 10:03 Blood Pressure 185/75 H 05/03/24 10:03 Pulse Oximetry 98 05/03/24 10:03 Temperature 37.0 C 05/03/24 10:03 Temperature Source Oral 05/03/24 10:03 Pulse 74 05/03/24 10:03 Respiratory Rate 12 05/03/24 10:03 Respiratory Effort Normal, Non-Labored 05/03/24 10:10 Blood Pressure 185/75 H 05/03/24 10:03 Blood Pressure Position Sitting 05/03/24 10:03 Pulse Oximetry 98 05/03/24 10:03 Oxygen Delivery Method Room Air 05/03/24 10:03 Oxygen Flow Rate 0 05/03/24 10:03 Pain Level 0 05/03/24 10:03 Lab/Test Results Lab/Test Results: Laboratory Tests Range/Units 05/03/24 10:35 WBC (4.4-10.8) 10^3/uL 10.40 RBC (4.36-5.78) 10^6/uL 4.10 L Hgb (13.5-17.5) g/dL 12.6 L Hct (40.0-50.0) % 37.7 L MCV (80-95) fL 92 MCH (27.0-33.0) pg 30.7 MCHC (32.0-36.0) % 33.4 RDW (11.8-14.1) % 12.3 Plt Count (130-400) 10^3/uL 372 MPV (8.0-11.0) fL 8.7 Immature Gran % % 0.3 Neutrophils % % 75.0 Lymphocytes % % 16.8 Monocytes % % 6.8 Eosinophils % % 0.7 Basophils % % 0.4 Nucleated RBC % (0.0-0.3) % 0.0 Absolute Neutrophils (1.2-6.7) 10^3/uL 7.80 H Absolute Lymphocytes (1.2-3.4) 10^3/uL 1.75 Absolute Monocytes (0.1-0.8) 10^3/uL 0.71 Absolute Eosinophils (0.0-0.7) 10^3/uL 0.07 Absolute Basophils (0.0-0.2) 10^3/uL 0.04 VBG Lactate (0.6-1.4) mmol/L 1.5 H Medical Decision Making This dictation utilizes [id number] dictation software and may contain unedited grammatical errors. 73 year-old male presents to ED today by POV/ambulating with a chief complaint of black, tarry stools, a burning sensation in his stomach, nausea and vomiting with any oral intake, concern for GI bleeding with onset 4-5 days ago, had a more minor episode of this in December that seemed to resolve and he never pursued endoscopy. Quality described as burning sensation that travels around his stomach, more focal on the R side, no radiation to coffee-ground emesis, or hematemesis, denies chest pain, denies fever, denies cough/SOB, states normal urinary habits- endorses worsening dizziness over the past few days. Severity is described as severe/10. Palliating factors include Mylanta with some relief. Provoking factors include nothing specific- denies severe longstanding indigestion. Events leading up to the incident/Associated Symptoms: Patient endorses history of R inguinal hernia repair, no other abdominal procedures. Patients' medical history: Right renal hernia, urinary urgency, orthostatic dizziness, hypertension, hyperlipidemia. Family and social history: Noncontributory, lives at home with his , denies excessive EtOH use. Pertinent exam findings / vital signs include normoactive bowel sounds, stable vitals, benign cardiopulmonary exam, normoactive bowel sounds, mild R abdominal tenderness/umbilical tenderness without rebound tenderness, no Rovsing's, negative Mccollum's sign. Differential / pathologies of concern include GI bleeding, gastritis/duodenitis, less likely appendicitis, unlikely SBO or volvulus, consider incarcerated hernia, less likely ACS, consider neoplastic disease Diagnostic studies of: -CBC, BMP, lactate, lipase, liver panel, magnesium, PT/PTT, type and screen, CTA ABD/pelvis with contrast -CBC shows anemia of 12.6 without leukocytosis, repeat H&H after 1 L of fluid shows a drop to 10.9 -CMP shows no actionable abnormality -Liver panel shows no biliary obstructive pathology -Lipase within normal limits -Magnesium within normal limits -Coagulation studies within normal limits -Lactate mildly elevated at 1.5 suggesting GI bleeding -Type and screen shows a positive -CTA of the abdomen and pelvis shows circumferential mucosal thickening and edema around the duodenum, likely the source of bleeding consider neoplastic process as the patient does not have significant risk factors for NSAID overuse or EtOH intake -Added EKG for preoperative clearance Interventions of: -1L IVF NS, 4mg IV Zofran, 40mg IV Protonix. ED Course/Assessment/Plan: Patient with 5 days onset of lower abdominal burning and black tarry stools with nausea and vomiting with any oral intake presents for concern for GI bleeding, and a significant drop in his hemoglobin after IV fluids warranting consult with surgery for more urgent endoscopy, he has suspicious findings for circumferential mucosal thickening and edema on CTA of his abdomen/pelvis, I spoke with Dr. Perez who will get him into the endoscopy suite today. Last oral intake dinnertime last night of applesauce which caused vomiting, has vomited here in ED from sip of water. Disposition of Upper GI Bleeding, Duodenitis. Patient verbalized understanding of the plan and return to ED criteria and engaged in shared decision making. Medical Records Medical records reviewed: Yes I reviewed the patient's medical records. Imaging Data Radiologic Study: Attestation: I personally reviewed and interpreted this imaging study as follows: Imaging: CT Scan Radiologist's impression: EXAM: CT ABDOMEN PELVIS CTA CLINICAL HISTORY: black tarry stools, vomiting, GI bleed. TECHNIQUE: Imaging Protocol: Axial computed tomography images with coronal and sagittal reformatted images were created and reviewed CONTRAST MATERIAL: Intravenous: Omnipaque 350 Contrast volume:70 mL Oral: None COMPARISON: CT CT ABDOMEN PELVIS W from 12/31/2023 FINDINGS: ABDOMEN: CTA and BOWEL: The abdominal aorta exhibits moderate atherosclerotic change but there is no evidence of abdominal aortic aneurysm nor dissection.There is mild fusiform dilatation the distal right common iliac artery with maximum external diameter 1.5 cm. No dissection. No significant stenosis at the origin of superior mesenteric artery. No evidence of embolus within this vessel nor significant atherosclerotic narrowing of this vessel. The inferior mesenteric artery is patent. Celiac artery patent. Some calcified plaque is noted in the ostium of the right renal artery. There are no ischemic appearing smaller large bowel loops and there are no large meandering mesenteric vessels. No evidence of colitis pattern and no significant diverticular disease in the colon. No evidence of bowel obstruction. There is abnormal circumferential mucosal thickening-edema in the wall of the pylorus and proximal 2/3 of the duodenal C-loop. Distal most duodenum appears unremarkable as do proximal and more distal small bowel loops. There is no free air around the abnormal appearing duodenum. No evidence of duodenal diverticulum nor large ulcer crater. The adjacent gastroduodenal artery is patent and without evidence of pseudoaneurysm. There is no evidence of intraluminal extravasation of injected intravenous contrast in any segment of the bowel. LIVER: There are no focal hepatic lesions nor dilatation of intrahepatic ducts. GALLBLADDER/BILIARY: No obvious gallbladder pathology. CBD is not dilated. PANCREAS: The previously described cystic structure in the pancreatic body measuring 1 x 0.8 cm appears unchanged. No additional focal findings in the pancreas and no dilatation of the pancreatic duct. No peripancreatic fluid collections. SPLEEN: Spleen is not enlarged. There are no intrasplenic lesions. Splenic and portal veins are patent. ADRENALS: There are no significant adrenal masses. KIDNEYS: Small benign 1 cm cyst in the anterior cortex of the right kidney is unchanged. This does not require further imaging workup. No calculi nor hydronephrosis. No solid renal masses. z LYMPH NODES: There is no retroperitoneal nor para-aortic adenopathy. No obvious mesenteric masses. ABDOMINAL WALL: No evidence of significant anterior abdominal wall hernia. Previously described finding adjacent to the right internal inguinal ring is unchanged and most probably related to prior right inguinal hernia repair PELVIS: LYMPH NODES: There is no intrapelvic nor inguinal adenopathy. GI: No evidence of appendicitis.No evidence of sigmoid diverticulitis. URINARY BLADDER: No calculi nor masses evident REPRODUCTIVE: Enlarged and lobulated prostate again noted which violates the bladder base. OSSEOUS: No significant osseous lesions. No fractures. IMPRESSION: 1. The main finding here is at the level of the proximal 2/3 of the duodenum. The duodenum is circumferentially edematous over length of approximately 6-7 cm. The distal most duodenum appears spared. There is no obvious free air. Endoscopy recommended. 2. Other findings as above. Report called by myself to ER. Lab Data Lab results reviewed: Yes I reviewed the patient's lab results. Labs: Laboratory Tests Range/Units 05/03/24 05/03/24 05/03/24 10:35 10:48 13:35 WBC (4.4-10.8) 10^3/uL 10.40 RBC (4.36-5.78) 10^6/uL 4.10 L Hgb (13.5-17.5) g/dL 12.6 L 10.9 L Hct (40.0-50.0) % 37.7 L 32.3 L MCV (80-95) fL 92 MCH (27.0-33.0) pg 30.7 MCHC (32.0-36.0) % 33.4 RDW (11.8-14.1) % 12.3 Plt Count (130-400) 10^3/uL 372 MPV (8.0-11.0) fL 8.7 Immature Gran % % 0.3 Neutrophils % % 75.0 Lymphocytes % % 16.8 Monocytes % % 6.8 Eosinophils % % 0.7 Basophils % % 0.4 Nucleated RBC % (0.0-0.3) % 0.0 Absolute Neutrophils (1.2-6.7) 10^3/uL 7.80 H Absolute Lymphocytes (1.2-3.4) 10^3/uL 1.75 Absolute Monocytes (0.1-0.8) 10^3/uL 0.71 Absolute Eosinophils (0.0-0.7) 10^3/uL 0.07 Absolute Basophils (0.0-0.2) 10^3/uL 0.04 PT (9.1-11.1) sec 11.0 INR (0.9-1.1) 1.1 APTT (23.6-32.8) sec 27.2 VBG Lactate (0.6-1.4) mmol/L 1.5 H Sodium (136-145) mmol/L 139 Potassium (3.5-5.1) mmol/L 3.8 Chloride (98-107) mmol/L 103 Carbon Dioxide (21.0-32.0) mmol/L 27.0 Anion Gap (3-11) mmol/L 9.0 BUN (7-18) mg/dL 18 Creatinine (0.70-1.30) mg/dL 1.2 Est GFR (CKD-EPI 2020) (mL/min/1.73m2) 63.85 Glucose (74-106) mg/dL 105 Calcium (8.5-10.1) mg/dL 10.2 H Magnesium (1.8-2.4) mg/dL 2.3 Total Bilirubin (0.2-1.0) mg/dL 0.75 Conjugated Bilirubin (0.0-0.2) mg/dL 0.2 AST (15-37) U/L 16 ALT (16-63) U/L 24 Alkaline Phosphatase (46-116) U/L 61 Total Protein (6.4-8.2) g/dL 8.3 H Albumin (3.4-5.0) g/dL 4.3 Lipase (16-77) U/L 38 ABO/Rh A Positive Antibody Screen NEGATIVE Quality:SDOH Health Related Social Needs: No Data to Display PFSH All Active Problems (Updated 05/03/24 @ 15:28 by Mariana Perez DO) BPH (benign prostatic hyperplasia) (Chronic) Acute on chronic blood loss anemia (Acute) Duodenitis (Acute) Upper GI bleeding (Acute) Abdominal discomfort (Acute) Vision changes (Acute) Skin lesions (Acute) Lightheadedness (Acute) HTN (hypertension) (Acute) Hyperlipidemia (Acute) Medical History Urinary urgency Right inguinal hernia Repaired 04/2020 Weight loss Dribbling urine Orthostatic dizziness Palpitations Had worked up with ZIO patch per Peritz 09/13/19 Per note:?The patient was in normal sinus rhythm for the majority of the recording. ?There were 9 episodes of supraventricular tachycardia with the longest lasting 19 beats. ?There were frequent (8.7%) isolated supraventricular ectopic beats. ?There were no episodes of ventricular tachycardia and rare (less than 1%) single ventricular ectopic beats. ?There were no episodes of atrial fibrillation no pauses greater than 3 seconds and no episodes of high degree heart block. ?Patient triggered events were associated with sinus rhythm as well as supraventricular ectopic beats. Surgical History History of tonsillectomy and adenoidectomy History of vasectomy Family History Mother , 89 Breast cancer Heart disease Father Stroke Sister No problems noted. Son Alcohol abuse now sober Depression Daughter No problems noted. Social History Smoking/Tobacco Use Status: Former Tobacco Use tobacco type: cigarettes Quit Date: 07/27/94 Tobacco: How many years used: 30 Second Hand Exposure: Yes (Not in a long long time) Smoking risk assessment performed?: Yes Alcohol Intake: never Drug use: Current Sobriety Substance use type: former substance user Date of last use: Over 50 years ago, marijuana, crack/cocaine and hallucinogens Adopted: No Caregiver/Support person: No Household members: significant other and other Details: one young adult, partners son Housing: house Number of Children: 2 number of grandchildren: 1 Communication Needs: None and Corrective Lenses Education Level: college Details: B.S. 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 Pets and animals: Yes Pets and animals: other Details: rabbits Sexually active: Yes Do you think of yourself as: straight/heterosexual Current gender identity: male What is your relationship status?: living with partner How often do you talk on the phone with friends or family?: once per week How often do you get together with friends or relatives?: once per week How often do you attend scientology or temple services?: decline to answer Do you belong to any clubs or organized social groups?: yes Panel score (0-1 are the most socially isolated patients): 2 What type of physical activity do you participate in: weight lifting and yoga Duration: < 15 minutes/day Frequency: 1-2 times per week Humera/Episcopalian: No preference Special humera needs: No Seatbelt use: always Drive intox or ride w/intox catering truck 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
[2024-05-03 11:00] LABS: INR 1.1 (0.9-1.1); PTT Activated 27.2 sec (23.6-32.8)
[2024-05-03 11:04] LABS: ALT 24 U/L (16-63); AST 16 U/L (15-37); Albumin 4.3 g/dL (3.4-5.0); Alkaline Phosphatase 61 U/L (46-116); BUN 18 mg/dL (7-18); Bilirubin, Direct 0.2 mg/dL (0.0-0.2); Bilirubin, Total 0.75 mg/dL (0.2-1.0); CREATININE 1.2 mg/dL (0.70-1.30); Calcium 10.2 mg/dL (8.5-10.1); Chloride 103 mmol/L (98-107); Estimated GFR 63.85 (mL/min/1.73m2); Glucose 105 mg/dL (74-106); Lipase 38 U/L (16-77); Magnesium 2.3 mg/dL (1.8-2.4); Potassium 3.8 mmol/L (3.5-5.1); Sodium 139 mmol/L (136-145); Total Protein 8.3 g/dL (6.4-8.2)
[2024-05-03] MEDS: Normal Saline 1,000 ML 1000 ML IV (11:47)
[2024-05-03] MEDS: Pantoprazole 40 MG VIAL IVP ×2 (11:47→22:04)
[2024-05-03] MEDS: Normal Saline - Diluent 50 ML VIAL IJ (12:02)
[2024-05-03] MEDS: Omnipaque 350 MG/ML 500 ML BTL-Imaging package 70 ML IJ (12:03)
[2024-05-03] MEDS: Ondansetron 4 MG/2 ML VIAL IVP (12:06)
--- NOTE | 2024-05-03 12:22 | DI.CT_ITS ---
Exam(s) CT ABDOMEN PELVIS CTA EXAM: CT ABDOMEN PELVIS CTA CLINICAL HISTORY: black tarry stools, vomiting, GI bleed. TECHNIQUE: Imaging Protocol: Axial computed tomography images with coronal and sagittal reformatted images were created and reviewed CONTRAST MATERIAL: Intravenous: Omnipaque 350 Contrast volume:70 mL Oral: None COMPARISON: CT CT ABDOMEN PELVIS W from 12/31/2023 FINDINGS: ABDOMEN: CTA and BOWEL: The abdominal aorta exhibits moderate atherosclerotic change but there is no evidence of abdominal aortic aneurysm nor dissection.There is mild fusiform dilatation the distal right common iliac artery with maximum external diameter 1.5 cm. No dissection. No significant stenosis at the origin of superior mesenteric artery. No evidence of embolus within t his vessel nor significant atherosclerotic narrowing of this vessel. The inferior mesenteric artery is patent. Celiac artery patent. Some calcified plaque is noted in the ostium of the right renal ar sohail. There are no ischemic appearing smaller large bowel loops and there are no large meandering mesenteri c vessels. No evidence of colitis pattern and no significant diverticular disease in the colon. No evidence of bowel obstruction. There is abnormal circumferential mucosal thickening-edema in the wall of the pylorus and proximal 2/ 3 of the duodenal C-loop. Distal most duodenum appears unremarkable as do proximal and more distal s mall bowel loops. There is no free air around the abnormal appearing duodenum. No evidence of duode nal diverticulum nor large ulcer crater. The adjacent gastroduodenal artery is patent and without ev idence of pseudoaneurysm. There is no evidence of intraluminal extravasation of injected intravenous contrast in any segment of the bowel. LIVER: There are no focal hepatic lesions nor dilatation of intrahepatic ducts. GALLBLADDER/BILIARY: No obvious gallbladder pathology. CBD is not dilated. PANCREAS: The previously described cystic structure in the pancreatic body measuring 1 x 0.8 cm appea rs unchanged. No additional focal findings in the pancreas and no dilatation of the pancreatic duct. No peripancreatic fluid collections. SPLEEN: Spleen is not enlarged. There are no intrasplenic lesions. Splenic and portal veins are bower nt. ADRENALS: There are no significant adrenal masses. KIDNEYS: Small benign 1 cm cyst in the anterior cortex of the right kidney is unchanged. This does n ot require further imaging workup. No calculi nor hydronephrosis. No solid renal masses. z LYMPH NODES: There is no retroperitoneal nor para-aortic adenopathy. No obvious mesenteric masses. ABDOMINAL WALL: No evidence of significant anterior abdominal wall hernia. Previously described find ing adjacent to the right internal inguinal ring is unchanged and most probably related to prior righ t inguinal hernia repair PELVIS: LYMPH NODES: There is no intrapelvic nor inguinal adenopathy. GI: No evidence of appendicitis.No evidence of sigmoid diverticulitis. URINARY BLADDER: No calculi nor masses evident REPRODUCTIVE: Enlarged and lobulated prostate again noted which violates the bladder base. OSSEOUS: No significant osseous lesions. No fractures. IMPRESSION: 1. The main finding here is at the level of the proximal 2/3 of the duodenum. The duodenum is circum ferentially edematous over length of approximately 6-7 cm. The distal most duodenum appears spared. There is no obvious free air. Endoscopy recommended. 2. Other findings as above. Report called by myself to ER. RADIATION DOSE DELIVERED: 658.42mGy.cm Total DLP DATA REPOSITORY: All CT scans at this facility are submitted to the National Radiology Data Registry (NRDR) Dose Index Registry (DIR) with the [employer] (ACR). RADIATION OPTIMIZATION: All CT scans at this facility use at least one of these dose optimization te chniques: automated exposure control; mA and/or kV adjustment per patient size (includes targeted exa ms where dose is matched to clinical indication); or iterative reconstruction.
[2024-05-03 13:45] LABS: HCT 32.3 % (40.0-50.0); HGB 10.9 g/dL (13.5-17.5)
--- NOTE | 2024-05-03 14:00 | RT.EKG_ITS ---
APPROVED REPORT Exam: Resting ECG Reason for Exam: pre-op Patient Location: E HR:85 bpm ECG Measurements Heart Rate 85 AXIS TX 124 P 31 QRSd 94 QRS 12 QT 389 T 63 QTc 463 Conclusion Sinus rhythm...normal P axis, V-rate 60- 99 Atrial premature complexes...SV complexes w/ short R-R intvls
--- NOTE | 2024-05-03 15:01 | ANES.PREOP_ITS ---
General Info Date of Service Date Performed: 05/03/24 Height: 5 ft 10 in Weight: 72.85 kg Body Mass Index (BMI): 23.0 Surgical Procedure: Operation Date: 05/03/24 14:35 Proposed Procedure Side Surgeon p Gastroscopy Mariana Perez DO Meds Allergies and Home Medications Allergies Allergy/AdvReac Type Severity Reaction Status Date / Time No Known Allergies Allergy Verified 05/03/24 10:12 Home Medication ?Medication ?Instructions ?Recorded multivitamin 1 tab PO DAILY 05/21/20 acetaminophen 325 mg capsule 650 mg (2 x 325 mg) PO Q6H PRN 05/23/20 (Tylenol) fever or pain #30 caps ibuprofen 600 mg tablet 600 mg PO Q6H PRN fever or pain 06/02/20 #30 tabs latanoprost 0.005 % eye drops 1 drp ophthalmic (eye) QPM 01/28/22 prochlorperazine maleate 10 mg 10 mg PO TID PRN nausea and 01/02/24 tablet (Compazine) vomiting #30 tabs amlodipine 5 mg tablet 5 mg PO DAILY #90 tabs 03/07/24 lisinopril 30 mg tablet 30 mg PO DAILY #90 tabs 03/07/24 Current Visit Medications: Current Medications Generic Name Dose Route Start Last Admin Trade Name Freq PRN Reason Stop Dose Admin Iohexol 70 ml 05/03/24 12:15 05/03/24 12:03 Omnipaque 350 Mg/Ml 500 Ml Btl-Imaging Package IJ 06/02/24 23:59 70 ml DIRECTED MELISSA Administration Sodium Chloride 50 ml 05/03/24 12:15 05/03/24 12:02 Normal Saline - Diluent 50 Ml Vial IJ 50 ml .FOR DI USE MELISSA Administration PFSH Active Problems Active Problems: Problem Status Onset Code Duodenitis Acute K29.80 Upper GI bleeding Acute K92.2 Abdominal discomfort Acute R10.9 Vision changes Acute H53.9 Skin lesions Acute L98.9 Lightheadedness Acute R42 HTN (hypertension) Acute I10 Hyperlipidemia Acute E78.5 Medical History Medical History Urinary urgency Right inguinal hernia Repaired 04/2020 Weight loss Dribbling urine Orthostatic dizziness Palpitations Had worked up with ZIO patch per Perikelsea 09/13/19 Per note:?The patient was in normal sinus rhythm for the majority of the recording. ?There were 9 episodes of supraventricular tachycardia with the longest lasting 19 beats. ?There were frequent (8.7%) isolated supraventricular ectopic beats. ?There were no episodes of ventricular tachycardia and rare (less than 1%) single ventricular ectopic beats. ?There were no episodes of atrial fibrillation no pauses greater than 3 seconds and no episodes of high degree heart block. ?Patient triggered events were associated with sinus rhythm as well as supraventricular ectopic beats. Surgical History Surgical History History of tonsillectomy and adenoidectomy History of vasectomy Tobacco Smoking/Tobacco Use Status: Former Tobacco Use Passive smoking exposure: Yes (As a child) Second hand exposure: Yes (Not in a long long time) Alcohol Alcohol Intake: never Substance Use Substance use: Current Sobriety Substance use type: former substance user Date of last use: Over 50 years ago, marijuana, crack/cocaine and hallucinogens Vital Signs and Lab Results Vital Signs Most Recent Vital Signs in EMR: Most Recent Vital Signs Temp Pulse Resp BP Pulse Ox 37.0 C 74 12 185/75 H 98 05/03/24 10:03 05/03/24 10:03 05/03/24 10:03 05/03/24 10:03 05/03/24 10:03 Lab Results 05/03/24 13:35 05/03/24 10:35 Blood Type / Crossmatch: 2 Antibody Screen NEGATIVE 05/03/24 Complete Blood Count: 2 White Blood Count 10.40 10^3/uL (4.4-10.8) 05/03/24 10:35 Red Blood Count 4.10 10^6/uL (4.36-5.78) L 05/03/24 10:35 Hemoglobin 10.9 g/dL (13.5-17.5) L 05/03/24 13:35 Hematocrit 32.3 % (40.0-50.0) L 05/03/24 13:35 Platelet Count 372 10^3/uL (130-400) 05/03/24 10:35 Venous Blood Lactate 1.5 mmol/L (0.6-1.4) H 05/03/24 10:35 Complete Metabolic Panel: 2 Sodium 139 mmol/L (136-145) 05/03/24 10:35 Potassium 3.8 mmol/L (3.5-5.1) 05/03/24 10:35 Chloride 103 mmol/L (98-107) 05/03/24 10:35 Carbon Dioxide 27.0 mmol/L (21.0-32.0) 05/03/24 10:35 BUN 18 mg/dL (7-18) 05/03/24 10:35 Creatinine 1.2 mg/dL (0.70-1.30) 05/03/24 10:35 Est GFR (CKD-EPI 2020) 63.85 (mL/min/1.73m2) 05/03/24 10:35 Magnesium 2.3 mg/dL (1.8-2.4) 05/03/24 10:35 Calcium 10.2 mg/dL (8.5-10.1) H 05/03/24 10:35 Albumin 4.3 g/dL (3.4-5.0) 05/03/24 10:35 Glucose 105 mg/dL (74-106) 05/03/24 10:35 Liver Function Panel: 2 Alanine Aminotransferase (ALT/SGPT) 24 U/L (16-63) 05/03/24 10: 35 Aspartate Amino Transf (AST/SGOT) 16 U/L (15-37) 05/03/24 10:35 Coagulation Panel: 2 INR International Normalized Ratio 1.1 (0.9-1.1) 05/03/24 10:3 5 Prothrombin Time 11.0 sec (9.1-11.1) 05/03/24 10:35 Activated Partial Thromboplast Time 27.2 sec (23.6-32.8) 10:35 Cardiac Panel: 2 No Data to Display Arterial Blood Gas: 2 No Data to Display Venous Blood Gas: 2 No Data to Display Pancreas Panel: 2 Lipase 38 U/L (16-77) 05/03/24 10:35 Thyroid Panel: 2 No Data to Display Infectious Disease: 2 No Data to Display Blood Cultures: 2 No Data to Display Toxicology Panel: 2 No Data to Display Imaging and Studies Imaging and Studies Study information below may be from another EMR and interpreted by another provider. Please see original notes in EMR for more complete details. EKG Summary: 05/03/24: Exam: Resting ECG Reason for Exam: pre-op Patient Location: E HR:85 bpm ECG Measurements Heart Rate 85 AXIS OK 124 P 31 QRSd 94 QRS 12 QT 389 T63 QTc 463 Conclusion Sinus rhythm...normal P axis, V-rate 60- 99 Atrial premature complexes...SV complexes w/ short R-R intvls Otherwise normal ECG Anesthesia Assessment and Plan Anesthesia History Personal History: No History of Anesthesia Complications Family History: No Family History of Anesthesia Complications Exercise Tolerance Exercise Tolerance: Metabolic Equivalents>4 Pertinent Negatives Pertinent Negatives: No Major Cardiovascular Symptoms or Complaints, No Major Pulmonary Symptoms or Complaints, No History of CVA/TIA and Other (Patient endorses episodes of emesis this AM after arriving to the ER. Denies N/V currently ) Cardiac & Pulmonary Exam Cardiac Exam: Normal S1/S2 Heart Sounds Pulmonary Exam: Clear Bilateral Breath Sounds Implantable Cardiac Device Does patient have a Pacemaker or an ICD?: No Airway Exam Known Difficult Airway: No Mallampati Class: 2 Mouth Opening: Normal (> 3cm) Thyromental Distance: Greater than 3 cm Neck Range of Motion: Full ROM Neck Circumference: Normal Teeth Condition: Normal Dentition ASA Classification ASA Score: ASA 2 Emergency Case?: Yes NPO Status NPO Status: NPO Clear Liquids>2 hours Anesthesia Plan Resuscitation Status: Full Code Anesthesia Technique: General Anesthesia Airway Planned: Endotracheal Tube Monitors Used: Standard Monitors Preoperative Comments:: Endorses occasional vomiting over last 24 hours, last episode of emesis ~1000am, last PO intake of food > 8 hours, last PO intake of clears > 2 hours ~ 0900. Denies nausea /Vomiting. Risk benefit of GETA with RSI vs General w/ natural airway discussed with patient. Plan GETA, Prop infusion, adequate IV access, standard monitors. All questions sought and discussed with patient and spouse.
--- NOTE | 2024-05-03 15:21 | W.PM.HP.N ---
Date of service: 05/03/24 Time of Service: 15:22 Assessment and Plan Assessment and plan (1) HTN (hypertension): Status: Acute Qualifiers: Hypertension type: essential hypertension Qualified Code(s): I10 - Essential (primary) hypertension (2) Hyperlipidemia: Status: Acute Qualifiers: Hyperlipidemia type: mixed hyperlipidemia Qualified Code(s): E78.2 - Mixed hyperlipidemia (3) Duodenitis: Status: Acute (4) Upper GI bleeding: Status: Acute (5) Acute on chronic blood loss anemia: Status: Acute Assessment and plan: Given the patient's history/findings on CT/anemia, I do suspect that he may have a bleeding ulcer. He is going to go for an urgent EGD. Informed consent is obtained for the procedural (explained in simple layman's terms that the pt. and/or family could understand) explaining risks vs benefits and alternatives to the procedure and consequences if we do not do the procedure and need/rational for the procedure. Risks include but are not limited to: bleeding, infection, perforation of esophagus, stomach, colon, small intestines, bronchus or trachea, or PTX. This would necessitate emergency surgery to repair the damage w/ possible ostomy; and other associated complications w/ the required surgery. Also complications of anesthesia including aspiration, FL/CVA/. Depending on what we find we may keep him overnight IV PPI and Carafate and monitor hemoglobin If EGD is normal then we will plan to schedule him for colonoscopy Thursday Risks, benefits, expectations discussed with patient he is agreement we will take him for urgent EGD Further recommendations to follow based on findings at endoscopy This document was created with voice activated software and may contain errors. 30 mins spent in direct pt care and 30 in non face to face time (6) BPH (benign prostatic hyperplasia): Status: Chronic (7) Weight loss: (8) Abdominal discomfort: Status: Acute History of Present Illness Narrative: Patient is a 73-year-old male who presents to the ER complaining of abdominal pain. This is been going off and on for the last 2 years. He was in the ED twice in December and received IV fluids. But really was not really given a diagnosis. Today he is in the ER again complaining of pain. He says it is more in the infraumbilical suprapubic region. He has a had a history of a right inguinal hernia repair in the past. When he gets flares the hernia hurts. He says it is a burning acid he feeling. It radiates into his low back. But it is not in the epigastric position. He has been having a lot of heartburn or indigestion. He is not on any stomach medication he has not been taking anything. He had 1 episode of nausea and vomiting last night he had another episode of nausea and vomiting this morning. He has not really eaten anything in the past 24 hours. He has not vomited blood. He notes his stools have been black and tarry. He has had pain in the right lower quadrant and difficulty moving the stools. He is lost a significant amount of weight in the last 2 months. He has no pain or difficulty swallowing. He just does not have any appetite. He is also noted that he has been very fatigued/short of breath/decreased exercise exercise tolerance. He has felt weak and dizzy. He denies any chest pain or shortness of breath. He denies any productive cough. He does not take aspirin or ibuprofen on a regular basis. He is not on any blood thinners. He has stopped drinking coffee because it bothers his stomach. He is also noted that tomatoes bother his stomach. He does not drink alcohol. He does not smoke. He is not diabetic. He has no asthma or COPD or sleep apnea. Past surgeries significant for vasectomy and a right inguinal hernia repair. He denies any problems with anesthesia. He does not really know his family history. He has never had a colonoscopy. He had an EKG today that was normal. I did personally review his labs and his CT scan today which do the show thickening in the duodenum and are suspicious for a duodenal ulcer with a hemoglobin of 10. Review of Systems All systems reviewed & are unremarkable except as noted in HPI and below PFSH All Active Problems (Updated 05/03/24 @ 15:28 by Mariana Perez DO) BPH (benign prostatic hyperplasia) (Chronic) Acute on chronic blood loss anemia (Acute) Duodenitis (Acute) Upper GI bleeding (Acute) Abdominal discomfort (Acute) Vision changes (Acute) Skin lesions (Acute) Lightheadedness (Acute) HTN (hypertension) (Acute) Hyperlipidemia (Acute) Medical History Urinary urgency Right inguinal hernia Repaired 04/2020 Weight loss Dribbling urine Orthostatic dizziness Palpitations Had worked up with ZIO patch per Perikelsea 09/13/19 Per note:?The patient was in normal sinus rhythm for the majority of the recording. ?There were 9 episodes of supraventricular tachycardia with the longest lasting 19 beats. ?There were frequent (8.7%) isolated supraventricular ectopic beats. ?There were no episodes of ventricular tachycardia and rare (less than 1%) single ventricular ectopic beats. ?There were no episodes of atrial fibrillation no pauses greater than 3 seconds and no episodes of high degree heart block. ?Patient triggered events were associated with sinus rhythm as well as supraventricular ectopic beats. Surgical History History of tonsillectomy and adenoidectomy History of vasectomy Family History Mother , 89 Breast cancer Heart disease Father Stroke Sister No problems noted. Son Alcohol abuse now sober Depression Daughter No problems noted. Social History Smoking/Tobacco Use Status: Former Tobacco Use tobacco type: cigarettes Quit Date: 07/27/94 Tobacco: How many years used: 30 Second Hand Exposure: Yes (Not in a long long time) Smoking risk assessment performed?: Yes Alcohol Intake: never Drug use: Current Sobriety Substance use type: former substance user Date of last use: Over 50 years ago, marijuana, crack/cocaine and hallucinogens Adopted: No Caregiver/Support person: No Household members: significant other and other Details: one young adult, partners son Housing: house Number of Children: 2 number of grandchildren: 1 Communication Needs: None and Corrective Lenses Education Level: college Details: B.S. 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 Pets and animals: Yes Pets and animals: other Details: rabbits Sexually active: Yes Do you think of yourself as: straight/heterosexual Current gender identity: male What is your relationship status?: living with partner How often do you talk on the phone with friends or family?: once per week How often do you get together with friends or relatives?: once per week How often do you attend amish or rastafari services?: decline to answer Do you belong to any clubs or organized social groups?: yes Panel score (0-1 are the most socially isolated patients): 2 What type of physical activity do you participate in: weight lifting and yoga Duration: < 15 minutes/day Frequency: 1-2 times per week Humera/Congregational: No preference Special humera needs: No Seatbelt use: always Drive intox or ride w/intox flatbed 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 Meds Allergies and Home Medications Allergies Allergy/AdvReac Type Severity Reaction Status Date / Time No Known Allergies Allergy Verified 05/03/24 10:12 Home Medications ?Medication ?Instructions ?Recorded ?Confirmed ?Type multivitamin 1 tab PO DAILY 05/21/20 05/03/24 History acetaminophen 325 mg capsule 650 mg (2 x 325 mg) PO Q6H PRN 05/23/20 05/03/24 Rx (Tylenol) fever or pain #30 caps ibuprofen 600 mg tablet 600 mg PO Q6H PRN fever or pain 06/02/20 05/03/24 Rx #30 tabs latanoprost 0.005 % eye drops 1 drp ophthalmic (eye) QPM 01/28/22 05/03/24 History prochlorperazine maleate 10 mg 10 mg PO TID PRN nausea and 01/02/24 05/03/24 Rx tablet (Compazine) vomiting #30 tabs amlodipine 5 mg tablet 5 mg PO DAILY #90 tabs 03/07/24 05/03/24 Rx lisinopril 30 mg tablet 30 mg PO DAILY #90 tabs 03/07/24 05/03/24 Rx Exam Narrative Exam Narrative: PHYSICAL EXAM GENERAL APPEARANCE: Alert, healthy appearance, oriented, x 3,? in no acute distress HYDRATION: Well hydrated HEAD, EYES, EARS, NECK, THROAT: Head is normocephalic, pupils equal, round, reactive to light and accommodation, ocular movement intact, sclera clear and no jaundice. ?Dentition intact. No sore throat.? LUNGS: normal respiration/normal chest excursion. ?Clear to auscultation bilaterally. ?No wheeze. ?HEART: Regular rate and rhythm. no murmurs EXTREMITY: No edema or cyanosis.? no leg pain, redness, swelling.? ABDOMEN: soft and non-tender to palpation.? Normal bowel sounds.? Results Labs 05/03/24 13:35 05/03/24 10:35 Labs: Laboratory Results - last 24 hr 05/03/24 05/03/24 05/03/24 10:35 10:48 13:35 WBC 10.40 RBC 4.10 L Hgb 12.6 L 10.9 L Hct 37.7 L 32.3 L MCV 92 MCH 30.7 MCHC 33.4 RDW 12.3 Plt Count 372 MPV 8.7 Immature Gran % 0.3 Neutrophils % 75.0 Lymphocytes % 16.8 Monocytes % 6.8 Eosinophils % 0.7 Basophils % 0.4 Nucleated RBC % 0.0 Absolute Neutrophils 7.80 H Absolute Lymphocytes 1.75 Absolute Monocytes 0.71 Absolute Eosinophils 0.07 Absolute Basophils 0.04 PT 11.0 INR 1.1 APTT 27.2 VBG Lactate 1.5 H Sodium 139 Potassium 3.8 Chloride 103 Carbon Dioxide 27.0 Anion Gap 9.0 BUN 18 Creatinine 1.2 Est GFR (CKD-EPI 2020) 63.85 Glucose 105 Calcium 10.2 H Magnesium 2.3 Total Bilirubin 0.75 Conjugated Bilirubin 0.2 AST 16 ALT 24 Alkaline Phosphatase 61 Total Protein 8.3 H Albumin 4.3 Lipase 38 ABO/Rh A Positive Antibody Screen NEGATIVE Last Vital Signs Temp 37.0 C 05/03/24 10:03 Pulse 74 05/03/24 10:03 Resp 12 05/03/24 10:03 BP 185/75 H 05/03/24 10:03 Pulse Ox 98 05/03/24 10:03 Time Spent Time spent with Patient: 55-74 minutes Time was spent: preparing to see the patient(eg.review tests), obtaining and/or reviewing separately otained hiistory, ordering medications,tests, procedures, referring, communicating with other health urgent care nurse practitioner, indepentently interpreting results, counseling the patient, care coordination and other
[2024-05-03] MEDS: Lactated Ringers 1,000 ML 50 ML IV (15:38)
--- NOTE | 2024-05-03 15:51 | BOWEL_PTH ---
PATIENT: Fermin Renee LOC: [facility]#:[id number] AGE/SX: 73/M ROOM: 208 RE05/03/[address]: Mariana Perez : 1950 BED: A DIS: 05/06/2024 SPEC #: [id number] RECD: 05/03/24 17:47 STATUS: ANDREW RECarlos #: [id number] JUANITA: 05/03/24 15:[address]: Mariana Perez DEPT: Surgical Specimen RECD BY: Kimberly Faulkner ENTERED: 05/03/24 17:48 SP TYPE: Bowel OTHR DR: Siomara Mckeon, RN CHEMICAL DEPENDENCY Tissues: 1 - BIOPSY BOWEL Procedures: GROSS AND MICRO LEVEL 4 IMMUNOPEROXIDASE STAIN Comments: [id number] (PLEASE CASTANEDA)
[2024-05-03 16:14] LABS: Lab Add On Test done
--- NOTE | 2024-05-03 16:37 | W.PM.ENDDOP ---
Date of service: 05/03/24 Time of Service: 16:38 Endoscopy Report DATE OF PROCEDURE: 05/03/24 PRE-OP DIAGNOSIS: GI bleed POST-OP DIAGNOSIS: same (Duodenal obstruction and ulcerative mass. No active bleeding.) SURGEON: Mariana Perez ANESTHESIA TYPE: General LMA/ETT ESTIMATED BLOOD LOSS: 5 PATHOLOGY: other COMPLICATIONS: None DISPOSITION: PACU PROCEDURE DESCRIPTION: Informed consent was obtained from the pt; explaining the benefits and Risks: bleeding, infections, perforations {which could require surgery or antibiotics and prolonged hospital stay}, or ostomy, and complications of anaesthesia, basil aspiration). The patient was take to the OR and placed in a supine position. General anesthesia is administered per the department of anesthesia. Timeout is done in the standard fashion. An Olympus gastroscope (see RN notes for scope #) was advanced through the oropharynx which was grossly normal, and passed into the esophagus. The proximal and mid-esophagus were normal. The distal esophagus does not show any: dilation/strictures/varices/erosions or ulcers/bleeding noted. The scope was advanced into the stomach and through the pylorus into the duodenum. The there is a significant amount of edema and a large mass in the posterior duodenum. There is a large ulcer crater in the anterior duodenum. This has a thick white eschar around it. There is no active bleeding. The tissue was very edematous and friable. There is significant narrowing of the duodenum but I am able to maneuver the scope past the mass. D2 and beyond appear normal. Multiple biopsies biopsies were done of the duodenal bulb. There were no gastritis/gastropathy/ ulcers/masses noted w/ in the stomach. The scope was retroflexed. The cardia and fundus were noted to be normal. There is no hiatal hernia noted. The Z line was regular. The GE junction was at 38 cm. The scope was removed and the patient was woken up and taken back to [facility] in stable condition.
[2024-05-03 16:54] LABS: Ferritin 19 ng/mL (26-388); Folate 18.7 ng/mL (8.6-20.0); Vitamin B12 688 pg/mL (193-986)
--- NOTE | 2024-05-03 17:14 | W.ANESPOSTOP ---
Postoperative Evaluation Date, Time and Location Date Performed: 05/03/24 Time Performed: 16:55 Patient Location: PACU Vital Signs Most Recent Imported Vital Signs: Most Recent Vital Signs Temp Pulse Resp BP Pulse Ox 36.0 C L 94 H 18 131/73 97 05/03/24 17:01 05/03/24 17:01 05/03/24 17:01 05/03/24 17:01 05/03/24 17:01 Pain Score Most Recent Pain Score: Most Recent Pain Score Pain Level 0 05/03/24 17:01 Assessment Mental Status: Awake (Alert & Oriented to Patient Baseline) Airway and Respiratory Function: Patent airway with normal (patient baseline) respiratory exam Cardiovascular Function: Hemodynamically Stable Hydration Status: Adequately Hydrated Nausea & Vomiting: No Nausea or Vomiting Pain: Pt. Denies Any Pain Peripheral Nerve Block: Patient did not receive a nerve block
--- NOTE | 2024-05-03 17:42 | PGE_ITS ---
Date of Service Date of service: 05/03/24 Time of Service: 17:42 Assessment and Plan Assessment and plan (1) HTN (hypertension): Status: Acute Qualifiers: Hypertension type: essential hypertension Qualified Code(s): I10 - Essential (primary) hypertension (2) Hyperlipidemia: Status: Acute Qualifiers: Hyperlipidemia type: mixed hyperlipidemia Qualified Code(s): E78.2 - Mixed hyperlipidemia (3) Upper GI bleeding: Status: Acute (4) Duodenitis: Status: Acute (5) BPH (benign prostatic hyperplasia): Status: Chronic (6) Acute on chronic blood loss anemia: Status: Acute Assessment and plan: ulcer vs tumor IV protonix q12 liquid carafte ac/hs trend hgb liquid diet if hgb stable in am d/c home on carafate & protonix adn will call as soon as I have bx results. (7) Weight loss: Subjective Subjective Interval history since last seen: The patient is doing well post-op. The pt has minimal sore throat. They are having no nausea or vomiting. The pt is not having any chest pain or SOB, productive cough; no calf pain or swelling. The pt is making good urine. The pt pain is adequately controlled. The case was discussed with nursing and patient?s progress reviewed. All of the pt's home medications were addressed and adjusted accordingly for their oral intact status. HEENT: no jaundice. no eye pain/drainage/redness/swelling. Mild sore throat Cardio- NSR no chest pain, BP stable. Pulm: no sob or productive cough. no hemoptysis I discussed with the patient and/or there family about the findings in surgery and the pt's progress. We will continue to treat as ulcer Dx. We will wait to see what the bx show. I will contact them w/ restuls. F/u in clinic next thursday. We reviewed expectations for progress in the hospital; what the pt could expect for recovery time and length of stay. We discussed the importance of walking and pulmonary toilet to avoid blood clots and pneumonia. We d/w traement of ulcer going forward and lifestyle modifications. Continue with lifestyle modifications: no alcohol, tobacco products, Aspirin or NSAID's (ibuprofen, Motrin, Naprosyn, aleve, etc), soda pop/any carbonated beverages, caffeine (including tea & chocolate), and acidic foods, (tomatoes, citrus, onions, peppermints) spicy or fried/fatty foods. Do not lie down for 30 minutes after eating, and do not eat 2 hours prior to bedtime. Avoid wearing tight fitting clothing/ belts We d/w importance of high protein very soft thivk liquid diet. To eat small frequent meals. see orders check H & H this evening and am Objective Last Vital Signs Temp 36.5 C 05/03/24 17:31 Pulse 62 05/03/24 17:31 Resp 16 05/03/24 17:31 BP 130/68 05/03/24 17:31 Pulse Ox 98 05/03/24 17:31 Laboratory Results - last 24 hr 05/03/24 05/03/24 05/03/24 10:35 10:48 13:35 WBC 10.40 RBC 4.10 L Hgb 12.6 L 10.9 L Hct 37.7 L 32.3 L MCV 92 MCH 30.7 MCHC 33.4 RDW 12.3 Plt Count 372 MPV 8.7 Immature Gran % 0.3 Neutrophils % 75.0 Lymphocytes % 16.8 Monocytes % 6.8 Eosinophils % 0.7 Basophils % 0.4 Nucleated RBC % 0.0 Absolute Neutrophils 7.80 H Absolute Lymphocytes 1.75 Absolute Monocytes 0.71 Absolute Eosinophils 0.07 Absolute Basophils 0.04 PT 11.0 INR 1.1 APTT 27.2 VBG Lactate 1.5 H Sodium 139 Potassium 3.8 Chloride 103 Carbon Dioxide 27.0 Anion Gap 9.0 BUN 18 Creatinine 1.2 Est GFR (CKD-EPI 2020) 63.85 Glucose 105 Calcium 10.2 H Magnesium 2.3 Ferritin Total Bilirubin 0.75 Conjugated Bilirubin 0.2 AST 16 ALT 24 Alkaline Phosphatase 61 Total Protein 8.3 H Albumin 4.3 Lipase 38 Vitamin B12 Folate Add-On Test Request done ABO/Rh A Positive Antibody Screen NEGATIVE 05/03/24 16:07 WBC RBC Hgb Hct MCV MCH MCHC RDW Plt Count MPV Immature Gran % Neutrophils % Lymphocytes % Monocytes % Eosinophils % Basophils % Nucleated RBC % Absolute Neutrophils Absolute Lymphocytes Absolute Monocytes Absolute Eosinophils Absolute Basophils PT INR APTT VBG Lactate Sodium Potassium Chloride Carbon Dioxide Anion Gap BUN Creatinine Est GFR (CKD-EPI 2020) Glucose Calcium Magnesium Ferritin 19 L Total Bilirubin Conjugated Bilirubin AST ALT Alkaline Phosphatase Total Protein Albumin Lipase Vitamin B12 688 Folate 18.7 Add-On Test Request ABO/Rh Antibody Screen Time Spent with Patient Time Spent with Patient: <25 minutes Time was spent: preparing to see the patient(eg.review tests), obtaining and/or reviewing separately otained hiistory, ordering medications,tests, procedures, referring, communicating with other health career technology teacher, indepentently interpreting results, counseling the patient, care coordination and other
[2024-05-03] MEDS: Sucralfate 1 GM TAB PO ×2 (17:58→23:09)
[2024-05-03] MEDS: IRON SUCROSE COMPLEX 200 MG in Normal Saline 100 ML 400 MG IVPB (17:59)
[2024-05-03 20:20] LABS: HCT 29.4 % (40.0-50.0); HGB 9.9 g/dL (13.5-17.5)
--- NOTE | 2024-05-03 21:36 | DSE_ITS ---
DS: Diagnosis Discharge Diagnosis (1) HTN (hypertension): Status: Acute (2) Hyperlipidemia: Status: Acute (3) Upper GI bleeding: Status: Acute (4) Duodenitis: Status: Acute (5) BPH (benign prostatic hyperplasia): Status: Chronic (6) Acute on chronic blood loss anemia: Status: Acute (7) Weight loss: Discharge Plan Disposition Condition: Stable Discharge Details Reason For Visit: bleeding duodenal ulcer Admit Date/Time: 05/03/24 16:23 Admit Provider: Mariana Lua Attending Provider: Mariana Lua Primary Care Provider: Siomara Mckeon Home Meds and New Rx's Prescriptions: New sucralfate 100 mg/mL suspension 1 g PO Q6H 45 Days Qty: 1800 6RF pantoprazole [Protonix] 40 mg tablet,delayed release (DR/EC) 40 mg PO BID 84 Days Qty: 90 4RF Continued latanoprost 0.005 % drops 1 drp ophthalmic (eye) QPM amlodipine 5 mg tablet 5 mg PO DAILY Qty: 90 3RF lisinopril 30 mg tablet 30 mg PO DAILY Qty: 90 1RF prochlorperazine maleate [Compazine] 10 mg tablet 10 mg PO TID PRN (Reason: nausea and vomiting) Qty: 30 0RF multivitamin Tablet 1 tab PO DAILY acetaminophen [Tylenol] 325 mg capsule 650 mg PO Q6H PRN (Reason: fever or pain) Qty: 30 0RF Discontinued ibuprofen 600 mg tablet 600 mg PO Q6H PRN (Reason: fever or pain) Qty: 30 0RF Discharge Instructions Additional Instructions: F/u in clinic 05/09 w/ Dr. lua -Continue with lifestyle modifications: no alcohol, tobacco products, Aspirin or NSAID's (ibuprofen, Motrin, Naprosyn, aleve, etc), soda pop/any carbonated beverages, caffeine (including tea & chocolate), and acidic foods, (tomatoes, citrus, onions, peppermints) spicy or fried/fatty foods. Do not lie down for 30 minutes after eating, and do not eat 2 hours prior to bedtime. Avoid wearing tight fitting clothing/ belts -soft diet: no beef/poor/raw fruits or vegetables. Try to eat multiple small meals through out the day. Protein shakes 1-2 daily. -activity as tolerated. -if any chest pain/SOB/dizzy spells, come to ED. Stools may be black for the next few days. Hopefully this will clear. -Please come to the clinic on for a blood count check. Stand Alone Forms: Anesthesia Discharge Rigo Miller (DSU) Activity:: Activity as Tolerated Diet:: see above DS: Summary Quality:SDOH Health Related Social Needs: No Data to Display DS: Data Vitals/I&O Vitals and I&O: Vital Signs Temperature 36.6 C 05/03/24 19:39 Temperature Source Tympanic 05/03/24 19:39 Pulse 74 05/03/24 19:39 Pulse Rhythm Regular 05/03/24 17:08 Pulse 86 05/03/24 16:41 Respiratory Rate 18 05/03/24 19:39 Respiratory Effort Normal 05/03/24 17:08 Respiratory Depth Normal 05/03/24 17:08 Respiratory Pattern Normal 05/03/24 17:08 Blood Pressure 142/67 H 05/03/24 19:39 Blood Pressure Mean 91 05/03/24 16:41 Blood Pressure Position Sitting 05/03/24 10:03 Pulse Oximetry 98 05/03/24 19:39 Oxygen Delivery Method Room Air 05/03/24 19:39 Oxygen Flow Rate 0 05/03/24 19:39 Pain Level 0 05/03/24 19:39 Comment Pt arrived in pacu 05/03/24 16:25 Intake & Output 05/02/24 05/03/24 05/03/24 23:59 11:59 23:59 Intake Total 1984 Balance 1984 Weight 72.85 kg 72.85 kg Intake: IV 1735 / 1735 Oral 250 / 250 Other: Emesis Description None Voiding Methods Toilet Data Completed and Pending Labs on day of discharge: Labs from last 24 hours 05/03/24 05/03/24 05/03/24 20:10 16:07 13:35 WBC RBC Hgb 9.9 L 10.9 L Hct 29.4 L 32.3 L MCV MCH MCHC RDW Plt Count MPV Immature Gran % Neutrophils % Lymphocytes % Monocytes % Eosinophils % Basophils % Nucleated RBC % Absolute Neutrophils Absolute Lymphocytes Absolute Monocytes Absolute Eosinophils Absolute Basophils PT INR APTT VBG Lactate Sodium Potassium Chloride Carbon Dioxide Anion Gap BUN Creatinine Est GFR (CKD-EPI 2021) Glucose Calcium Magnesium Ferritin 19 L Total Bilirubin Conjugated Bilirubin AST ALT Alkaline Phosphatase Total Protein Albumin Lipase Vitamin B12 688 Folate 18.7 Add-On Test Request ABO/Rh Antibody Screen 05/03/24 05/03/24 10:48 10:35 WBC 10.40 RBC 4.10 L Hgb 12.6 L Hct 37.7 L MCV 92 MCH 30.7 MCHC 33.4 RDW 12.3 Plt Count 372 MPV 8.7 Immature Gran % 0.3 Neutrophils % 75.0 Lymphocytes % 16.8 Monocytes % 6.8 Eosinophils % 0.7 Basophils % 0.4 Nucleated RBC % 0.0 Absolute Neutrophils 7.80 H Absolute Lymphocytes 1.75 Absolute Monocytes 0.71 Absolute Eosinophils 0.07 Absolute Basophils 0.04 PT 11.0 INR 1.1 APTT 27.2 VBG Lactate 1.5 H Sodium 139 Potassium 3.8 Chloride 103 Carbon Dioxide 27.0 Anion Gap 9.0 BUN 18 Creatinine 1.2 Est GFR (CKD-EPI 2020) 63.85 Glucose 105 Calcium 10.2 H Magnesium 2.3 Ferritin Total Bilirubin 0.75 Conjugated Bilirubin 0.2 AST 16 ALT 24 Alkaline Phosphatase 61 Total Protein 8.3 H Albumin 4.3 Lipase 38 Vitamin B12 Folate Add-On Test Request done ABO/Rh A Positive Antibody Screen NEGATIVE PFSH All Active Problems (Updated 05/03/24 @ 21:47 by Mariana Lua DO) Duodenal mass (Acute) Duodenal ulcer (Acute) BPH (benign prostatic hyperplasia) (Chronic) Acute on chronic blood loss anemia (Acute) Duodenitis (Acute) Upper GI bleeding (Acute) Abdominal discomfort (Acute) Vision changes (Acute) Skin lesions (Acute) Lightheadedness (Acute) HTN (hypertension) (Acute) Hyperlipidemia (Acute) Medical History Urinary urgency Right inguinal hernia Repaired 04/2020 Weight loss Dribbling urine Orthostatic dizziness Palpitations Had worked up with ZIO patch per Per[place] 09/13/19 Per note:?The patient was in normal sinus rhythm for the majority of the recording. ?There were 9 episodes of supraventricular tachycardia with the longest lasting 19 beats. ?There were frequent (8.7%) isolated supraventricular ectopic beats. ?There were no episodes of ventricular tachycardia and rare (less than 1%) single ventricular ectopic beats. ?There were no episodes of atrial fibrillation no pauses greater than 3 seconds and no episodes of high degree heart block. ?Patient triggered events were associated with sinus rhythm as well as supraventricular ectopic beats. Surgical History History of tonsillectomy and adenoidectomy History of vasectomy Family History Mother , 89 Breast cancer Heart disease Father Stroke Sister No problems noted. Son Alcohol abuse now sober Depression Daughter No problems noted. Social History Smoking/Tobacco Use Status: Former Tobacco Use tobacco type: cigarettes Quit Date: 07/27/94 Tobacco: How many years used: 30 Second Hand Exposure: Yes (Not in a long long time) Smoking risk assessment performed?: Yes Alcohol Intake: never Drug use: Current Sobriety Substance use type: former substance user Date of last use: Over 50 years ago, marijuana, crack/cocaine and hallucinogens Adopted: No Caregiver/Support person: No Household members: significant other and other Details: one young adult, partners son Housing: house Number of Children: 2 number of grandchildren: 1 Communication Needs: None and Corrective Lenses Education Level: college Details: B.S. 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 Pets and animals: Yes Pets and animals: other Details: rabbits Sexually active: Yes Do you think of yourself as: straight/heterosexual Current gender identity: male What is your relationship status?: living with partner How often do you talk on the phone with friends or family?: once per week How often do you get together with friends or relatives?: once per week How often do you attend zoroastrian or voodoo services?: decline to answer Do you belong to any clubs or organized social groups?: yes Panel score (0-1 are the most socially isolated patients): 2 What type of physical activity do you participate in: weight lifting and yoga Duration: < 15 minutes/day Frequency: 1-2 times per week Humera/Adventism: No preference Special humera needs: No Seatbelt use: always Drive intox or ride w/intox commercial trailer truck 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
[2024-05-03] MEDS: Latanoprost 0.005% 2.5 ML BTL OU (22:03)
[2024-05-03] MEDS: Normal Saline Flush 10 ML SYR IVP (22:04)
[2024-05-04] MEDS: Lactated Ringers 1,000 ML 50 ML IV (02:42)
[2024-05-04] MEDS: Sucralfate 1 GM TAB PO ×3 (05:49→18:12)
[2024-05-04 07:30] VITALS: BP 114/62; PULSE 76; RESP 18; TEMP 36.9; O2SAT 96
[2024-05-04] MEDS: Pantoprazole 40 MG VIAL IVP (08:33)
[2024-05-04] MEDS: amLODIPine 5 MG TAB PO (08:34)
[2024-05-04] MEDS: Lisinopril 10 MG TAB 30 MG PO (08:34)
[2024-05-04] MEDS: Normal Saline Flush 10 ML SYR IVP ×2 (08:34→21:47)
--- NOTE | 2024-05-04 08:40 | INITIAL_ITS ---
Date of service: 05/04/24 Time of Service: 08:40 Care Management Initial Assmt Initial Assessment Reason for Hospitalization: Bleeding duodenal ulcer Functional Status/Living Situation Patient Presentation: Connor was ambulating in his room when CM met with him. He spoke with Surgery just prior to this interaction and his questions were answered to his satisfaction. He is planning on staying overnight and discharge tomorrow if medically ready. Town of Residence: [place] Resides with: Spouse (Significant other and her son. 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[employer].) Instrumental Activities of Daily Living (ADLs): Independent Medications Medication Management: No Issues/Barriers identified Physical Functioning/Mobility Assistive Device: None Advance Directives Advance Directives: Do you have an Advance Directive: N 11/27/15 08:34 AD On File at [facility]: N 08/09/13 10:09 Date Asked 05/03/24 05/03/24 10:10 AD Date Reviewed COLST On File at [facility] No 01/02/24 17:55 COLST Date Scanned Code Status Resuscitation Status Full Code Insurance Coverage/Financial Issues Insurance: Medicare Financial Issues: None identified Care Team Visit Care Team Role Provider Type Siomara Mckeon NP Primary Care Provider NURSE PRACTITIONER GRAYSON Smith Emergency Provider PHYSICIANS GRAIN HANDLER Mariana Perez DO Admit Provider OSTEOPATHIC DOCTOR Attending Provider Discharge Potential Discharge Needs: PCP F/U Appt and Surgical F/U Appt Anticipated Barriers to Discharge: Medical Status Patient/Family Education Needs: Review discharge instructions, discuss Ask Me Three Transportation: Private vehicle Plan: Anticipate, Connor will discharge home via private vehicle with family when medically ready for discharge. New services will be ordered, if indicated. Follow up with community providers and discharge plan of care as recommended. CM will follow. PFSH All Active Problems (Updated 05/03/24 @ 21:47 by Mariana Perez DO) Duodenal mass (Acute) Duodenal ulcer (Acute) BPH (benign prostatic hyperplasia) (Chronic) Acute on chronic blood loss anemia (Acute) Duodenitis (Acute) Upper GI bleeding (Acute) Abdominal discomfort (Acute) Vision changes (Acute) Skin lesions (Acute) Lightheadedness (Acute) HTN (hypertension) (Acute) Hyperlipidemia (Acute) Medical History Urinary urgency Right inguinal hernia Repaired 04/2020 Weight loss Dribbling urine Orthostatic dizziness Palpitations Had worked up with ZIO patch per [place] 09/13/19 Per note:?The patient was in normal sinus rhythm for the majority of the recording. ?There were 9 episodes of supraventricular tachycardia with the longest lasting 19 beats. ?There were frequent (8.7%) isolated supraventricular ectopic beats. ?There were no episodes of ventricular tachycardia and rare (less than 1%) single ventricular ectopic beats. ?There were no episodes of atrial fibrillation no pauses greater than 3 seconds and no episodes of high degree heart block. ?Patient triggered events were associated with sinus rhythm as well as supraventricular ectopic beats. Surgical History History of tonsillectomy and adenoidectomy History of vasectomy Family History Mother , 89 Breast cancer Heart disease Father Stroke Sister No problems noted. Son Alcohol abuse now sober Depression Daughter No problems noted. Social History Smoking/Tobacco Use Status: Former Tobacco Use tobacco type: cigarettes Quit Date: 07/27/94 Tobacco: How many years used: 30 Second Hand Exposure: Yes (Not in a long long time) Smoking risk assessment performed?: Yes Alcohol Intake: never Drug use: Current Sobriety Substance use type: former substance user Date of last use: Over 50 years ago, marijuana, crack/cocaine and hallucinogens Adopted: No Caregiver/Support person: No Household members: significant other and other Details: one young adult, partners son Housing: house Number of Children: 2 number of grandchildren: 1 Communication Needs: None and Corrective Lenses Education Level: college Details: B.S. 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 Pets and animals: Yes Pets and animals: other Details: rabbits Sexually active: Yes Do you think of yourself as: straight/heterosexual Current gender identity: male What is your relationship status?: living with partner How often do you talk on the phone with friends or family?: once per week How often do you get together with friends or relatives?: once per week How often do you attend scientology or religion services?: decline to answer Do you belong to any clubs or organized social groups?: yes Panel score (0-1 are the most socially isolated patients): 2 What type of physical activity do you participate in: weight lifting and yoga Duration: < 15 minutes/day Frequency: 1-2 times per week Humera/Yazidism: No preference Special humera needs: No Seatbelt use: always Drive intox or ride w/intox bus driver supervisor: No Firearms in home: No Do you feel safe at home: Yes Do you feel safe in your relationship?: Yes Victim of physical abuse: No Victim of emotional abuse: No Victim of sexual abuse: No Would you like helpful sources: No SDOH(Care Management) Screening Will the Patient Participate in the Screening?: Yes Do you worry about having a steady place to live?: no Problems where you live: no known problems In the past 12 months, have you had to go without electric, gas, oil or water in your home?: no Have you or anyone in your house had to go without enough food to eat?: no Has lack of transportation kept you from medical appointments or from doing things needed for daily living?: no Has anyone in your support network made you feel unsafe for any reason?: no
[2024-05-04 09:13] LABS: HCT 29.8 % (40.0-50.0); HGB 9.8 g/dL (13.5-17.5)
[2024-05-04 13:15] VITALS: BP 92/56; PULSE 62; RESP 16; TEMP 36.7
--- NOTE | 2024-05-04 14:22 | CHAPLAIN ---
Connor was up walking around his room when I visited. He told me that he's been very pleased with the care and services he has received here. His partner has been here often and has been helpful in listening to the details shared by the surgeon, Connor said. He expects she'll be back later today. 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 He's paid by [facility] but the massages are free to patients, family members staff. Connor finds this work very meaningful. Today he received Reiki from the [facility] volunteer and very much appreciated that. I explained my role and offered support. Connor told me about spending time with the [facility] drywall stripper helper recently when she was at the Cancer Center in [facility] and coming to appreciate her role.
--- NOTE | 2024-05-04 14:52 | PGE_ITS ---
Date of Service Date of service: 05/04/24 Time of Service: 14:52 Assessment and Plan Assessment and plan (1) Duodenal mass: Status: Acute Assessment and plan: His hemoglobin this morning is very reassuring, and I think it is fine to switch him over from a Protonix infusion to an enteral regimen. I will stop his intravenous fluids, and advance him to at least full liquids today. Will repeat a hemoglobin tomorrow, assuming he does well with advancing his diet and that hemoglobin is stable, then we will plan for discharge home tomorrow. Subjective Subjective Interval history since last seen: Connor seems to be doing pretty well today. He is tolerating some liquids wi thout any nausea or vomiting. He is got some very mild abdominal discomfort, but certainly feels better than when he came into the emergency department. Exam GI Other: His abdomen is soft and nondistended. He is not tender. I do not appreciate any masses. Objective Last Vital Signs Temp 98.1 F 05/04/24 13:15 Pulse 62 05/04/24 13:15 Resp 16 05/04/24 13:15 BP 92/56 L 05/04/24 13:15 Pulse Ox 96 05/04/24 07:30 Laboratory Results - last 24 hr 05/03/24 05/03/24 05/03/24 10:35 16:07 20:10 Hgb 9.9 L Hct 29.4 L Ferritin 19 L Vitamin B12 688 Folate 18.7 Add-On Test Request done 05/04/24 09:10 Hgb 9.8 L Hct 29.8 L Ferritin Vitamin B12 Folate Add-On Test Request Time Spent with Patient Time Spent with Patient: 25-34 minutes Time was spent: preparing to see the patient(eg.review tests), indepentently int erpreting results and counseling the patient
--- NOTE | 2024-05-04 14:57 | PHA.REVIEW2 ---
Pharmacy Admission Review Admission Clinical Review Admission Pharmacy Review: Duodenal mass (Acute) Acute on chronic blood loss anemia (Acute) Duodenitis (Acute) Upper GI bleeding (Acute) Abdominal discomfort (Acute) HTN (hypertension) (Acute) Hyperlipidemia (Acute) No Known Allergies Allergy (Verified 05/03/24 10:12) Resuscitation Status Full Code Height 5 ft 10 in Weight 72.85 kg Comments Comments/Follow Ups: Per progress note, will be discharged home tomorrow as long as Hgb remains stable Pharmacy Admission Review Renal Dosing Renal Dosing: BUN 18 mg/dL (7-18) 05/03/24 10:35 Creatinine 1.2 mg/dL (0.70-1.30) 05/03/24 10:35 Medications needing adjustments: Reviewed (CrCl 56.4 mL/min) List of meds needing interventions: Current medications are okay Anticoagulation Anticoagulation: Hgb 9.8 g/dL (13.5-17.5) L 05/04/24 09:10 Hct 29.8 % (40.0-50.0) L 05/04/24 09:10 Plt Count 372 10^3/uL (130-400) 05/03/24 10:35 INR 1.1 (0.9-1.1) 05/03/24 10:35 Creatinine 1.2 mg/dL (0.70-1.30) 05/03/24 10:35 DVT Prophylaxis: Reviewed (SCDs - POD #1 for bleeding ulcer, Hgb decreased from 9.9, HCt increased from 29.4) Opiate Usage Evaluate Pain Scale/Pains Meds: Reviewed (morphine IVP PRN - no doses given) Scheduled Bowel Reg ordered if on Opiates?: No Relevant Labs Relevant Labs: Sodium 139 mmol/L (136-145) 05/03/24 10:35 Potassium 3.8 mmol/L (3.5-5.1) 05/03/24 10:35 Chloride 103 mmol/L (98-107) 05/03/24 10:35 Magnesium 2.3 mg/dL (1.8-2.4) 05/03/24 10:35 Electrolytes, C-Reactive P, ESR: Reviewed (No new labs for today) Cardiac Review BP, HR, EF%: Reviewed (BP 92/56 and HR WNL) List meds needing interventions: Has order for amlodipine 5mg daily and lisinopril 30mg daily QTc Review QTc: Reviewed (463 from 05/03/24) IV to PO Switch IV Medications: Reviewed (morphine and ondansetron) Home Meds Home Med List reviewed: Reviewed Relevent Home Meds Not ordered & why?: multivitamin and prochlorperazine (PRN) Current Meds Current Medication Order Review: Reviewed Comments Comments/Follow Ups: Per progress note, will be discharged home tomorrow as long as Hgb remains stable
[2024-05-04 15:16] VITALS: BP 93/51; PULSE 69; RESP 18; TEMP 36.7; O2SAT 100
[2024-05-04] MEDS: Benzocaine/Menthol LOZG 15/BOX 1 EACH SUC (16:07)
[2024-05-04 19:50] VITALS: BP 121/57; PULSE 88; RESP 16; TEMP 36.4; O2SAT 99
[2024-05-04] MEDS: Pantoprazole 40 MG TABCR PO (21:46)
[2024-05-04] MEDS: Latanoprost 0.005% 2.5 ML BTL OU (21:47)
[2024-05-05] MEDS: Sucralfate 1 GM TAB PO ×3 (00:12→17:33)
[2024-05-05] MEDS: Normal Saline Flush 10 ML SYR IVP ×3 (08:30→20:45)
[2024-05-05] MEDS: Lisinopril 10 MG TAB 30 MG PO (08:30)
[2024-05-05] MEDS: amLODIPine 5 MG TAB PO (08:30)
[2024-05-05] MEDS: Pantoprazole 40 MG TABCR PO (08:30)
[2024-05-05 09:05] VITALS: BP 123/63; PULSE 71; RESP 18; TEMP 36.4; O2SAT 98
[2024-05-05 09:11] LABS: HGB 8.9 g/dL (13.5-17.5)
--- NOTE | 2024-05-05 10:28 | PGE_ITS ---
Date of Service Date of service: 05/05/24 Time of Service: 10:28 Assessment and Plan Assessment and plan (1) HTN (hypertension): Status: Acute Qualifiers: Hypertension type: essential hypertension Qualified Code(s): I10 - Essential (primary) hypertension (2) Hyperlipidemia: Status: Acute Qualifiers: Hyperlipidemia type: mixed hyperlipidemia Qualified Code(s): E78.2 - Mixed hyperlipidemia (3) Duodenitis: Status: Acute (4) Duodenal ulcer: Status: Acute Assessment and plan: -hgb continues to slowly drift down. hgb 8.9 today It was stab;e on IV protonix, switch back over to IV protonix and po carafate will give x1 dose TXA pt not hungry. continue w/ soft diet and reviewed dietary measures path did come back as duodenitis/PUD. no signs malignancy/dysplasia. 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 (5) BPH (benign prostatic hyperplasia): Status: Chronic (6) Acute on chronic blood loss anemia: Status: Acute (7) Upper GI bleeding: Status: Acute (8) Abdominal discomfort: Status: Acute (9) Iron deficiency anemia due to chronic blood loss: Status: Acute Assessment and plan: transfuse venofer today. will have received x2 doses today this admission Subjective Subjective Interval history since last seen: Pt is doing ok. no headaches. No CP or SOB. no productive cough. no dysuria. no leg pain or swelling. He feels bloated/like he over-ate. No bm yet BP /hgb are low this am Exam Narrative Exam Narrative: PHYSICAL EXAM GENERAL APPEARANCE: Alert, healthy appearance, oriented, x 3,? in no acute distress HYDRATION: Well hydrated HEAD, EYES, EARS, NECK, THROAT: Head is normocephalic, pupils equal, round, reactive to light and accommodation, ocular movement intact, sclera clear and no jaundice. ?Dentition intact. NECK: no lymphadenopathy.? Trachea midline.? Neck supple.? No JVD LUNGS: normal respiration/normal chest excursion. ?Clear to auscultation bilaterally. ?No wheeze. ?HEART: Regular rate and rhythm. no murmurs EXTREMITY: No edema or cyanosis.? no leg pain, redness, swelling.? ABDOMEN: soft and non-tender to palpation.? Normal bowel sounds.? Objective Last Vital Signs Temp 36.4 C L 05/05/24 09:05 Pulse 71 05/05/24 09:05 Resp 18 05/05/24 09:05 BP 123/63 05/05/24 09:05 Pulse Ox 98 05/05/24 09:05 Time Spent with Patient Time Spent with Patient: 25-34 minutes Time was spent: preparing to see the patient(eg.review tests), obtaining and/or reviewing separately otained hiistory, ordering medications,tests, procedures, referring, communicating with other health career services coordinator, indepentently interpreting results, counseling the patient, care coordination and other
[2024-05-05 11:24] VITALS: BP 93/54; PULSE 76; RESP 18; TEMP 36.7; O2SAT 99
[2024-05-05] MEDS: IRON SUCROSE COMPLEX 200 MG in Normal Saline 100 ML 400 MG IVPB (11:41)
[2024-05-05] MEDS: Tranexamic Acid 1,000 MG/10 ML VIAL 1000 MG IVP (12:19)
--- NOTE | 2024-05-05 12:32 | PDOC.CMPRO ---
Date of service: 05/05/24 Time of Service: 12:32 Care Management Progress Note Progress Note Text Progress Note Text: Fermin was awake and resting in bed when CM met with him. His labs are being closely monitored for acute bleeding which may require a blood transfusion. Connor reports that he talked with the surgeon today and was grateful to hear that the biopsy was negative for malignancy. No concerns at this time, per pt he was told he may discharge tomorrow if medically ready. Discharge Potential Discharge Needs: PCP F/U Appt and Surgical F/U Appt Anticipated Barriers to Discharge: Medical Status Patient/Family Education Needs: Review discharge instructions, discuss Ask Me Three Transportation: Private vehicle Plan: Requires further monitoring for acute bleeding. Anticipate, Connor will discharge home via private vehicle with family when medically ready for discharge. New services will be ordered, if indicated. Follow up with community providers and discharge plan of care as recommended. CM will follow. SDOH(Care Management) Screening Will the Patient Participate in the Screening?: Yes Do you worry about having a steady place to live?: no Problems where you live: no known problems In the past 12 months, have you had to go without electric, gas, oil or water in your home?: no Have you or anyone in your house had to go without enough food to eat?: no Has lack of transportation kept you from medical appointments or from doing things needed for daily living?: no Has anyone in your support network made you feel unsafe for any reason?: no
[2024-05-05] MEDS: Normal Saline 100 ML 75 ML (12:50)
[2024-05-05] MEDS: Normal Saline 50 ML (12:51)
[2024-05-05] MEDS: Normal Saline 500 ML IV (13:01)
[2024-05-05] MEDS: Polyethylene Glycol 3350 17 GM PACKET PO (13:15)
[2024-05-05 15:10] VITALS: BP 113/55; PULSE 64; RESP 18; TEMP 36.7; O2SAT 100
[2024-05-05 18:43] LABS: HCT 28.2 % (40.0-50.0); HGB 9.3 g/dL (13.5-17.5)
[2024-05-05 19:24] VITALS: BP 110/55; PULSE 74; RESP 16; TEMP 36.6; O2SAT 99
[2024-05-05] MEDS: Latanoprost 0.005% 2.5 ML BTL OU (20:44)
[2024-05-06] MEDS: Sucralfate 1 GM TAB PO ×3 (00:16→11:04)
[2024-05-06 07:31] LABS: HCT 27.6 % (40.0-50.0); HGB 9.2 g/dL (13.5-17.5)
[2024-05-06 07:48] VITALS: BP 110/60; PULSE 74; RESP 14; TEMP 36.6; O2SAT 98
[2024-05-06] MEDS: Polyethylene Glycol 3350 17 GM PACKET PO (07:50)
[2024-05-06] MEDS: Lisinopril 10 MG TAB 30 MG PO (07:50)
[2024-05-06] MEDS: amLODIPine 5 MG TAB PO (07:50)
[2024-05-06] MEDS: Normal Saline Flush 10 ML SYR IVP (07:50)
[2024-05-06] MEDS: Pantoprazole 40 MG TABCR PO (08:30)
--- NOTE | 2024-05-06 09:03 | PDOC.CMPRO ---
Date of service: 05/06/24 Time of Service: 09:03 Care Management Progress Note Progress Note Text Progress Note Text: Connor was sitting in a chair, reading a book, in front of his room window when CM met with him. He reports that he slept well and is feeling great after showering this morning. Connor plans on discharging home when medically ready. CM will follow. Discharge Potential Discharge Needs: PCP F/U Appt Anticipated Barriers to Discharge: Medical Status Patient/Family Education Needs: Review discharge instructions, discuss Ask Me Three Transportation: Private vehicle Plan: Anticipate, Connor will discharge home via private vehicle with family when medically ready for discharge. New services will be ordered, if indicated. Follow up with community providers and discharge plan of care as recommended. CM will follow. SDOH(Care Management) Screening Will the Patient Participate in the Screening?: Yes Do you worry about having a steady place to live?: no Problems where you live: no known problems In the past 12 months, have you had to go without electric, gas, oil or water in your home?: no Have you or anyone in your house had to go without enough food to eat?: no Has lack of transportation kept you from medical appointments or from doing things needed for daily living?: no Has anyone in your support network made you feel unsafe for any reason?: no
[2024-05-06 14:49] VITALS: BP 110/67; PULSE 83; RESP 17; TEMP 37.1; O2SAT 99
--- NOTE | 2024-05-06 17:04 | CHAPLAIN ---
Connor was reading when I visited. We talked about the book he's reading, and another favorite author of his Juan Reece, a Celtic promotion writer. 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 He's waiting for an update of his status and hopes to be going home soon. His partner was is visiting later this afternoon.
--- NOTE | 2024-05-06 17:28 | DSE_ITS ---
Date of service: 05/06/24 Time of Service: 17:28 DS: Diagnosis Discharge Diagnosis (1) HTN (hypertension): Status: Acute (2) Hyperlipidemia: Status: Acute (3) Duodenitis: Status: Acute (4) Duodenal ulcer: Status: Acute (5) BPH (benign prostatic hyperplasia): Status: Chronic (6) Acute on chronic blood loss anemia: Status: Acute (7) Upper GI bleeding: Status: Acute (8) Abdominal discomfort: Status: Acute (9) Iron deficiency anemia due to chronic blood loss: Status: Acute Discharge Plan Disposition Patient Disposition: Home Condition: Good Discharge Details Reason For Visit: bleeding duodenal ulcer Admit Date/Time: 05/03/24 16:23 Admit Provider: Mariana Perez Attending Provider: Mariana Perez [facility]: Connor is 73 years old. He came to the emergency department with a chief complaint of increasing abdominal pain. He underwent a CT scan of the abdomen and pelvis that demonstrated some changes around the duodenum. He was also found to be anemic. He was admitted to the hospital, and started on proton pump inhibitor therapy with sucralfate. He underwent EGD that demonstrated an abnormality in the duodenum. This was biopsied. Hemoglobin trended downward, but plateaued. He was able to tolerate a diet with minimal symptoms. Preliminary read on the pathology report from the duodenal abnormality seem consistent with ulcer. With a stable hemoglobin, and improved symptoms, he was discharged home on proton pump inhibitor therapy and outpatient follow-up. Home Meds and New Rx's Prescriptions: New pantoprazole [Protonix] 40 mg tablet,delayed release (DR/EC) 40 mg PO BID 84 Days Qty: 90 4RF Continued latanoprost 0.005 % drops 1 drp ophthalmic (eye) QPM amlodipine 5 mg tablet 5 mg PO DAILY Qty: 90 3RF lisinopril 30 mg tablet 30 mg PO DAILY Qty: 90 1RF prochlorperazine maleate [Compazine] 10 mg tablet 10 mg PO TID PRN (Reason: nausea and vomiting) Qty: 30 0RF multivitamin Tablet 1 tab PO DAILY acetaminophen [Tylenol] 325 mg capsule 650 mg PO Q6H PRN (Reason: fever or pain) Qty: 30 0RF Discontinued ibuprofen 600 mg tablet 600 mg PO Q6H PRN (Reason: fever or pain) Qty: 30 0RF No Action sucralfate 1 gram tablet 1 g PO QACHS Qty: 120 0RF Discharge Instructions Instructions: Peptic ulcers, River Diet Additional Instructions: Connor, It was very nice meeting you in the hospital. Dr. Perez actually ordered your medications for discharge. She prefers you take the sucralfate every 6 hours, which is slightly different than the berakfast/lunch/dinner/bedtimes schedule that I mentioned, but for most patients, every 6 hours is pretty close to meals and bedtime anyway. She also wrote an instruction to follow up on the . I don't see a time set up in the office, but I will have them call you in the morning. She added the instructions below. If you need anything this weekend, just call the hospital desk operator and have them page me. F/u in clinic 05/09 w/ Dr. Perez -Continue with lifestyle modifications: no alcohol, tobacco products, Aspirin or NSAID's (ibuprofen, Motrin, Naprosyn, aleve, etc), soda pop/any carbonated beverages, caffeine (including tea & chocolate), and acidic foods, (tomatoes, citrus, onions, peppermints) spicy or fried/fatty foods. Do not lie down for 30 minutes after eating, and do not eat 2 hours prior to bedtime. Avoid wearing tight fitting clothing/ belts -soft diet: no beef/poor/raw fruits or vegetables. Try to eat multiple small meals through out the day. Protein shakes 1-2 daily. -activity as tolerated. -if any chest pain/SOB/dizzy spells, come to ED. Stools may be black for the next few days. Hopefully this will clear. -Please come to the clinic on for a blood count check. Stand Alone Forms: Anesthesia Discharge Inst., Rigo Heredia (DSU), Nursing Discharge Form Activity:: Activity as Tolerated Equipment/Supplies:: No Equipment Needed Diet:: see above Discharge Orders Discharge Orders: Discharge Order (Routine); Ordered 05/06/24 Ordered By: Darien Avendaño Discharge Data Discharge Date/Time-TO BE ENTERED AT DEPARTURE: 05/06/24 18:04 DS: Summary Time Spent with Patient providing and/or coordinating discharge services: Less than 30 minutes Status at Discharge Functional status at discharge: independent ambulation Overall status at discharge: patient is progressing back to baseline Mental Status: mental status grossly normal Speech and Movement: speech and movement normal Mood: congruent mood Affect: normal affect Quality:SDOH Health Related Social Needs: No Data to Display Exam Psych Mental Status: mental status grossly normal Speech and Movement: speech and movement normal Mood: congruent mood Affect: normal affect DS: Data Vitals/I&O Vitals and I&O: Vital Signs Temperature 98.8 F 05/06/24 14:49 Temperature Source Tympanic 05/06/24 14:49 Pulse 83 05/06/24 14:49 Pulse Rhythm Regular 05/03/24 17:08 Pulse 86 05/03/24 16:41 Respiratory Rate 17 05/06/24 14:49 Respiratory Effort Normal 05/03/24 17:08 Respiratory Depth Normal 05/03/24 17:08 Respiratory Pattern Normal 05/03/24 17:08 Blood Pressure 110/67 05/06/24 14:49 Blood Pressure Mean 91 05/03/24 16:41 Blood Pressure Position Sitting 05/03/24 10:03 Pulse Oximetry 99 05/06/24 14:49 Oxygen Delivery Method Room Air 05/06/24 14:49 Oxygen Flow Rate 0 05/06/24 14:49 Pain Level 0 05/06/24 14:49 Comment Pt arrived in pacu 05/03/24 16:25 Intake & Output 05/05/24 05/06/24 05/06/24 23:59 11:59 23:59 Intake Total 610 / 610 Balance 610 / 610 Intake: IV 610 / 610 Other: Comment per ptient voided in toilet pt independently voided on the toilet. Denies burning or pain with urinating, or foul smelling urine. Independent to the bathroom. Stool Size Small Stool Characteristics Hard Voiding Methods Toilet Toilet Data Completed and Pending Labs on day of discharge: Labs from last 24 hours 05/06/24 05/06/24 05/05/24 10:55 06:20 18:37 Hgb 9.2 L 9.3 L Hct 27.6 L 28.2 L Stool H. pylori Ag Pending [facility] All Active Problems Iron deficiency anemia due to chronic blood loss (Acute) Duodenal ulcer (Acute) BPH (benign prostatic hyperplasia) (Chronic) Acute on chronic blood loss anemia (Acute) Duodenitis (Acute) Upper GI bleeding (Acute) Abdominal discomfort (Acute) Vision changes (Acute) Skin lesions (Acute) Lightheadedness (Acute) HTN (hypertension) (Acute) Hyperlipidemia (Acute) Medical History Urinary urgency Right inguinal hernia Repaired 04/2020 Weight loss Dribbling urine Orthostatic dizziness Palpitations Had worked up with ZIO patch per Peritz 09/13/19 Per note:?The patient was in normal sinus rhythm for the majority of the recording. ?There were 9 episodes of supraventricular tachycardia with the longest lasting 19 beats. ?There were frequent (8.7%) isolated supraventricular ectopic beats. ?There were no episodes of ventricular tachycardia and rare (less than 1%) single ventricular ectopic beats. ?There were no episodes of atrial fibrillation no pauses greater than 3 seconds and no episodes of high degree heart block. ?Patient triggered events were associated with sinus rhythm as well as supraventricular ectopic beats. Surgical History History of tonsillectomy and adenoidectomy History of vasectomy Family History Mother , 89 Breast cancer Heart disease Father Stroke Sister No problems noted. Son Alcohol abuse now sober Depression Daughter No problems noted. Social History Smoking/Tobacco Use Status: Former Tobacco Use tobacco type: cigarettes Quit Date: 07/27/94 Tobacco: How many years used: 30 Second Hand Exposure: Yes (Not in a long long time) Smoking risk assessment performed?: Yes Alcohol Intake: never Drug use: Current Sobriety Substance use type: former substance user Date of last use: Over 50 years ago, marijuana, crack/cocaine and hallucinogens Adopted: No Caregiver/Support person: No Household members: significant other and other Details: one young adult, partners son Housing: house Number of Children: 2 number of grandchildren: 1 Communication Needs: None and Corrective Lenses Education Level: college Details: B.S. 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 Pets and animals: Yes Pets and animals: other Details: rabbits Sexually active: Yes Do you think of yourself as: straight/heterosexual Current gender identity: male What is your relationship status?: living with partner How often do you talk on the phone with friends or family?: once per week How often do you get together with friends or relatives?: once per week How often do you attend cheondoism or quaker services?: decline to answer Do you belong to any clubs or organized social groups?: yes Panel score (0-1 are the most socially isolated patients): 2 What type of physical activity do you participate in: weight lifting and yoga Duration: < 15 minutes/day Frequency: 1-2 times per week Humera/Zoroastrian: No preference Special humera needs: No Seatbelt use: always Drive intox or ride w/intox four horse hitch 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 Time Spent with Patient Time Spent with Patient: <45 minutes Time was spent: preparing to see the patient(eg.review tests), ordering medicat ions,tests, procedures, indepentently interpreting results, counseling the patient and care coordination
[2024-05-10 13:16] LABS: Helicobacter pylori Ag, Feces Positive (Negative)
== END 2024-05-06 18:04 | disposition home or self-care (01) | DRG 378 ==
LOC: ER 14:33 → SUR 15:28 → MS 16:57
PROVIDERS: Surgery; Admitting Provider Surgery; Emergency Provider Physician Assistant; PCP Nurse Practitioner Family; Visit Provider Surgery
PROC: 0DJ68ZZ Inspection of Stomach, Via Natural or Artificial Opening Endoscopic (ICD-10-PCS; CPT 43235; principal; 2024-05-03 14:30)
DX: K26.4 Chronic or unspecified duodenal ulcer with hemorrhage (principal); D62 Acute posthemorrhagic anemia; I10 Essential (primary) hypertension; E78.2 Mixed hyperlipidemia; N40.0 Benign prostatic hyperplasia without lower urinary tract symptoms; E78.5 Hyperlipidemia, unspecified; R10.9 Unspecified abdominal pain; K29.80 Duodenitis without bleeding
CPT/HCPCS: 43239; 36415; 80048; 80076; 83690; 86850; 86900; 86901; 87338; 88305; 93005; 96361; 96365; 96375; 99223; 99232; 99239; 99285; 74174; 82607; 82728; 82746; 83605; 83735; 85014; 85018; 85025; 85610; 85730; 88361; 93010; J0131; J0330; J1100; J1756; J1805; J2405; J2470; J2704

== ENCOUNTER 2024-05-09 09:43 | Outpatient (CLI) | payer MEDICARE, SELFPAY ==
[2024-05-09 13:55] LABS: Abs Immature Grans 0.03 10^3/uL (0.0-0.06); Absolute Basophil Count 0.03 10^3/uL (0.0-0.2); Absolute Eosinophil Count 0.25 10^3/uL (0.0-0.7); Absolute Lymphocyte Count 2.04 10^3/uL (1.2-3.4); Absolute Monocyte Count 0.73 10^3/uL (0.1-0.8); Absolute Neutrophil Count 5.81 10^3/uL (1.2-6.7); Basophils % 0.3 %; Eosinophils % 2.8 %; HCT 30.5 % (40.0-50.0); Immature Grans % 0.3 %; Lymphocytes % 22.9 %; MCH 31.4 pg (27.0-33.0); MCHC 32.8 % (32.0-36.0); MCV 96 fL (80-95); MPV 8.6 fL (8.0-11.0); Monocytes % 8.2 %; Neutrophils % 65.5 %; Platelet Count 285 10^3/uL (130-400); RBC 3.18 10^6/uL (4.36-5.78); RDW 13.3 % (11.8-14.1); WBC 8.89 10^3/uL (4.4-10.8)
[2024-05-09 14:22] LABS: Anion Gap 11.8 mmol/L (3-11); BUN 12 mg/dL (7-18); CO2 25.2 mmol/L (21.0-32.0); CREATININE 1.1 mg/dL (0.70-1.30); Calcium 9.3 mg/dL (8.5-10.1); Calculated LDL 125 mg/dL (<100); Chloride 107 mmol/L (98-107); Cholesterol 198 mg/dL (<200); Estimated GFR 70.88 (mL/min/1.73m2); Glucose 96 mg/dL (74-106); HDL Cholesterol 47 mg/dL (40-60); Potassium 3.8 mmol/L (3.5-5.1); Sodium 144 mmol/L (136-145); Triglyceride 131 mg/dL (<150)
[2024-05-09 15:00] LABS: Iron 20 ug/dL (65-175); Total Iron Binding Capacity 304 ug/dL (250-450); Transferrin Sat 7 % (20-55)
== END 2024-05-09 09:44 | disposition home or self-care (01) ==
PROVIDERS: PCP Nurse Practitioner Family; Visit Provider Surgery
DX: E78.2 Mixed hyperlipidemia; K29.80 Duodenitis without bleeding; D62 Acute posthemorrhagic anemia; K26.9 Duodenal ulcer, unspecified as acute or chronic, without hemorrhage or perforation; K31.89 Other diseases of stomach and duodenum; D50.9 Iron deficiency anemia, unspecified; I10 Essential (primary) hypertension; R18.8 Other ascites; R10.9 Unspecified abdominal pain; R11.2 Nausea with vomiting, unspecified
CPT/HCPCS: 36415; 80048; 80061; 83540; 83550; 85014; 85018; 85025

== ENCOUNTER 2024-05-16 02:14 | Outpatient (CLI) | payer MEDICARE, SELFPAY ==
[2024-05-16 13:41] LABS: HCT 30.5 % (40.0-50.0); HGB 9.8 g/dL (13.5-17.5)
== END 2024-05-16 02:15 | disposition home or self-care (01) ==
LOC: LBO 02:14
PROVIDERS: PCP Nurse Practitioner Family; Visit Provider Surgery
DX: I10 Essential (primary) hypertension (principal); E78.2 Mixed hyperlipidemia; K29.80 Duodenitis without bleeding; K26.9 Duodenal ulcer, unspecified as acute or chronic, without hemorrhage or perforation; R10.9 Unspecified abdominal pain; D62 Acute posthemorrhagic anemia
CPT/HCPCS: 36415; 85014; 85018

== ENCOUNTER 2024-06-07 07:07 | Day surgery (SDC) | payer MEDICARE, SELFPAY ==
--- NOTE | 2024-06-06 20:49 | PDOC.DSDIS_ITS ---
Date of service: 06/07/24 Time of Service: 09:07 Discharge Plan Disposition Patient Disposition: Home Condition: Good Discharge Details Reason For Visit: egd Attending Provider: Mariana Perez Primary Care Provider: Siomara Mckeon Home Meds and New Rx's Prescriptions: No Action latanoprost 0.005 % drops 1 drp ophthalmic (eye) QPM amlodipine 5 mg tablet 5 mg PO DAILY Qty: 90 3RF lisinopril 30 mg tablet 30 mg PO DAILY Qty: 90 1RF sucralfate 1 gram tablet 1 g PO QACHS Qty: 120 2RF pantoprazole [Protonix] 40 mg tablet,delayed release (DR/EC) 40 mg PO BID 84 Days Qty: 90 4RF multivitamin Tablet 1 tab PO DAILY acetaminophen [Tylenol] 325 mg capsule 650 mg PO Q6H PRN (Reason: fever or pain) Qty: 30 0RF Discharge Instructions Additional Instructions: Post EGD Instruction ?You had anesthesia for your EGD/stomach scope today.? For your safety, please do the following for the next twenty-four (24) hours: Do Not operate a motor vehicle (car, truck, motorcycle, etc.) Do Not drink alcoholic beverages or use any recreational drugs for the first 24 hours or while taking pain medications. The medications in your body may have a reaction that can be dangerous. Do Not make any important decisions or sign any important papers You have just had a gastroscopy (EGD) or upper GI tract examination. It is important for your smooth recovery that you carefully follow the recommendations below. Do not hesitate to call if any questions should arise about your anesthesia, condition, or care. -Symptoms you may experience during the next 24 hours: ?1. Mild abdominal pain or excessive gas or a bloated feeling which improves with rest, liquids, eating? slightly, and walking as tolerated. 2. Drowsiness and/or forgetfulness because of the medications you were given. 3. A sore throat which you can treat with throat lozenges or by gargling with salt water 4-5 times a day. 4. Redness at the site of your IV which you can treat with warm compresses. SPECIAL INSTRUCTIONS: 1. You may resume your previous diet in one hour. We recommend a light meal to start, then progress as tolerated. 2. Restart regular medications in one hour. 3. No aspirin or non-steroidal containing medication for 24 hrs. 4. No lifting over 20 pounds or strenuous activity for the first 24 hours after your procedure. After 24 hours there are no restrictions on your activity, but you may feel fatigued for a few days. -Findings: ulcer resolved -Medications: continue protonix once a day ok to stop carafate -Continue to follow lifestyle modifications: No alcohol, tobacco products, Aspirin or NSAID's (ibuprofen, Motrin, Naprosyn, aleve, etc).? Try to limit/avoid:? soda pop/any carbonated beverages, caffeine (including tea & chocolate), and acidic foods, (tomatoes, citrus, onions, peppermints) spicy or fried/fatty foods. Do not lie down for 30 minutes after eating, and do not eat 2 hours prior to bedtime. Avoid wearing tight fitting clothing/ belts. Follow up: -My office will send a letter with the results of your biopsy?s in 2-3wks time. Call the office at [phone] (Office) or [phone] (Hospital), or go to the ER right away if you notice any of the followin. Vomiting blood and /or ?coffee ground? material. ?2. Worsening of abdominal pain or cramping. ?3. Trouble with breathing, cough, and/or fever (temperature above 101.5 F). 4. Increasing pain with swallowing. ?5. Chest pain. 6. Any new symptoms. 7. Worsening of the redness at the IV site Activity:: see above Diet:: see above Discharge Orders Discharge Orders: Discharge Order (Routine); Ordered 06/07/24 Ordered By: Mariana Perez DS: Diagnosis Discharge Diagnosis (1) Duodenitis: Status: Acute (2) Duodenal ulcer: Status: Acute (3) Acute on chronic blood loss anemia: Status: Acute (4) H pylori ulcer: Status: Acute Asessment and Plan: Patient is seen and examined after they are endoscopy.? Patient has minimal sore throat.? They have been able to tolerate liquids.? They do not have any nausea vomiting.? They are not having any chest pain or shortness of breath.? They have been able to pass gas and are not having any abdominal pain or distention.? They have not vomited any blood.? The vital signs have been stable-see nursing notes. We discussed findings on their endoscopy. We reviewed the importance of lifestyle modification-see discharge instructions We reviewed any new medications that the patient may be prescribed-see discharge instructions Patient will either be sent a letter with the biopsy results or follow-up in the office-see discharge instructions. Patient was given explicit instructions to follow-up regarding post endoscopy- refer to discharge Patient verbalized understanding and discharged in stable and satisfactory condition.? See nursing notes.
--- NOTE | 2024-06-06 20:53 | W.PM.ENDDOP ---
Date of service: 06/07/24 Time of Service: 09:10 Endoscopy Report DATE OF PROCEDURE: 06/07/24 PRE-OP DIAGNOSIS: duodenal ulcer/Fe defn anemia SURGEON: Mariana Perez ANESTHESIA TYPE: General:No Airway ESTIMATED BLOOD LOSS: 1 PATHOLOGY: other COMPLICATIONS: None DISPOSITION: same day PROCEDURE DESCRIPTION: Informed consent was obtained from the pt; explaining the benefits and Risks: bleeding, infections, perforations {which could require surgery or antibiotics and prolonged hospital stay}, or ostomy, and complications of anaesthesia, basil aspiration). The patient was take to the procedure room and placed in a supine position. Monitors were applied and a time out was done. The patients name, date of , procedure type, allergies to medications and metal in their body was reviewed. A bite block was placed and the patient was sedated. Once sedated and comfortable an Olympus gastroscope (see RN notes for scope #) was advanced through the oropharynx which was grossly normal, and passed into the esophagus. The proximal and mid-esophagus were normal. The distal esophagus does not show any: dilation/strictures/varices/erosions or ulcers/bleeding noted. The scope was advanced into the stomach and through the pylorus into The duodenum; was noted to be normal. Biopsies were done of the duodenal bulb. All symptoms of ulcers ulceration have resolved at this time. There is no outlet obstruction. The scope was retracted back into the stomach and biopsies were taken of the antrum. There were no gastritis/gastropathy/ ulcers/masses noted. The scope was retroflexed. The cardia and fundus were noted to be normal. The scope was retracted back into the esophagus and biopsies were done of the GE junction (in all 4 quadrants) and distal esophagus (2cm above the GE junction) to rule out Melendez's. All specimens are retrieved and no bleeding was noted. The Z line was regular. The scope was removed and the patient was woken up and taken back to [facility] in stable condition.
[2024-06-07 07:50] VITALS: BP 158/76; PULSE 70; RESP 16; TEMP 36.5; O2SAT 99
[2024-06-07] MEDS: Normal Saline Flush 10 ML SYR IV (08:10)
--- NOTE | 2024-06-07 08:12 | ANES.PREOP_ITS ---
General Info Date of Service Date Performed: 06/07/24 Height: 5 ft 10 in Weight: 75.6 kg Body Mass Index (BMI): 23.9 Surgical Procedure: Operation Date: 06/07/24 08:35 Proposed Procedure Side Surgeon p Gastroscopy Mariana Perez, DO Meds Allergies and Home Medications Allergies Allergy/AdvReac Type Severity Reaction Status Date / Time No Known Allergies Allergy Verified 06/07/24 07:44 Home Medication ?Medication ?Instructions ?Recorded multivitamin 1 tab PO DAILY 05/21/20 acetaminophen 325 mg capsule 650 mg (2 x 325 mg) PO Q6H PRN 05/23/20 (Tylenol) fever or pain #30 caps latanoprost 0.005 % eye drops 1 drp ophthalmic (eye) QPM 01/28/22 amlodipine 5 mg tablet 5 mg PO DAILY #90 tabs 03/07/24 lisinopril 30 mg tablet 30 mg PO DAILY #90 tabs 03/07/24 pantoprazole 40 mg tablet,delayed 40 mg PO BID 12 weeks #90 tabs 05/03/24 release (Protonix) sucralfate 1 gram tablet 1 g PO QACHS #120 tabs 05/09/24 Current Visit Medications: Current Medications Generic Name Dose Route Start Last Admin Trade Name Freq PRN Reason Stop Dose Admin Hyoscyamine Sulfate 0.125 mg 06/07/24 08:47 Hyoscyamine 0.125 Mg Sl/Oral/Chew SL 07/07/24 08:46 DIRECTED PRN IV Miscellaneous Supplies 1 each 06/07/24 06:00 Iv Access IV 07/06/24 23:59 DIRECTED MELISSA Ondansetron HCl 4 mg 06/07/24 08:47 Ondansetron 4 Mg/2 Ml Vial IVP 07/07/24 08:46 Q4H PRN PRN Nausea / Vomiting Sodium Chloride 0 ml 06/07/24 06:00 Normal Saline Flush 10 Ml Syr IV 07/06/24 23:59 PRN PRN Sodium Chloride 0 ml 06/07/24 06:00 Normal Saline 10 Ml Vial IJ 07/06/24 23:59 DIRECTED PRN Sterile Water 0 ml 06/07/24 06:00 Water,Injection,Sterile 10 Ml Vial IJ 07/06/24 23:59 DIRECTED PRN PFSH Active Problems Active Problems: Problem Status Onset Code H pylori ulcer Acute K27.9, B96.81 Iron deficiency anemia due to chronic blood loss Acute D50.0 Duodenal ulcer Acute K26.9 BPH (benign prostatic hyperplasia) Chronic N40.0 Acute on chronic blood loss anemia Acute D62 Duodenitis Acute K29.80 Upper GI bleeding Acute K92.2 Abdominal discomfort Acute R10.9 Vision changes Acute H53.9 Skin lesions Acute L98.9 Lightheadedness Acute R42 HTN (hypertension) Acute I10 Hyperlipidemia Acute E78.5 Medical History Medical History Urinary urgency Right inguinal hernia Repaired 04/2020 Dribbling urine Orthostatic dizziness Palpitations Had worked up with ZIO patch per Peritz 09/13/19 Per note:?The patient was in normal sinus rhythm for the majority of the recording. ?There were 9 episodes of supraventricular tachycardia with the longest lasting 19 beats. ?There were frequent (8.7%) isolated supraventricular ectopic beats. ?There were no episodes of ventricular tachycardia and rare (less than 1%) single ventricular ectopic beats. ?There were no episodes of atrial fibrillation no pauses greater than 3 seconds and no episodes of high degree heart block. ?Patient triggered events were associated with sinus rhythm as well as supraventricular ectopic beats. Surgical History Surgical History History of esophagogastroduodenoscopy (EGD) History of tonsillectomy and adenoidectomy History of vasectomy Tobacco Smoking/Tobacco Use Status: Former Tobacco Use Passive smoking exposure: Yes (As a child) Second hand exposure: Yes (Not in a long long time) Alcohol Alcohol Intake: never Substance Use Substance use: Never Substance use type: does not use and hallucinogens Vital Signs and Lab Results Vital Signs Most Recent Vital Signs in EMR: Most Recent Vital Signs Temp Pulse Resp BP Pulse Ox 36.5 C 70 16 158/76 H 99 06/07/24 07:50 06/07/24 07:50 06/07/24 07:50 06/07/24 07:50 06/07/24 07:50 Lab Results 06/07/24 09:00 Blood Type / Crossmatch: 2 No Data to Display Complete Blood Count: 2 White Blood Count 8.89 10^3/uL (4.4-10.8) 05/09/24 13:44 Red Blood Count 3.18 10^6/uL (4.36-5.78) L 05/09/24 13:44 Hemoglobin 9.8 g/dL (13.5-17.5) L 05/16/24 13:23 Hematocrit 30.5 % (40.0-50.0) L 05/16/24 13:23 Platelet Count 285 10^3/uL (130-400) 05/09/24 13:44 Complete Metabolic Panel: 2 Sodium 144 mmol/L (136-145) 05/09/24 13:44 Potassium 3.8 mmol/L (3.5-5.1) 05/09/24 13:44 Chloride 107 mmol/L (98-107) 05/09/24 13:44 Carbon Dioxide 25.2 mmol/L (21.0-32.0) 05/09/24 13:44 BUN 12 mg/dL (7-18) 05/09/24 13:44 Creatinine 1.1 mg/dL (0.70-1.30) 05/09/24 13:44 Est GFR (CKD-EPI 2020) 70.88 (mL/min/1.73m2) 05/09/24 13:44 Calcium 9.3 mg/dL (8.5-10.1) 05/09/24 13:44 Glucose 96 mg/dL (74-106) 05/09/24 13:44 Liver Function Panel: 2 No Data to Display Coagulation Panel: 2 No Data to Display Cardiac Panel: 2 No Data to Display Arterial Blood Gas: 2 No Data to Display Venous Blood Gas: 2 No Data to Display Pancreas Panel: 2 No Data to Display Thyroid Panel: 2 No Data to Display Infectious Disease: 2 No Data to Display Blood Cultures: 2 No Data to Display Toxicology Panel: 2 No Data to Display Imaging and Studies Imaging and Studies Study information below may be from another EMR and interpreted by another provider. Please see original notes in EMR for more complete details. EKG Summary: 05/03/24: Exam: Resting ECG Reason for Exam: pre-op Patient Location: E HR:85 bpm ECG Measurements Heart Rate 85 AXIS DC 124 P 31 QRSd 94 QRS 12 QT 389 T63 QTc 463 Conclusion Sinus rhythm...normal P axis, V-rate 60- 99 Atrial premature complexes...SV complexes w/ short R-R intvls Otherwise normal ECG Anesthesia Assessment and Plan Anesthesia History Personal History: No History of Anesthesia Complications Family History: No Family History of Anesthesia Complications Exercise Tolerance Exercise Tolerance: Metabolic Equivalents>4 Pertinent Negatives Pertinent Negatives: No Major Cardiovascular Symptoms or Complaints and No Major Pulmonary Symptoms or Complaints Cardiac & Pulmonary Exam Cardiac Exam: Normal S1/S2 Heart Sounds Pulmonary Exam: Clear Bilateral Breath Sounds Implantable Cardiac Device Does patient have a Pacemaker or an ICD?: No Airway Exam Known Difficult Airway: No Mallampati Class: 2 Mouth Opening: Normal (> 3cm) Thyromental Distance: Greater than 3 cm Neck Range of Motion: Full ROM Neck Circumference: Normal Teeth Condition: Normal Dentition ASA Classification ASA Score: ASA 2 Emergency Case?: No NPO Status NPO Status: NPO Clears >2 hours, Solids >8 hours Anesthesia Plan Resuscitation Status: Full Code Anesthesia Technique: General Anesthesia Airway Planned: Natural Airway Monitors Used: Standard Monitors
[2024-06-07 08:15] VITALS: BMI 23.9
--- NOTE | 2024-06-07 08:41 | STOM_PTH ---
PATIENT: Fermin Renee LOC: [facility] U#:[id number] AGE/SX: 73/M ROOM: RE06/07/[address]: Mariana Perez : 1950 BED: DIS: 06/07/2024 SPEC #: [id number] RECD: 06/07/24 12:42 STATUS: ANDREW RE #: [id number] JUANITA: 06/07/24 08:[address]: Mariana Perez DEPT: Surgical Specimen RECD BY: Kimberly Faulkner ENTERED: 06/07/24 12:43 SP TYPE: STOMACH OTHR DR: Siomara Mckeon, [employer] Tissues: 1 - BIOPSY BOWEL 2 - STOMACH BIOPSY Procedures: GROSS AND MICRO LEVEL 4 Comments: [id number]
[2024-06-07 08:56] VITALS: BP 121/69; PULSE 88; RESP 16; TEMP 36.5; O2SAT 97
[2024-06-07 09:20] VITALS: BP 134/75; PULSE 71; RESP 16; TEMP 36.2; O2SAT 98
[2024-06-07 09:33] LABS: HCT 32.3 % (40.0-50.0); HGB 10.7 g/dL (13.5-17.5)
--- NOTE | 2024-06-07 09:36 | W.ANESPOSTOP ---
Postoperative Evaluation Date, Time and Location Date Performed: 06/07/24 Time Performed: 09:36 Patient Location: Day Surgery Unit Vital Signs Most Recent Imported Vital Signs: Most Recent Vital Signs Temp Pulse Resp BP Pulse Ox 36.5 C 88 16 121/69 97 06/07/24 08:56 06/07/24 08:56 06/07/24 08:56 06/07/24 08:56 06/07/24 08:56 Pain Score Most Recent Pain Score: Most Recent Pain Score Pain Level 0 06/07/24 08:56 Assessment Mental Status: Awake (Alert & Oriented to Patient Baseline) Airway and Respiratory Function: Patent airway with normal (patient baseline) respiratory exam Cardiovascular Function: Hemodynamically Stable Hydration Status: Adequately Hydrated Nausea & Vomiting: No Nausea or Vomiting Pain: Pt. Denies Any Pain Peripheral Nerve Block: Patient did not receive a nerve block
[2024-06-07 10:01] LABS: Ferritin 21 ng/mL (26-388)
== END 2024-06-07 10:10 | disposition home or self-care (01) ==
PROVIDERS: PCP Nurse Practitioner Family; Visit Provider Surgery
PROC: 0DJ68ZZ Inspection of Stomach, Via Natural or Artificial Opening Endoscopic (ICD-10-PCS; CPT 43235; principal; 2024-06-07 08:30)
DX: K29.80 Duodenitis without bleeding (principal); K26.9 Duodenal ulcer, unspecified as acute or chronic, without hemorrhage or perforation; B96.81 Helicobacter pylori [H. pylori] as the cause of diseases classified elsewhere; I10 Essential (primary) hypertension; D50.0 Iron deficiency anemia secondary to blood loss (chronic); K29.70 Gastritis, unspecified, without bleeding
CPT/HCPCS: 43239; 88305; 82728; 85014; 85018; J2003; J2704

== ENCOUNTER 2024-06-20 02:00 | Outpatient (RCR) | payer MEDICARE, SELFPAY ==
[2024-06-13] MEDS: IRON SUCROSE COMPLEX 200 MG in Normal Saline 100 ML 440 MG IVPB (13:47)
[2024-06-13] MEDS: Normal Saline Flush 10 ML SYR IVP (13:47)
[2024-06-20] MEDS: Normal Saline Flush 10 ML SYR IVP (13:44)
[2024-06-20] MEDS: IRON SUCROSE COMPLEX 200 MG in Normal Saline 100 ML 440 MG IVPB (13:44)
== END 2024-06-25 23:59 | disposition home or self-care (01) ==
LOC: INF 02:00
PROVIDERS: PCP Nurse Practitioner Family; Visit Provider Surgery
DX: D50.0 Iron deficiency anemia secondary to blood loss (chronic)
CPT/HCPCS: 96365; J1756

== ENCOUNTER 2024-06-27 03:09 | Outpatient (RCR) | payer MEDICARE, SELFPAY ==
[2024-06-27] MEDS: IRON SUCROSE COMPLEX 200 MG in Normal Saline 100 ML 440 MG IVPB (13:57)
[2024-06-27] MEDS: Normal Saline Flush 10 ML SYR IVP (13:57)
== END 2024-07-26 23:59 | disposition home or self-care (01) ==
LOC: INF 03:09
PROVIDERS: PCP Nurse Practitioner Family; Visit Provider Surgery
DX: D50.0 Iron deficiency anemia secondary to blood loss (chronic) (principal)
CPT/HCPCS: 96365; J1756

== ENCOUNTER → 2024-07-25 13:27 | Outpatient (BNVA) | payer MEDICARE, SELFPAY | PROVIDERS: PCP Nurse Practitioner Family; Referring Provider Nurse Practitioner Family; Visit Provider Surgery | DX: K29.80 Duodenitis without bleeding | CPT/HCPCS: 99213 ==

== ENCOUNTER 2024-08-04 04:58 | Outpatient (CLI) | payer MEDICARE, SELFPAY ==
[2024-08-04 14:18] LABS: Abs Immature Grans 0.02 10^3/uL (0.0-0.06); Absolute Basophil Count 0.07 10^3/uL (0.0-0.2); Absolute Eosinophil Count 0.34 10^3/uL (0.0-0.7); Absolute Lymphocyte Count 2.38 10^3/uL (1.2-3.4); Absolute Monocyte Count 0.61 10^3/uL (0.1-0.8); Absolute Neutrophil Count 4.73 10^3/uL (1.2-6.7); Basophils % 0.9 %; Eosinophils % 4.2 %; HCT 42.4 % (40.0-50.0); Immature Grans % 0.2 %; Lymphocytes % 29.2 %; MCH 29.4 pg (27.0-33.0); MCV 89 fL (80-95); MPV 8.5 fL (8.0-11.0); Monocytes % 7.5 %; Platelet Count 215 10^3/uL (130-400); RBC 4.76 10^6/uL (4.36-5.78); RDW 14.5 % (11.8-14.1); RDW-SD 47.2 fL; WBC 8.15 10^3/uL (4.4-10.8)
[2024-08-04 14:27] LABS: Magnesium 2.1 mg/dL (1.8-2.4)
[2024-08-04 14:44] LABS: CREATININE 1.1 mg/dL (0.70-1.30); Estimated GFR 70.44 (mL/min/1.73m2); Ferritin 40 ng/mL (26-388)
== END 2024-08-04 04:59 | disposition home or self-care (01) ==
LOC: LBO 04:58
PROVIDERS: PCP Nurse Practitioner Family; Visit Provider Surgery
DX: R10.9 Unspecified abdominal pain; R11.2 Nausea with vomiting, unspecified; D50.0 Iron deficiency anemia secondary to blood loss (chronic); K29.80 Duodenitis without bleeding; K27.9 Peptic ulcer, site unspecified, unspecified as acute or chronic, without hemorrhage or perforation; B96.81 Helicobacter pylori [H. pylori] as the cause of diseases classified elsewhere
CPT/HCPCS: 36415; 82565; 82728; 83735; 85014; 85018; 85025

== ENCOUNTER 2025-01-19 13:32 | Emergency (ER) | payer MEDICARE, SELFPAY ==
[2025-01-19 13:45] VITALS: BP 146/75; PULSE 95; RESP 18; TEMP 36.9; O2SAT 98
[2025-01-19 13:50] VITALS: BP 146/75; PULSE 95; RESP 18; TEMP 36.9; O2SAT 98
--- NOTE | 2025-01-19 13:53 | ED.GENADUL_ITS ---
Discharge Plan Disposition Patient Disposition: Home Condition: Stable Discharge Details Clinical Impression: Urinary tract infection Primary Care Provider: Siomara Mckeon ED Provider: Ben Alston Home Meds and New Rx's Prescriptions: New cefpodoxime 200 mg tablet 200 mg PO BID 10 Days Qty: 20 0RF Rx Instructions: must administer with a meal/food Continued latanoprost 0.005 % drops 1 drp ophthalmic (eye) QPM amlodipine 5 mg tablet 5 mg PO DAILY Qty: 90 3RF lisinopril 30 mg tablet 30 mg PO DAILY Qty: 90 1RF pantoprazole [Protonix] 40 mg tablet,delayed release (DR/EC) 40 mg PO .QOD Qty: 90 12RF Rx Instructions: 12/27/24 Weaning off medication. See task. -hb pantoprazole 20 mg tablet,delayed release (DR/EC) 20 mg PO DAILY Qty: 60 0RF Rx Instructions: Week 1-2 Alternate 40mg with 20mg QOD. Week 3-4 Take 20mg daily Week 5-6 Take 20mg QOD then stop multivitamin Tablet 1 tab PO DAILY acetaminophen [Tylenol] 325 mg capsule 650 mg PO Q6H PRN (Reason: fever or pain) Qty: 30 0RF Discharge Instructions Instructions: Cefpodoxime, Urinary Tract Infection, Adult ED Additional Instructions: You were seen in the emergency department for your dysuria, your urine shows a urinary tract infection and I have sent antibiotics to your pharmacy, please take these as directed, drink lots of water and stay well-hydrated, take Tylenol and ibuprofen as needed for pain and discomfort, you can purchase [id number] AZO to aid with symptomatic discomfort in the urethra, this will turn your urine orange, please follow-up with your primary care provider, please return to the emergency department for failure to improve especially with worsening fever and flank pain or weakness and nausea. Referrals: Siomara Mckeon NP [Primary Care Provider, Medicine] Discharge Data Discharge Date/Time-TO BE ENTERED AT DEPARTURE: 01/19/25 15:08 HPI General Date/Time Provider Initiated Documentation: 01/19/25 13:53 . HPI Narrative: 74 year-old male presents to ED today by POV/ambulating with a chief complaint of dysuria, burning at urethral meatus with onset for the past week. Quality described as burning, frequency of small amounts of urine, no radiation to fever, flank pain, nausea, weakness, hematuria, severe abdominal pain, new sexual partners, any sexual activity. Severity is described as moderate. Palliating factors include nothing specific. Provoking factors include nothing specific. Events leading up to the incident/Associated Symptoms: Patient has had history of UTI. Patient not anticoagulated. Related Data Home Medications ?Medication ?Instructions ?Recorded ?Confirmed multivitamin 1 tab PO DAILY 05/21/20/01/18 acetaminophen 325 mg capsule 650 mg (2 x 325 mg) PO Q6 H PRN 05/23/20 01/19/25 (Tylenol) fever or pain #30 caps latanoprost 0.005 % eye drops 1 drp ophthalmic (eye) Q PM 01/28/22 01/19/25 amlodipine 5 mg tablet 5 mg PO DAILY #90 tabs 03/0701/19/25 lisinopril 30 mg tablet 30 mg PO DAILY #90 tabs 03/0 01/1801/19/25 pantoprazole 40 mg tablet,delayed 40 mg PO .QOD #90 ta bs 12/27/24 01/19/25 release (Protonix) pantoprazole 20 mg tablet,delayed 20 mg PO DAILY #60 t abs 01/10/25 01/19/25 release cefpodoxime 200 mg tablet 200 mg PO BID 10 days #20 ta bs 01/19/25 Previous Rx's ?Medication ?Instructions ?Recorded acetaminophen 325 mg capsule 650 mg (2 x 325 mg) PO Q6 H PRN 05/23/20 (Tylenol) fever or pain #30 caps amlodipine 5 mg tablet 5 mg PO DAILY #90 tabs 03/07 lisinopril 30 mg tablet 30 mg PO DAILY #90 tabs 030 01/18 pantoprazole 40 mg tablet,delayed 40 mg PO .QOD #90 ta bs 12/27/24 release (Protonix) pantoprazole 20 mg tablet,delayed 20 mg PO DAILY #60 t abs 01/10/25 release cefpodoxime 200 mg tablet 200 mg PO BID 10 days #20 ta bs 01/19/25 Allergies Allergy/AdvReac Type Severity Reaction Status Date / Time No Known Allergies Allergy Verified 01/19/25 13:51 General Stated Complaint: Urinary RYAN: 4 Review of Systems All systems reviewed & are unremarkable except as noted in HPI and below Exam Narrative Exam Narrative: GENERAL APPEARANCE: Well-nourished, non-toxic, awake and alert, atraumatic, no acute distress. SKIN: Warm, pink, dry, intact, without rashes/lesions/ulcerations. HEAD: Normocephalic, atraumatic, normal hair distribution for gender/age. EYES: Normal conjunctiva, no exudates on lids/lashes. ENT: Nares patent, no circumoral cyanosis, no facial swelling NECK: Supple, trachea midline, painless cervical ROM. LUNGS/CHEST: Non-labored respirations, normal A/P diameter, symmetrical expansion, no chest wall deformity HEART (CV/PV): No peripheral edema, no JVD. ABDOMEN: Soft, non-distended, no guarding, mild suprapubic discomfort, no CVA tenderness to percussion bilaterally. MSK: Normal ROM, no swelling/deformity to bilateral UEs or LEs, moving all extremities without weakness, no cyanosis, spine midline without tenderness, nor mal curvature. NEURO: Mental Status AAOx4 - alert to person, place, time, events No facial droop, no forehead involvement. Motor: No focal weakness - strength 5/5 in bilateral UEs and LEs, proximal and distal, symmetric. Sensory: sensation intact to light touch globally. Gait normal: patient ambulated without ataxia into ED room. PSYCH: euthymic, cooperative, pleasant, appropriate speech Course Vital Signs Vital signs: Vital Signs Temperature 36.9 C 01/19/25 13:45 Pulse 95 H 01/19/25 13:45 Respiratory Rate 18 01/19/25 13:45 Blood Pressure 146/75 H 01/19/25 13:45 Pulse Oximetry 98 01/19/25 13:45 Temperature 36.9 C 01/19/25 13:50 Pulse 95 H 01/19/25 13:50 Respiratory Rate 18 01/19/25 13:50 Blood Pressure 146/75 H 01/19/25 13:50 Pulse Oximetry 98 01/19/25 13:50 Pain Level 4 01/19/25 13:50 Medical Decision Making This dictation utilizes [id number] dictation software and may contain unedited grammatical errors. 74 year-old male presents to ED today by POV/ambulating with a chief complaint of dysuria, burning at urethral meatus with onset for the past week. Quality described as burning, frequency of small amounts of urine, no radiation to fever, flank pain, nausea, weakness, hematuria, severe abdominal pain, new sexual partners, any sexual activity. Severity is described as moderate. Palliating factors include nothing specific. Provoking factors include nothing specific. Events leading up to the incident/Associated Symptoms: Patient has had history of UTI. Patients' medical history: Noncontributory. Family and social history: Noncontributory. Pertinent exam findings / vital signs include mild suprapubic discomfort, no CVA tenderness to percussion bilaterally, vital stable. Differential / pathologies of concern include UTI, pyelonephritis, unlikely STI. Diagnostic studies of: -UA - shows UTI Interventions of: -Rx for cefpodoxime. ED Course/Assessment/Plan: 74-year-old male is having mild dysuria, no hematuria, no flank pain or fever, UA shows UTI and he was Rx cefpodoxime, strict return criteria for worsening flank pain, fever, nausea. Findings not consistent with obstructive uropathy, urinary retention, sepsis. Disposition of Urinary Tract Infection. Patient verbalized understanding of the plan and return to ED criteria and engaged in shared decision making. Medical Records Medical records reviewed: Yes I reviewed the patient's medical records. Lab Data Lab results reviewed: Yes I reviewed the patient's lab results. Labs: 01/19/25 13:58 Urine Culture - pending Laboratory Tests Range/Units 01/19/25 13:58 Urine Color (Yellow) Yellow Urine Clarity (Clear) Cloudy Urine pH (5-8) 5.5 Ur Specific [place] (1.005-1.025) 1.020 Urine Protein (Neg-Trace) mg/dL 100 H Urine Ketones (Negative) mg/dL Negative Urine Blood (Negative) Large H Urine Nitrite (Negative) Positive H Urine Bilirubin (Negative) Negative Urine Urobilinogen (Up to 0.2) mg/dL 0.2 Ur Leukocyte Esterase (Negative) Moderate H Urine RBC (0-2) HPF >50 H Urine WBC (0-5) HPF >50 H Ur Epithelial Cells Not Applicable Urine Crystals Not Applicable Urine Bacteria (Negative) HPF Urine Mucus Not Applicable Ur Culture Indicated? Yes Urine Glucose (Negative) mg/dL Negative PFSH All Active Problems (Updated 01/19/25 @ 14:43 by GRAYSON Smith) Urinary tract infection (Acute) H pylori ulcer (Acute) Iron deficiency anemia due to chronic blood loss (Acute) Duodenal ulcer (Acute) BPH (benign prostatic hyperplasia) (Chronic) Acute on chronic blood loss anemia (Acute) Duodenitis (Acute) Upper GI bleeding (Acute) Abdominal discomfort (Acute) Vision changes (Acute) Skin lesions (Acute) Lightheadedness (Acute) HTN (hypertension) (Acute) Hyperlipidemia (Acute) Medical History (Updated 01/19/25 @ 14:43 by GRAYSON Smith) Urinary urgency Right inguinal hernia Repaired 04/2020 Dribbling urine Orthostatic dizziness Palpitations Had worked up with ZIO patch per Peritz 09/13/19 Per note:?The patient was in normal sinus rhythm for the majority of the recording. ?There were 9 episodes of supraventricular tachycardia with the longest lasting 19 beats. ?There were frequent (8.7%) isolated supraventricular ectopic beats. ?There were no episodes of ventricular tachycardia and rare (less than 1%) single ventricular ectopic beats. ?There were no episodes of atrial fibrillation no pauses greater than 3 seconds and no episodes of high degree heart block. ?Patient triggered events were associated with sinus rhythm as well as supraventricular ectopic beats. Surgical History (Updated 06/07/24 @ 13:08 by Stephenie Delaney) History of esophagogastroduodenoscopy (EGD) (~05/2024) History of tonsillectomy and adenoidectomy History of vasectomy Family History Mother , 89 Breast cancer Heart disease Father Stroke Sister No problems noted. Son Alcohol abuse now sober Depression Daughter No problems noted. Social History Smoking/Tobacco Use Status: Former Tobacco Use tobacco type: cigarettes Quit Date: 07/27/94 Tobacco: How many years used: 30 Second Hand Exposure: Yes (Not in a long long time) Smoking risk assessment performed?: Yes Alcohol Intake: never Drug use: Never Substance use type: does not use Adopted: No Caregiver/Support person: No Household members: significant other and other Details: one young adult, partners son Housing: house Number of Children: 2 number of grandchildren: 1 Communication Needs: None and Corrective Lenses Education Level: college Details: B.S. 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 Pets and animals: Yes Pets and animals: other Details: rabbits Sexually active: Yes Do you think of yourself as: straight/heterosexual Current gender identity: male What is your relationship status?: living with partner How often do you talk on the phone with friends or family?: once per week How often do you get together with friends or relatives?: once per week How often do you attend religious or roman catholic services?: decline to answer Do you belong to any clubs or organized social groups?: yes Panel score (0-1 are the most socially isolated patients): 2 What type of physical activity do you participate in: weight lifting and yoga Duration: < 15 minutes/day Frequency: 1-2 times per week Humera/Denominational: No preference Special humera needs: No Seatbelt use: always Drive intox or ride w/intox haul 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 Additional Social history: [employer]
[2025-01-19 14:22] LABS: Bilirubin Negative (Negative); Blood Large (Negative); Clarity Cloudy (Clear); Glucose Negative (Negative); Ketones Negative (Negative); Leukocyte Esterase Moderate (Negative); Nitrite Positive (Negative); Urobilinogen 0.2 mg/dL (Up to 0.2); pH 5.5 (5-8)
[2025-01-19 14:30] LABS: RBC >50 HPF (0-2); WBC >50 HPF (0-5)
[2025-01-19 14:31] LABS: C & S Indicated? Yes
== END 2025-01-19 15:08 | disposition home or self-care (01) ==
PROVIDERS: Emergency Provider Physician Assistant; PCP Nurse Practitioner Family
DX: N39.0 Urinary tract infection, site not specified (principal); I10 Essential (primary) hypertension; E78.5 Hyperlipidemia, unspecified; Z87.891 Personal history of nicotine dependence
CPT/HCPCS: 87077; 99283; 81003; 81015; 87086; 87186

== ENCOUNTER 2025-03-01 01:28 | Outpatient (CLI) | payer MEDICARE, SELFPAY ==
--- NOTE | 2025-03-01 07:15 | DI.US_ITS ---
Exam(s) US HERNIA EXAM: US HERNIA CLINICAL HISTORY: left groin pain,r10.32. TECHNIQUE: Ultrasound was performed using standard protocol. COMPARISON: CT CT ABDOMEN PELVIS CTA from 05/03/2024 FINDINGS: Sonographic assessment utilizing grayscale and color Doppler imaging was performed and targeted to the area of clinical concern. There is a fat containing left inguinal hernia. The hernia neck is 0.8 cm. The hernia sac measures approximately 3.2 x 1.3 cm. IMPRESSION: Fat containing left inguinal hernia as described above. DATA REPOSITORY:
== END 2025-03-01 01:48 ==
LOC: DI 01:28
PROVIDERS: PCP Nurse Practitioner Family; Visit Provider Nurse Practitioner Family
DX: K40.90 Unilateral inguinal hernia, without obstruction or gangrene, not specified as recurrent (principal)
CPT/HCPCS: 76857

== ENCOUNTER → 2025-03-22 09:51 | Outpatient (BNVA) | payer MEDICARE, SELFPAY | PROVIDERS: PCP Nurse Practitioner Family; Referring Provider Nurse Practitioner Family; Visit Provider Surgery | DX: K40.90 Unilateral inguinal hernia, without obstruction or gangrene, not specified as recurrent (principal) | CPT/HCPCS: 99214 ==

== ENCOUNTER 2025-04-03 10:32 | Day surgery (SDC) | payer MEDICARE, SELFPAY ==
[2025-04-03] VITALS (18 sets, daily range): BP systolic 113–168; BP diastolic 56–91; PULSE 60–85; RESP 11–23; TEMP 36.3–36.5; O2SAT 92–99; BMI 26.2
--- NOTE | 2025-04-03 09:47 | PDOC.DSDIS_ITS ---
Date of service: 04/03/25 Discharge Plan Disposition Patient Disposition: Home Condition: Stable Discharge Details Attending Provider: Lu Tiwari Primary Care Provider: Siomara Mckeon Recommendations for Follow Up Recommended tests to be ordered by follow up provider: Surgeon to follow up with [facility] Meds and New Rx's Prescriptions: New hydrocodone-acetaminophen 5-325 mg tablet 1 tab PO Q6H PRNQty: 10 0RF Continued amlodipine 5 mg tablet 5 mg PO DAILY Qty: 90 3RF lisinopril 30 mg tablet 30 mg PO DAILY Qty: 90 1RF latanoprost 0.005 % drops 1 drp ophthalmic (eye) QPM lxneiamkurfk-okscawkj-vanjqkb 1-0.5-0.075 % drops,suspension 1 drp ophthalmic (eye) QDAY multivitamin Tablet 1 tab PO DAILY acetaminophen [Tylenol] 325 mg capsule 650 mg PO Q6H PRN (Reason: fever or pain) Qty: 30 0RF No Action pa restless leg Patient Comments: Contains: [place] Album, Lycopodium, [place], Rhus Toxicodendron, [place], Zimcum Metallicum Discharge Instructions Additional Instructions: Shower in 24 hours. Wash gently over skin glue with soapy hands, rinse, pat dry. Don't peel glue or submerge incisions under water. Do not clean the glue with rubbing alcohol or any solvents beyond your regular soap/body wash and water. The glue will start to come off on its own in about 2 weeks. Ok to walk, climb stairs, and resume normal activities of daily living. Do not lift/push/pull more than 20lb for 4 weeks. Do not exercise until cleared by surgeon in office. Sit at table for meals, dont lay in bed all day after your first recovery day. The sooner you return to regular activities and movements, the sooner you will start to feel better. Swelling and bruising in the groin and scrotum is normal and expected. You may e cassie notice an eggplant-like change to the scrotum or labia on the side(s) of the repair. This is harmless and will improve over time. Elevate the scrotum with washcloth rolls while laying down, or gently ice the swollen areas for 2-4 minutes at a time if desired for comfort. Monitor yourself for constipation during recovery. Add a stool softener or laxative if no bowel movement within 36 hours. Call or return for fever or incisional problems. Activity:: as above Shower/Bathe:: 24 hours Diet:: As Tolerated DS: Diagnosis Discharge Diagnosis (1) Left inguinal hernia: Status: Acute (2) Incarcerated left inguinal hernia: Status: Acute
[2025-04-03] MEDS: Lactated Ringers 1,000 ML 80 ML IV (11:39)
--- NOTE | 2025-04-03 12:13 | ANES.PREOP_ITS ---
General Info Date of Service Date Performed: 04/03/25 Height: 5 ft 8.5 in Weight: 79.4 kg Body Mass Index (BMI): 26.2 Surgical Procedure: Operation Date: 04/03/25 11:40 Proposed Procedure Side Surgeon p Hernia Inguinal Laparoscopic w/Mesh Left Lu Tiwari MD Meds Allergies and Home Medications Allergies Allergy/AdvReac Type Severity Reaction Status Date / Time No Known Allergies Allergy Verified 04/03/25 11:02 Home Medication ?Medication ?Instructions ?Recorded multivitamin 1 tab PO DAILY 05/21/20 acetaminophen 325 mg capsule 650 mg (2 x 325 mg) PO Q6 H PRN 05/23/20 (Tylenol) fever or pain #30 caps latanoprost 0.005 % eye drops 1 drp ophthalmic (eye) Q PM 01/28/22 amlodipine 5 mg tablet 5 mg PO DAILY #90 tabs 02/21 lisinopril 30 mg tablet 30 mg PO DAILY #90 tabs 01/25 04/20 prednisolone 1 %-moxifloxacin 0.5 1 drp ophthalmic (ey e) QDAY 03/31/25 %-bromfenac 0.075 % eye drops susp hydrocodone 5 mg-acetaminophen 325 1 tab PO Q6H PRN #1 0 tabs 04/03/25 mg tablet pa restless leg restless legs 04/03/25 Current Visit Medications: Current Medications Generic Name Dose Route Start Last Admin Trade Name Freq PRN Reason Stop Dose Admin Ringer's Solution 1,000 mls @ 80 mls/hr 04/03/25 06:00 04/03/25 11:39 IV 04/30/25 23:59 80 mls/hr INFUSION MELISSA Administration Cefazolin Sodium/Dextrose 2 gm in 50 mls @ 100 mls/hr 04/03/25 06:00 Ancef Duplex IVPB 04/30/25 23:59 PREOP MELISSA IV Miscellaneous Supplies 1 each 04/03/25 06:00 Iv Access IV 04/30/25 23:59 DIRECTED MELISSA Sodium Chloride 0 ml 04/03/25 06:00 Normal Saline Flush 10 Ml Syr IV 04/30/25 23:59 PRN PRN Sodium Chloride 0 ml 04/03/25 06:00 Normal Saline 10 Ml Vial IJ 04/30/25 23:59 DIRECTED PRN Sterile Water 0 ml 04/03/25 06:00 Water,Injection,Sterile 10 Ml Vial IJ 04/30/25 23:59 DIRECTED PRN PFSH Active Problems Active Problems: Problem Status Onset Code Left inguinal hernia Acute K40.90 H pylori ulcer Acute K27.9, B96.81 Duodenal ulcer Acute K26.9 BPH (benign prostatic hyperplasia) Chronic N40.0 Duodenitis Acute K29.80 Vision changes Acute H53.9 Skin lesions Acute L98.9 Lightheadedness Acute R42 HTN (hypertension) Acute I10 Hyperlipidemia Acute E78.5 Medical History Medical History Urinary urgency Right inguinal hernia Repaired 04/2020 Dribbling urine Orthostatic dizziness Palpitations Had worked up with ZIO patch per Peritz 09/13/19 Per note:?The patient was in normal sinus rhythm for the majority of the recording. ?There were 9 episodes of supraventricular tachycardia with the longest lasting 19 beats. ?There were frequent (8.7%) isolated supraventricular ectopic beats. ?There were no episodes of ventricular tachycardia and rare (less than 1%) single ventricular ectopic beats. ?There were no episodes of atrial fibrillation no pauses greater than 3 seconds and no episodes of high degree heart block. ?Patient triggered events were associated with sinus rhythm as well as supraventricular ectopic beats. Surgical History Surgical History History of esophagogastroduodenoscopy (EGD) (~05/2024) History of tonsillectomy and adenoidectomy History of vasectomy Tobacco Smoking/Tobacco Use Status: Former Tobacco Use Passive smoking exposure: Yes (As a child) Second hand exposure: Yes (Not in a long long time) Alcohol Alcohol Intake: never Substance Use Substance use: Never Substance use type: does not use Vital Signs and Lab Results Vital Signs Most Recent Vital Signs in EMR: Most Recent Vital Signs Temp Pulse Resp BP Pulse Ox 36.4 C L 64 16 168/77 H 99 04/03/25 10:56 04/03/25 10:56 04/03/25 10:56 04/03/25 10:56 04/03/25 10:56 Imaging and Studies Imaging and Studies Study information below may be from another EMR and interpreted by another provider. Please see original notes in EMR for more complete details. EKG Summary: 05/03/24: Exam: Resting ECG Reason for Exam: pre-op Patient Location: E HR:85 bpm ECG Measurements Heart Rate 85 AXIS IL 124 P 31 QRSd 94 QRS 12 QT 389 T63 QTc 463 Conclusion Sinus rhythm...normal P axis, V-rate 60- 99 Atrial premature complexes...SV complexes w/ short R-R intvls Otherwise normal ECG Anesthesia Assessment and Plan Anesthesia History Personal History: No History of Anesthesia Complications Family History: No Family History of Anesthesia Complications Exercise Tolerance Exercise Tolerance: Metabolic Equivalents>4 Pertinent Negatives Pertinent Negatives: No Symptoms of GERD, No Major Cardiovascular Symptoms or Complaints, No Major Pulmonary Symptoms or Complaints and No History of CVA/TIA Cardiac & Pulmonary Exam Cardiac Exam: Normal S1/S2 Heart Sounds Pulmonary Exam: Clear Bilateral Breath Sounds Implantable Cardiac Device Does patient have a Pacemaker or an ICD?: No Airway Exam Known Difficult Airway: No Mallampati Class: 2 Mouth Opening: Normal (> 3cm) Thyromental Distance: Greater than 3 cm Neck Range of Motion: Full ROM Neck Circumference: Normal Teeth Condition: Normal Dentition ASA Classification ASA Score: ASA 2 Emergency Case?: No NPO Status NPO Status: NPO Clears >2 hours, Solids >8 hours Anesthesia Plan Resuscitation Status: Full Code Anesthesia Technique: General Anesthesia Airway Planned: Endotracheal Tube Monitors Used: Standard Monitors and SedLine
[2025-04-03] MEDS: ceFAZolin 2 GM/50 ML BAG IVPB (13:11)
[2025-04-03] MEDS: Bupivacaine 0.5% Pres-Free W/EPI 30 ML VIAL (13:37)
--- NOTE | 2025-04-03 14:47 | W.PM.OP ---
Operative Note Operative Note PRE-OP DIAGNOSIS: left inguinal hernia POST-OP DIAGNOSIS: other (incarcerated left inguinal hernia) PROCEDURE: laparoscopic left inguinal hernia repair with mesh SURGEON: Lu Tiwari CLIENT RELATIONS SPECIALIST: Ang Vazquez ANESTHESIA TYPE: Local By Surgeon and General LMA/ETT Refer to Anesthesia Record ESTIMATED BLOOD LOSS: 20 PATHOLOGY: none sent COMPLICATIONS: None Implants: LARGE LEFT sided Bard 3D Mid Mesh Procedure Description: This is a 74yo M with a left inguinal hernia that is symptomatic. He was seen in the office and scheduled for laparoscopic repair. On the day of surgery informed consent was confirmed after discussion of the procedure risks, benefits, alternatives, and expectations. The patient asked good questions and verbalized understanding of the plan. He was taken to the operating room The operating room he was placed supine on the operating table. SCDs were placed and all pressure points were padded appropriately general anesthesia was induced the abdomen was clipped prepped and draped in the usual sterile fashion. Timeout was performed. Local anesthetic was infiltrated into the skin and subcutaneous tissues at each port access site. A midline vertical incision was made below the umbilicus and the subcutaneous tissue was dissected down to the level of the fascia using cautery. The fascia was retracted to the right of the midline. The anterior rectus sheath was opened sharply and muscle-splitting technique was used to retract the muscle fibers over the peritoneum. A peon clamp was used to access the preperitoneal space down to the pubic bone. A Spacemaker balloon was inserted and directed at the pubic bone. Spacemaker balloon was inflated and deflated and the port advanced into the preperitoneal space. Insufflation to 15 mmHg was accomplished with carbon dioxide gas. Laparoscopy revealed no injury to the underlying structures. The preperitoneal space was well-developed with the balloon dissector. Two 5 mm ports were placed in the midline under direct visualization. The pubic bone was cleared. The lateral wall was cleared. There were both direct and indirect hernias present. The hernia sac was noted high along the cord structures as an indirect inguinal hernia, and lateral to the inferior epigastric vessels it bulged into a direct defect as well. The sac was dissected bluntly from the cord structures. It was bluntly dissected from the direct hernia site. Incarcerated preperitoneal fat was taken down out of the direct defect. Cord lipomas were also reduced on the indirect portion. The fat and lipomas were removed through the port sites and discarded. There was a lot of dense scarring between the sac and the cord structures indicating chronicity. Once the sac was dissected free from both defects it was confirmed to be low and posterior in the preperitoneal space. A large sized 3D max MID mesh was selected for the repair. The mesh was introduced to the preperitoneal space and positioned over the direct and indirect spaces. It was tacked to the iliopubic tract at 3 points. There was adequate coverage of the direct and indirect defects with generous overlap. There was no evidence of obturator or femoral hernia from this view. The preperitoneal space was desufflated under direct visualization and the mesh lay flat at the repair site. Abdominal insufflation that occurred during hernia repair was released by puncturing the peritoneum at the umbilicus. The anterior rectus sheath was reapproximated with an 0 Vicryl [id number] stitch. The skin at each port site was closed with simple interrupted subcuticular 4-0 Monocryl. The skin was washed and dried and surgical skin glue was applied to the incisions. All sponge and instrument counts were correct at the end the case. The patient tolerated the procedure well. He extubated in the operating room and transferred to the recovery room in stable condition. There were no complications. Date of Procedure: 04/03/25
[2025-04-03] MEDS: fentaNYL 100 MCG/2 ML VIAL IVP (15:20)
--- NOTE | 2025-04-03 16:16 | W.ANESPOSTOP ---
Postoperative Evaluation Date, Time and Location Date Performed: 04/03/25 Time Performed: 16:16 Patient Location: PACU Vital Signs Most Recent Imported Vital Signs: Most Recent Vital Signs Temp Pulse Resp BP Pulse Ox 36.5 C 68 16 116/70 95 04/03/25 15:38 04/03/25 15:38 04/03/25 15:38 04/03/25 15:38 04/03/25 15:38 Pain Score Most Recent Pain Score: Most Recent Pain Score Pain Level 4 04/03/25 15:38 Assessment Mental Status: Awake (Alert & Oriented to Patient Baseline) Airway and Respiratory Function: Patent airway with normal (patient baseline) respiratory exam Cardiovascular Function: Hemodynamically Stable Hydration Status: Adequately Hydrated Nausea & Vomiting: No Nausea or Vomiting Pain: Pain is tolerable per patient Peripheral Nerve Block: Patient did not receive a nerve block
== END 2025-04-03 16:46 | disposition home or self-care (01) ==
LOC: SUR 10:33
PROVIDERS: PCP Nurse Practitioner Family; Visit Provider Surgery
PROC: (CPT 49650; principal; 2025-04-03 11:30)
DX: K40.30 Unilateral inguinal hernia, with obstruction, without gangrene, not specified as recurrent (principal)
CPT/HCPCS: 49650; C1781; J0131; J0690; J1100; J2003; J2371; J2405; J2704; J3010; J3475

== ENCOUNTER → 2025-04-14 09:03 | Outpatient (BNVA) | payer MEDICARE, SELFPAY | PROVIDERS: PCP Nurse Practitioner Family; Referring Provider Nurse Practitioner Family; Visit Provider Surgery | DX: Z98.890 Other specified postprocedural states (principal); Z87.19 Personal history of other diseases of the digestive system | CPT/HCPCS: 99024 ==

== ENCOUNTER 2025-04-20 01:09 | Outpatient (CLI) | payer MEDICARE, SELFPAY ==
[2025-04-20 09:37] LABS: ALT 20 U/L (16-63); AST 19 U/L (15-37); Albumin 3.7 g/dL (3.4-5.0); Alkaline Phosphatase 64 U/L (46-116); Anion Gap 8.0 mmol/L (3-11); BUN 19 mg/dL (7-18); Bilirubin, Total 0.6 mg/dL (0.2-1.0); CO2 27.0 mmol/L (21.0-32.0); Calcium 9.2 mg/dL (8.5-10.1); Calculated LDL 202 mg/dL (<100); Chloride 107 mmol/L (98-107); Cholesterol 270 mg/dL (<200); Estimated GFR 70.44 (mL/min/1.73m2); Glucose 87 mg/dL (74-106); HDL Cholesterol 45 mg/dL (>or=40); Potassium 4.3 mmol/L (3.5-5.1); Sodium 142 mmol/L (136-145); Total Protein 7.0 g/dL (6.4-8.2); Triglyceride 116 mg/dL (<150)
[2025-04-20 18:48] LABS: PSA, Screening 2.8 ng/mL (<=6.5)
== END 2025-04-20 01:10 | disposition home or self-care (01) ==
LOC: LBO 01:10
PROVIDERS: PCP Nurse Practitioner Family; Visit Provider Nurse Practitioner Family
DX: Z12.5 Encounter for screening for malignant neoplasm of prostate (principal); Z00.00 Encounter for general adult medical examination without abnormal findings; I10 Essential (primary) hypertension; E78.2 Mixed hyperlipidemia; N40.0 Benign prostatic hyperplasia without lower urinary tract symptoms
CPT/HCPCS: 36415; 80053; 80061; 84153